=== PATIENT | female | born 2000 | race Caucasian/White ===

== ENCOUNTER 2019-11-20 22:55 | Emergency (ER) | payer OTHER, SELFPAY ==
[2019-11-20 23:19] VITALS: BP 94/63; PULSE 88; RESP 18; TEMP 36.6; O2SAT 98; BMI 25.0
--- NOTE | 2019-11-21 01:08 | ED_ITS ---
Entered by Talisha Morse, acting as scribe for Nov 20, 2019 22:55 HPI - Ear Problem General: Chief complaint: Ear Stated complaint: L EAR PAIN Time Seen by Provider: 11/21/19 01:03 Source: patient Mode of arrival: ambulatory Limitations: no limitations History of Present Illness: HPI Narrative: 19 yo f came to the er pov with spouse for left ear pain. Onset started today. Pt states that as of right now in the er she has no pain. MD Complaint: ear pain (left side) Location: left ear Duration: resolved Severity: mild Relieving factors: nothing Exacerbating factors: nothing Discharge from ear: no Associated symptoms: Reports ear or mastoid pain; Denies fever(s), headache(s) or hearing loss Treatment prior to arrival: none Review of Systems General: Reports: other (negative unless marked) Const: Denies: fever or chills Eyes: Denies: change in vision ENMT: Reports: ear pain; Denies: throat pain or mouth pain Card: Denies: chest pain Resp: Denies: shortness of breath GI: Denies: abdominal pain, nausea, vomiting or diarrhea : Denies: difficulty urinating Musc: Denies: back pain or joint pain Skin/Breast: Denies: rash Neuro: Denies: headache or behavioral changes Psych: Denies: depression Endo: Denies: excessive urination Corky/Lymph: Denies: easy bruising All/Imm: Denies: hives PFSH ED PFSH: Statuses (acute, chronic, etc) shown below reflect problem list status as previously entered and may not be historically accurate Social History Smoking and tobacco status: former smoker Female Reproductive History: Date of last menstrual period: 11/10/19 Physical Exam Const: COMMON NORMALS: no apparent distress, oriented x3 and healthy appearing HENMT: COMMON NORMALS: normocephalic and external nose normal HEAD & SCALP: normocephalic NOSE: external nose normal OTHER: Erythema to left ear canal Eye: COMMON NORMALS: PERRL PUPIL: Yes PERRL Neck/C-Spine: COMMON NORMALS: full ROM and no lymphadenopathy Chest: COMMONS NORMALS: inspection of chest normal Resp: COMMON NORMALS: normal respiratory effort, no use of accessory muscles and clear to auscultation bilaterally AUSCULTATION: clear to auscultation bilaterally Cardio: COMMON NORMALS: regular rate and regular rhythm RATE: regular rate RHYTHM: regular rhythm GI: COMMON NORMALS: normal to inspection, nondistended, normoactive bowel sounds, soft to palpation, non-tender and no masses PALPATION: Yes soft Back/Pelvis: THORACIC SPINE/UPPER BACK: Yes normal to inspection Extremity: COMMON NORMALS: normal to inspection, full ROM and normal capillary refill Neuro: COMMON NORMALS: oriented x3 Psych: COMMON NORMALS: mental status grossly normal and cooperative Skin: COMMON NORMALS: no rashes or lesions noted GENERAL SKIN EXAM: no rashes or lesions noted Course Vital Signs: Vital signs: Vital Signs Temperature 97.9 F 11/20/19 23:19 Pulse Rate 88 11/20/19 23:19 Respiratory Rate 18 11/20/19 23:19 Blood Pressure 94/63 11/20/19 23:19 Pulse Oximetry 98 11/20/19 23:19 MDM - Ear MDM Narrative: Medical decision making narrative: Patient presents here with ear pain is found to have otitis externa. Patient has no signs of otitis media. Patient prescribed Cortisporin and is stable for discharge. Discharge Plan Discharge Patient Disposition: Home, Self-Care Clinical Impression: Otitis externa Qualifiers: Otitis externa type: unspecified type Laterality: left Condition: Stable Prescriptions: New Cortisporin-TC 3.3-3-10-0.5 mg/mL drops,suspension 4 drop EAR-BOTH TID Qty: 10 RF: 0 Discharge Orders: Discharge Order (Routine); Ordered 11/21/19 Ordered By: Rakesh Valenzuela Referrals: Anusha Price DO [Family Provider] - Discharge Diet: Advance as tolerated Discharge Activity: Resume usual activity Patient Instructions: Otitis Externa (ED) Coding Level of Care Code ED Cpc for Chg Fwd The documentation recorded by the Lito hernandez Stephanie Lyn, accurately reflects the service I personally performed and the decisions made by Nicolas poon Korby, MD Nov 20, 2019 22:55
[2019-11-21 01:23] VITALS: BP 111/67; PULSE 58; RESP 18; O2SAT 98
[2019-11-21 01:29] VITALS: BP 121/70; PULSE 76; RESP 18; TEMP 36.8; O2SAT 98
== END 2019-11-21 01:31 | disposition home or self-care (01) ==
PROVIDERS: Emergency Provider Emergency Medicine; Family Provider Family Medicine
DX: H60.92 Unspecified otitis externa, left ear (principal); Z87.891 Personal history of nicotine dependence
CPT/HCPCS: 99281

== ENCOUNTER 2019-12-28 22:45 | Emergency (ER) | payer OTHER, SELFPAY ==
[2019-12-28 22:51] VITALS: BP 101/70; PULSE 68; RESP 18; TEMP 36.4; O2SAT 98; BMI 25.0
--- NOTE | 2019-12-29 00:21 | XR_ITS ---
WS: [id number] TWO-VIEW CHEST HISTORY: 19 years old Female with right posterior thorax pain PA and lateral chest comparison 09/07/2019 FINDINGS: No pneumothorax, pleural effusion, or consolidation/atelectasis. Cardiomediastinal silhouette and pul monary vascular markings are unremarkable. No subdiaphragmatic free air. No fracture or destruction s een. XR/XR chest 2V* [id number] IMPRESSION: 1. No acute cardiopulmonary findings. 2. No definite acute osseous abnormality. If there's thoracic back pain, consid er follow-up MRI thoracic spine, if clinically appropriate.
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
--- NOTE | 2019-12-29 00:33 | PC.NURSE ---
Clean catch urine collected and sent to lab
[2019-12-29 00:42] LABS: HCG Qualitative Urine. Negative (Negative)
[2019-12-29 01:14] VITALS: BP 107/69; PULSE 75; RESP 18; O2SAT 96
== END 2019-12-29 01:15 | disposition home or self-care (01) ==
PROVIDERS: Emergency Provider Nurse Practitioner; Family Provider Family Medicine; PCP Family Medicine
DX: M54.6 Pain in thoracic spine (principal)
CPT/HCPCS: 71046; 81025; 99281; 99282

== ENCOUNTER → 2019-12-29 16:35 | Outpatient (BNVA) | payer SELFPAY | PROVIDERS: Family Provider Family Medicine; PCP Nurse Practitioner; Visit Provider Nurse Practitioner Family | DX: R52 Pain, unspecified (principal); L05.01 Pilonidal cyst with abscess | CPT/HCPCS: 81003 ==

== ENCOUNTER 2020-01-24 21:37 | Emergency (ER) | payer OTHER, SELFPAY ==
[2020-01-24 21:38] VITALS: BP 109/78; PULSE 75; RESP 14; TEMP 36.7; O2SAT 74; BMI 25.3
--- NOTE | 2020-01-24 21:45 | PC.NURSE ---
Patient reports that she has had tailbone discomfort and swelling for 3 days. Patient denies any injury.
--- NOTE | 2020-01-24 21:47 | W.ED.BACK ---
HPI - Back Pain/Injury General: Chief Complaint: Back Pain/Injury Stated Complaint: SWOLLEN TAILBONE AREA Time Seen by Provider: 01/24/20 21:47 History of Present Illness: HPI Narrative: Patient is a 19-year-old female who comes to the ED with low back pain. Patient states that the pain started about 3 days ago. She says she has had some swelling around the tailbone area, but currently there is no swelling. She says she has trouble sitting for longer than 20 minutes without pain starting. She denies any injury or trauma to the tailbone region. She does say it is uncomfortable sleeping at night and if she is on her back and all causes pain. denies any numbness, tingling or weakness to any extremities. No pain radiating down the legs. No bladder or bowel incontinence. Associated symptoms: Deny abdominal pain, chills, dysuria, fatigue, fever(s), hematuria, nausea or vomiting Review of Systems Const: Denies: fever, chills or fatigue Eyes: Denies: change in vision or eye discomfort ENMT: Denies: throat pain, painful swallowing, nasal discharge or nasal congestion Card: Denies: chest pain, palpitations, edema, swelling of feet/ankles, shortness of breath on exertion or shortness of breath when lying down Resp: Denies: shortness of breath, productive cough or non-productive cough GI: Denies: abdominal pain, nausea, vomiting, diarrhea, constipation or blood in stool : Denies: flank pain, painful urination or blood in urine Musc: Reports: back pain (low back); Denies: neck pain or extremity swelling Skin/Breast: Denies: rash or new lesion Neuro: Denies: headache, numbness in extremities or weakness in extremities [facility] ED PFSH: Medical History ADD (attention deficit disorder) Anxiety Depression IBS (irritable bowel syndrome) Low back pain Family History Father Diabetes Social History Smoking and tobacco status: current some day smoker cigarettes Alcohol intake: current Alcohol intake frequency: few times a month History of recent travel: No Female Reproductive History: Date of last menstrual period: 01/01/20 Physical Exam Narrative: EXAM NARRATIVE: Patient is a 19-year-old female who is sitting comfortably on the exam bed when I enter the room. She is in no acute distress or pain. Const: COMMON NORMALS: oriented x3 HENMT: COMMON NORMALS: normocephalic HEAD & SCALP: normocephalic MOUTH: oral and palatal mucosa normal THROAT: posterior oropharynx normal and uvula midline Neck/C-Spine: COMMON NORMALS: supple GENERAL: Yes normal visual inspection Resp: COMMON NORMALS: normal respiratory effort, no retractions, no use of accessory muscles and clear to auscultation bilaterally AUSCULTATION: clear to auscultation bilaterally Cardio: COMMON NORMALS: regular rate, regular rhythm, S1 normal heart sound, S2 normal heart sound, no gallops, no clicks, no murmurs and peripheral pulses 2+ throughout RATE: regular rate RHYTHM: regular rhythm HEART SOUNDS: S1 normal and S2 normal PERIPHERAL PULSES: pulses 2+ throughout GI: COMMON NORMALS: normal to inspection, nondistended, normoactive bowel sounds, soft to palpation, non-tender and no masses PALPATION: Yes soft : COMMON NORMALS: Yes no CVA tenderness BLADDER/KIDNEY EXAM: Yes no CVA tenderness Back/Pelvis: COMMON NORMALS: no CVA tenderness LUMBAR SPINE/LOWER BACK: Yes paraspinal muscle tenderness (mild) Lumbar paraspinal muscle tenderness: bilateral OTHER: I did not notice any swelling in the lumbar spine region. Extremity: COMMON NORMALS: normal to inspection Neuro: COMMON NORMALS: oriented x3 and moves all extremities Skin: COMMON NORMALS: no rashes or lesions noted GENERAL SKIN EXAM: no rashes or lesions noted and dry skin Course Vital Signs: Vital signs: Vital Signs Temperature 98.1 F 01/24/20 21:38 Pulse Rate 89 01/24/20 22:22 Respiratory Rate 16 01/24/20 22:22 Blood Pressure 122/78 01/24/20 22:22 Pulse Oximetry 97 01/24/20 22:22 Discharge Plan Discharge Patient Disposition: Home, Self-Care Clinical Impression: Low back pain Qualifiers: Chronicity: acute Back pain laterality: bilateral Sciatica presence: without sciatica Qualified Code(s): M54.5 - Low back pain Condition: Stable Prescriptions: New Robaxin-750 750 mg tablet 750 mg PO Q8H Qty: 20 RF: 0 No Action ibuprofen 800 mg tablet 800 mg PO Q8H PRN (Reason: pain and inflammation) Qty: 90 RF: 1 Discharge Orders: Discharge Order (Routine); Ordered 01/24/20 Ordered By: Hai Barriga Referrals: Maggie Calderon FNP [Primary Care Provider] - Anusha Price DO [Family Provider] - Discharge Diet: Regular Discharge Activity: Resume usual activity Patient Instructions: Ibuprofen (By mouth), Acute Low Back Pain (ED) Activity Restrictions/Additional Instructions: Follow-up with your PCP in 7 days for reevaluation. You can take [id number] ibuprofen to help with any pain and inflammation. Take the Robaxin (muscle relaxer) at night because it can make you feel drowsy. Discharge Date/Time: 01/24/20 22:23 Coding Level of Care Code ED Regulatory Affairs Manager for Dannielle Fwd Exam Comprehensive
[2020-01-24] MEDS: orphenadrine 30 mg/mL Inj 2 mL 60 MG IM (22:18)
[2020-01-24] MEDS: ketorolac 30 mg/mL INJ IM (22:19)
[2020-01-24 22:22] VITALS: BP 122/78; PULSE 89; RESP 16; O2SAT 97
== END 2020-01-24 22:23 | disposition home or self-care (01) ==
PROVIDERS: Emergency Provider Physician Assistant; Family Provider Family Medicine; PCP Nurse Practitioner
DX: M54.5 Low back pain (principal); F90.9 Attention-deficit hyperactivity disorder, unspecified type
CPT/HCPCS: 12345; 96372; 99281; 99283; J1885; J2360

== ENCOUNTER 2020-01-31 09:26 | Emergency (ER) | payer OTHER, SELFPAY ==
[2020-01-31 09:27] VITALS: BMI 25.0
--- NOTE | 2020-01-31 09:28 | W.ED.PSYCH ---
HPI - Psych General: Chief Complaint: Psychiatric Symptoms Stated Complaint: SELF INFLICTED WOUND TO FOREARM Time Seen by Provider: 01/31/20 09:28 Source: patient Mode of arrival: EMS Limitations: no limitations History of Present Illness: HPI Narrative: Patient is a 19-year-old female who presents to ED today via EMS for complaints of self-inflicted cuts to her left forearm. Patient tells me her told her earlier today that she was leaving and this made patient very upset so she began cutting her left forearm with a razor blade. Patient told myself as well as EMS that she did not do this with an intention of self harming and denies suicidal thoughts. Patient states that she has cut previously in regards to anger. Patient tells me she does have a longstanding history of depression. She at one time was taking Prozac but has not been on this medication in over a year. She states she did not feel like it helped when she was on it. Patient is not homicidal. She denies hallucinations. MD complaint: other (self harming behavior by cutting ) Onset (ago): hour(s) History of same: Yes Exacerbating factors: other (social stressor ) Associated psychiatric symptoms: depression Associated symptoms: Reports depression; Deny auditory hallucinations, visual hallucinations, homicidal ideation or suicidal ideation Treatments prior to arrival: none If self harm: self-inflicted trauma Review of Systems Const: Denies: fever or chills Card: Denies: chest pain, palpitations, lightheadedness or syncope Resp: Denies: shortness of breath GI: Denies: abdominal pain, nausea, vomiting or diarrhea Skin/Breast: Denies: rash Neuro: Denies: headache Psych: Reports: depression; Denies: anxiety, visual hallucinations, auditory hallucinations, suicidal ideation or homicidal ideation [facility] ED PFSH: Social History Smoking and tobacco status: current some day smoker cigarettes Alcohol intake: current Alcohol intake frequency: few times a month History of recent travel: No Female Reproductive History: Date of last menstrual period: 01/01/20 Physical Exam Const: COMMON NORMALS: no apparent distress, oriented x3, alert and well nourished GENERAL APPEARANCE: cooperative and well kempt Resp: COMMON NORMALS: normal respiratory effort and clear to auscultation bilaterally AUSCULTATION: clear to auscultation bilaterally Cardio: COMMON NORMALS: regular rate and regular rhythm RATE: regular rate RHYTHM: regular rhythm Extremity: OTHER: several superficial wharton to L forearm-none requiring repair Neuro: COMMON NORMALS: oriented x3 SENSORIUM/ORIENTATION: Yes alert Psych: COMMON NORMALS: mental status grossly normal, thought process normal, cooperative, affect normal, speech normal and activity/motor behavior normal APPEARANCE: Yes well kempt ACTIVITY/MOTOR BEHAVIOR: Yes appropriate eye contact and No psychomotor agitation SPEECH: Yes normal speech THOUGHT PROCESS: normal thought process THOUGHT CONTENT: Yes normal thought content MEMORY/COGNITION: Yes memory grossly intact and Yes cognition grossly intact INSIGHT: insight good JUDGEMENT: fair MDM - Psych MDM Narrative: Medical decision making narrative: Patient does states she wishes to get on antidepressants again. I feel patient would be best served by doing a [facility] intake exam at this time. I do not wish to start patient on an SSRI from the ED as I have no follow-up with her. She does not want to come inpatient for help. Patient is not suicidal or homicidal therefore I do not have a reason to take away patient's rights and 96 her. Recommend she go straight from the ED to [facility] for her intake screening exam. Return to ED precautions given regarding suicidal thoughts. Patient agrees to return if these occur. Discharge Plan Discharge Patient Disposition: Home, Self-Care Clinical Impression: Self-harming behaviour Condition: Stable Prescriptions: No Action ibuprofen 800 mg tablet 800 mg PO Q8H PRN (Reason: pain and inflammation) Qty: 90 RF: 1 methocarbamol [Robaxin-750] 750 mg tablet 750 mg PO Q8H Qty: 20 RF: 0 Discharge Orders: Discharge Order (Routine); Ordered 01/31/20 Ordered By: Radha Castillo Referrals: Maggie Calderon FNP [Primary Care Provider] - Anusha Price DO [Family Provider] - Discharge Diet: Usual diet Discharge Activity: Resume usual activity Activity Restrictions/Additional Instructions: As discussed please go by [facility] today for your intake screening exam between the hours of 7:30-2:30. You have stated that you do not wish to go inpatient at this time and based on the fact that you have stated you are not suicidal or homicidal I do not feel this is acutely necessary. Please return to the emergency department immediately if you begin having thoughts of self-harm. Discharge Date/Time: 01/31/20 10:01 Coding Level of Care Code ED Iron Caster for Dannielle Amaya
[2020-01-31 09:33] VITALS: BP 127/101; PULSE 84; RESP 16; TEMP 36.7; O2SAT 98
--- NOTE | 2020-01-31 09:33 | PC.NURSE ---
WHEN PT ASKED ABOUT BEING SUICIDAL DOWN OR DEPRESSED SHE STATES NO, WHEN ASKED WHY SHE CUT HERSELF STATES MY TOLD ME SHE WAS LEAVING, PT TEARFUL DURING TRIAGE
== END 2020-01-31 10:01 | disposition home or self-care (01) ==
LOC: ER 09:48
PROVIDERS: Emergency Provider Physician Assistant; Family Provider Family Medicine; PCP Nurse Practitioner
DX: S51.812A Laceration without foreign body of left forearm, initial encounter (principal); Z91.5 Personal history of self-harm; X78.9XXA Intentional self-harm by unspecified sharp object, initial encounter; X78.8XXA Intentional self-harm by other sharp object, initial encounter
CPT/HCPCS: 12345; 99284

== ENCOUNTER → 2020-03-17 08:32 | Outpatient (BNVA) | payer OTHER, SELFPAY | PROVIDERS: Family Provider Family Medicine; PCP Nurse Practitioner; Visit Provider Counselor Professional | DX: F32.9 Major depressive disorder, single episode, unspecified (principal); F41.9 Anxiety disorder, unspecified; F90.9 Attention-deficit hyperactivity disorder, unspecified type | CPT/HCPCS: 90834 ==

== ENCOUNTER 2020-03-27 20:06 | Inpatient (IN) | payer SELFPAY ==
[2020-03-27 20:08] VITALS: BP 115/58; PULSE 111; RESP 18; TEMP 37.1; O2SAT 96; BMI 25.0
[2020-03-27 20:55] LABS: Basophils % 0.6 %; Eosinophils # 0.1 10^3/uL (0.0-0.8); Eosinophils % 1.5 %; Hematocrit 37.8 % (37.0-47.0); Hemoglobin 12.2 g/dL (11.5-15.3); Lymphocytes # 1.6 10^3/uL (0.8-4.8); Lymphocytes % 21.8 %; Mean Corpuscular HGB Conc 32.3 g/dL (30.0-36.0); Mean Corpuscular Hemoglobin 28.5 pg (28.0-34.0); Mean Corpuscular Volume 88.3 fL (81-99); Mean Platelet Volume 11.5 fL (7.4-10.4); Monocytes # 0.6 10^3/uL (0.2-0.9); Monocytes % 7.7 %; Neutrophils # 4.9 10^3/uL (1.8-7.7); Neutrophils % 68.1 %; Nucleated Red Blood Cells % 0 %; Platelet Count 201 10^3/cmm (130-400); Red Blood Count 4.28 10^6/uL (4.1-5.3); Red Cell Distribution Width 12.3 % (12.1-15.1); White Blood Count 7.2 10^3/uL (4.0-10.0)
[2020-03-27 21:08] LABS: Alanine Aminotransferase 158 U/L (0-33); Albumin Level 4.5 g/dL (3.5-5.2); Alkaline Phosphatase 100 IU/L (35-105); Anion Gap 15.9 (5-19); Aspartate Amino Transferase 108 U/L (0-32); Blood Urea Nitrogen 12 mg/dL (6-20); Calcium 9.5 mg/dL (8.5-10.5); Carbon Dioxide 24 mmol/L (22-29); Chloride 103 mmol/L (98-107); Globulin 2.8 g/dL (1.3-4.6); Glomerular Filtration Rate 105.6 mL/min (90-130); Glucose 84 mg/dL (65-115); Osmolality Calculated 283 mOsm/kg (285-295); Potassium 3.9 mmol/L (3.5-5.1); Sodium 139 mmol/L (136-145); Total Bilirubin 0.5 mg/dL (0.15-1.2); Total Protein 7.3 g/dL (6.6-8.7)
[2020-03-27 21:10] LABS: Add Urine Microscopic? YES; Bilirubin Urine Neg (NEGATIVE); Blood Urine 3+ (Negative); Glucose Urine UA Norm (Normal); HCG Qualitative Urine. Negative (Negative); Ketones Urine Negative (Negative); Leukocyte Esterase Urine Negative (Negative); Nitrate Urine Negative (Negative); Protein Urine Neg (Negative); Specific Gravity, Urine 1.015 (1.005-1.030); Urine Appearance Clear (CLEAR); Urine Color Yellow (Yellow); Urobilinogen Urine Norm (Negative); pH Urine 6 (5-7)
[2020-03-27 21:10] LABS: Acetaminophen < 5.0 ug/mL (10-30); Alcohol Level < 10 mg/dL (0-10)
[2020-03-27 21:17] LABS: Amphetamines Screen Urine Negative (Negative); Barbiturates Screen Urine Negative (Negative); Benzodiazepines Screen Urine Positive (Negative); Cocaine Screen Urine Negative (Negative); Opiate Screen Urine Negative (Negative); PCP Screen Urine Negative (Negative); THC Screen Urine Positive (Negative)
[2020-03-27 21:18] LABS: RBC Urine 0-4 /hpf (0-2); Squamous Epithelial Cell Urine 0-4 (0-5)
[2020-03-27 21:19] LABS: Add Urine Culture? No; Bacteria Urine 1+; Hyaline Casts Urine 0-4
[2020-03-27] MEDS: lidocaine 1% INJ 20 mL INTRADERMA (21:34)
[2020-03-27 22:00] VITALS: BP 111/77; PULSE 86; RESP 17; TEMP 37; O2SAT 97
--- NOTE | 2020-03-27 22:34 | XR_ITS ---
WS: [id number] XR hand RT 2V [id number] REASON FOR EXAM: punched a window FINDINGS: 2 views of the right hand show normal phalanges, metacarpals, and carpals. No definite frac tures are noted. The wrist joint appears to be normal. XR/XR hand RT 2V [id number] IMPRESSION: Negative right hand.
[2020-03-27 22:47] VITALS: RESP 18
--- NOTE | 2020-03-27 22:49 | PC.NURSE ---
Xray Portable xray of hand completed at 2249 at bedside ED5
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
[2020-03-28 06:00] VITALS: BP 107/65; PULSE 89; RESP 17; TEMP 36.6; O2SAT 98
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
[2020-03-28 14:00] VITALS: BP 99/67; PULSE 94; RESP 18; TEMP 37.1; O2SAT 99
[2020-03-28 22:00] VITALS: BP 97/65; PULSE 95; RESP 18; TEMP 37.3; O2SAT 96
[2020-03-28] MEDS: trazodone 50 mg Tablet PO (23:49)
[2020-03-29 06:00] VITALS: BP 87/52; PULSE 70; RESP 16; TEMP 36.6; O2SAT 96
[2020-03-29] MEDS: hyDROXYzine 25 mg Capsule 50 MG PO (12:42)
[2020-03-29 14:00] VITALS: BP 105/66; PULSE 110; RESP 18
--- NOTE | 2020-03-29 15:11 | P.PN_ITS ---
Subjective NPU Subjective: Interval history: Adriane presents today reporting that she is open to taking medication and respects the fact that she needs to stay given how things have gone. We discussed the risks benefits and alternatives of Paxil and Lamictal and she understood and agreed to proceed as is documented in this note. She continues to be focused on wanting to be discharged as soon as possible however she does understand she is on a 96-hour hold and will be up to the doctor when she is allowed to go. Mental Status Exam MSE Comments: This is a well-nourished well-developed white female with adequate dress grooming and eye contact. No abnormal movements except for mild psychomotor retardation. Cooperative with exam in mild distress. Speech was decreased rate and volume. Mood described as depressed, affect congruent. Thought process organized. Thought content: Patient denied current suicidal or homicidal ideation, there were no delusions were she denied any auditory visual hallucinations attention and concentration were intact and memory was mostly reliable but none were formally tested. She is alert and oriented x3. Insight and judgment are limited, but improving. Vitals/I&O/Wt Last Vital Signs Temp 99.1 F 03/29/20 22:00 Pulse 77 03/29/20 22:00 Resp 17 03/29/20 22:00 BP 97/58 03/29/20 22:00 Pulse Ox 99 03/29/20 22:00 Weight last 48 hrs Weight 76.374 kg Data NPU : 03/27/20 20:45 03/27/20 20:45 A&P Additional A&P Information (1) Suicidal ideation: This is a 19-year-old white female with a history of mental health treatment but having been on medication for years and presents with a conflict at home on a 96-hour hold currently resistant to restarting medication. 1. Continue current medication. We will start Paxil 10 mg p.o. x1 today and 20 mg p.o. every morning starting tomorrow as well as Lamictal 25 mg p.o. daily with a plan for schedule titration. 2. Encourage individual, group and milieu therapy. 3. Continue to 15-minute checks for safety. 4. Ensure appropriate follow-up at discharge. (2) History of ADHD: (3) Cluster B personality disorder: (4) Cannabis use disorder, mild, in early remission: (5) Post traumatic stress disorder (PTSD): Involuntary Hold Information 96 Hour Hold: 96 Hour Involuntary Admission: Yes 96 Hour Hold Ending Date: 04/02/20 96 Hour Hold Ending Time: 20:08 Attestations NPU Medical Necessity Statement*: Inpatient hospitalization is medically necessary and the clinically appropriate intervention at this time. We will offer medications make adjustments as indicated. Likely length of stay 2-4 days. Coding Level of Care Code Acute Telephone Exchange Operator for Dannielle Amaya
[2020-03-29] MEDS: PARoxetine 20 mg Tablet 10 MG PO (17:15)
[2020-03-29] MEDS: lamoTRIgine 25 mg Tablet PO (17:15)
--- NOTE | 2020-03-29 21:40 | PC.NURSE ---
pt offered trazodone but refused.
[2020-03-29 22:00] VITALS: BP 97/58; PULSE 77; RESP 17; TEMP 37.3; O2SAT 99
[2020-03-30] MEDS: ondansetron 4 MG Tablet PO (02:51)
--- NOTE | 2020-03-30 02:53 | PC.NURSE ---
Pt came to nurses desk and stated she woke up and noted her right ring finger knuckle was bleeding. While cleaning pt's finger, pt stated she felt nauseated. After dressing both fingers, pt was given zofran for nausea.
[2020-03-30 06:00] VITALS: BP 102/63; PULSE 76; RESP 16; TEMP 37; O2SAT 97
[2020-03-30] MEDS: lamoTRIgine 25 mg Tablet PO (09:23)
[2020-03-30] MEDS: PARoxetine 20 mg Tablet PO (09:23)
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
[2020-03-30 10:56] VITALS: BP 102/63; PULSE 76; RESP 16; TEMP 37; O2SAT 97
== END 2020-03-30 12:22 | disposition home or self-care (01) | DRG 885 ==
LOC: ER 21:04 → NP 22:22
PROVIDERS: Admitting Provider Psychiatry & Neurology Psychiatry; Emergency Provider Family Medicine; PCP Nurse Practitioner; Visit Provider Psychiatry & Neurology Psychiatry
DX: F31.81 Bipolar II disorder (principal); R45.851 Suicidal ideations; Z81.8 Family history of other mental and behavioral disorders; F98.8 Other specified behavioral and emotional disorders with onset usually occurring in childhood and adolescence; K58.9 Irritable bowel syndrome, unspecified; M54.5 Low back pain; F60.89 Other specific personality disorders; F12.90 Cannabis use, unspecified, uncomplicated; F43.12 Post-traumatic stress disorder, chronic
CPT/HCPCS: 12002; 12345; 36415; 73120; 80053; 80306; 80307; 81001; 81025; 85025; 99284; J2001; Q0162

== ENCOUNTER → 2020-06-24 13:55 | Outpatient (BNVA) | payer OTHER, SELFPAY | PROVIDERS: PCP Nurse Practitioner; Visit Provider Nurse Practitioner Psychiatric/Mental Health | DX: Z03.89 Encounter for observation for other suspected diseases and conditions ruled out (principal) | CPT/HCPCS: 80053 ==

== ENCOUNTER → 2020-07-06 14:55 | Outpatient (BNVA) | payer OTHER, SELFPAY | PROVIDERS: PCP Nurse Practitioner; Visit Provider Nurse Practitioner | DX: R39.89 Other symptoms and signs involving the genitourinary system (principal); Z68.25 Body mass index [BMI] 25.0-25.9, adult | CPT/HCPCS: 81000; 81003 ==

== ENCOUNTER → 2020-07-07 11:22 | Outpatient (BNVA) | payer OTHER, SELFPAY | PROVIDERS: PCP Nurse Practitioner; Visit Provider Family Medicine | DX: M54.5 Low back pain (principal); N80.9 Endometriosis, unspecified; N92.1 Excessive and frequent menstruation with irregular cycle; N94.6 Dysmenorrhea, unspecified; D17.9 Benign lipomatous neoplasm, unspecified; E87.1 Hypo-osmolality and hyponatremia; Z68.25 Body mass index [BMI] 25.0-25.9, adult; Z71.89 Other specified counseling | CPT/HCPCS: 81000; 81025 ==

== ENCOUNTER 2021-05-16 19:26 | Emergency (ER) | payer OTHER, SELFPAY ==
[2021-05-16 19:34] VITALS: BP 113/77; PULSE 88; RESP 17; TEMP 37.2; O2SAT 95; BMI 26.8
--- NOTE | 2021-05-16 19:47 | ED_ITS ---
HPI - Head Injury General: Chief complaint: Head Injury Stated complaint: head injury/syncope Time Seen by Provider: 05/16/21 19:47 PFSH ED PFSH: Medical History (Updated 05/07/21 @ 11:21 by Everette Han MD) ADD (attention deficit disorder) Anxiety Bipolar 2 disorder Depression Dysmenorrhea History of ADHD no support for this diangosis IBS (irritable bowel syndrome) IBS (irritable bowel syndrome) Lipoma Low back pain Family History Father Diabetes Social History (Updated 05/07/21 @ 10:45 by Aurelia Botello LPN) Smoking and tobacco status: never smoked Alcohol intake: current Alcohol intake frequency: few times a month Marital status: Life Partner Number of children: 0 Current occupational status: unemployed History of recent travel: No Female Reproductive History: Date of last menstrual period: 03/25/21 Course Vital Signs: Vital signs: Vital Signs Temperature 98.9 F 05/16/21 19:34 Pulse Rate 88 05/16/21 19:34 Respiratory Rate 17 05/16/21 19:34 Blood Pressure 113/77 05/16/21 19:34 Pulse Oximetry 95 05/16/21 19:34 Discharge Plan Discharge Prescriptions: No Action No Known Home Medications RF: 0 buspirone 5 mg tablet 5 mg PO TID Qty: 90 RF: 1 dicyclomine 10 mg capsule 10 mg PO TID Qty: 90 RF: 3 Coding Level of Care Code ED Vessel Slag Worker for Dannielle Amaya
--- NOTE | 2021-05-16 20:00 | ED_ITS ---
HPI - Psych General: Chief Complaint: Head Injury Stated Complaint: head injury/syncope Time Seen by Provider: 05/16/21 19:47 Source: patient Mode of arrival: ambulatory Limitations: no limitations History of Present Illness: HPI Narrative: Patient is a 21-year-old female who presents to ED today with complaints of a head injury after she hit her head repetitively up against a wall stating she was angry with herself. Patient also tells me over the past several days she has felt manic. She feels like she has too much energy inside of her, is having difficulty concentrating, and is very irritable. She tells me she does have a diagnosis of bipolar. She is supposed to be taking buspirone however admittedly does not take this regularly. Patient flagged positive on her suicidal questions in triage. When asked about this patient tells me she does have depression and often feels like she does not want to wake up. She tells me she has significant socioeconomic stressors stating that she does not have a job, is living in poor conditions in an apartment filled with black mold, and has no hopes that her life will ever get any better. Patient tells me she has thought about suicidal ideations but states that she has seen what the next life is and reports it is darkness so she states this life is better than that. Patient does not want to go to [facility] and is tearful stating that she feels I am going to force her to go . complaint: feels depressed and other (angelo, head injury) Associated symptoms: Reports depression Review of Systems Const: Denies: fever(s), chills, body aches, fatigue or malaise Eyes: Denies: change in vision, blurry vision, photophobia, floaters or seeing flashes Card: Denies: chest pain Resp: Denies: dyspnea GI: Denies: abdominal pain Musc: Denies: neck pain or back pain Skin/Breast: Denies: rash Neuro: Reports: headache(s); Denies: numbness in extremities, weakness in extremities, sensory changes, dizziness, confusion or seizure-like activity Psych: Reports: anxiety, depression, hopelessness and irritability [facility] ED PFSH: Medical History (Updated 05/16/21 @ 21:14 by GIOVANI Diamond) ADD (attention deficit disorder) Anxiety Bipolar 2 disorder Depression Dysmenorrhea History of ADHD no support for this diangosis IBS (irritable bowel syndrome) IBS (irritable bowel syndrome) Lipoma Low back pain Family History Father Diabetes Social History (Updated 05/07/21 @ 10:45 by Aurelia Botello LPN) Smoking and tobacco status: never smoked Alcohol intake: current Alcohol intake frequency: few times a month Marital status: Life Partner Number of children: 0 Current occupational status: unemployed History of recent travel: No Female Reproductive History: Date of last menstrual period: 03/25/21 Physical Exam Const: COMMON NORMALS: no acute distress, average body habitus, patient oriented x3, no limitations, healthy appearing, alert and well nourished HENMT: COMMON NORMALS: normocephalic HEAD & SCALP: normocephalic and other (R frontal hematoma) Neck/C-Spine: COMMON NORMALS: full ROM CERVICAL SPINE: No pain with cervical ROM, No Cervical spine tenderness and No Paracervical muscle tenderness Neuro: HUY COMA SCALE: document GCS findings [place] coma scale eye opening: Spontaneous [place] coma scale verbal response: Orientated [place] coma scale motor response: Obey commands [place] coma scale total score: 15 COMMON NORMALS: patient oriented x3 SENSORIUM/ORIENTATION: Yes alert Psych: COMMON NORMALS: mental status grossly normal, Normal thought process present, cooperative, speech normal and activity/motor behavior normal APPEARANCE: Yes grossly normal ATTITUDE: Yes calm ACTIVITY/MOTOR BEHAVIOR: Yes appropriate eye contact SPEECH: Yes normal speech MOOD & AFFECT: Yes sad and Yes tearful THOUGHT PROCESS: Normal thought process present THOUGHT CONTENT: Yes Normal thought content present ATTENTION/CONCENTRATION: Yes attention grossly intact and Yes concentration grossly intact MEMORY/COGNITION: Yes memory grossly intact and Yes cognition grossly intact INSIGHT: Good insight present (Psych) JUDGEMENT: Good judgement present (Psych) Course Vital Signs: Vital signs: Vital Signs Temperature 98.9 F 05/16/21 19:34 Pulse Rate 75 05/16/21 21:32 Respiratory Rate 17 05/16/21 21:32 Blood Pressure 121/73 05/16/21 21:32 Pulse Oximetry 98 05/16/21 21:32 MDM - Psych MDM Narrative: Medical decision making narrative: Patient's head CT is negative. She was evaluated by Dr. Jim. Please refer to his specific note for assessment. He requested patient's buspirone be increased to 10 mg 3 times daily and follow-up with behavioral health. We will have case management contact patient to help with this appointment. Strict return to ED precautions given. Lab Data: Labs: Lab Results 05/16/21 05/16/21 05/16/21 Range/Units 19:50 19:50 19:50 WBC 10.8 H (4.0-10.0) 10^3/ uL RBC 4.62 (4.1-5.3) 10^6/u L Hgb 13.6 (11.5-15.3) g/dL Hct 40.9 (37.0-47.0) % MCV 88.5 (81-99) fL MCH 29.4 (28.0-34.0) pg MCHC 33.3 (30.0-36.0) g/dL RDW 12.6 (12.1-15.1) % Plt Count 259 (130-400) 10^3/c mm MPV 11.6 H (7.4-10.4) fL Neut % (Auto) 82.0 % Lymph % (Auto) 13.3 % [place] % (Auto) 3.7 % Eos % (Auto) 0.1 % Baso % (Auto) 0.5 % Neut # (Auto) 8.86 H (1.8-7.7) 10^3/u L Lymph # (Auto) 1.4 (0.8-4.8) 10^3/u L [place] # (Auto) 0.4 (0.2-0.9) 10^3/u L Eos # (Auto) 0.0 (0.0-0.8) 10^3/u L Baso # (Auto) 0.1 (0.0-0.1) 10^3/u L Nucleated RBC % (a uto) 0 % Nucleated RBCs # 0.0 /100WBC Sodium 139 (136-145) mmol/L Potassium 3.7 (3.5-5.1) mmol/L Chloride 107 (98-107) mmol/L Carbon Dioxide 21 L (22-29) mmol/L Anion Gap 14.7 (5-19) BUN 8 (6-20) mg/dL Creatinine 0.6 (0.5-0.9) mg/dL GFR Calculation 123.9 (90-130) mL/min Glucose 93 (65-115) mg/dL Calculated Osmolal ity 286 (285-295) mOsm/k g Calcium 10.0 (8.5-10.5) mg/dL Total Bilirubin 0.9 (0.15-1.2) mg/dL AST 13 (0-32) U/L ALT 13 (0-33) U/L Alkaline Phosphata se 75 (35-105) IU/L Total Protein 7.1 (6.6-8.7) g/dL Albumin 4.6 (3.5-5.2) g/dL Globulin 2.5 (1.3-4.6) g/dL HCG, Qual Negative (Negative) Salicylates < 0.3 L (3-10) mg/dL Urine Opiates Scre en (Negative) ng/mL Acetaminophen < 5.0 L (10-30) ug/mL Ur Barbiturates Sc reen (Negative) ng/mL Ur Phencyclidine S crn (Negative) ng/mL Ur Amphetamines Sc reen (Negative) ng/mL U Benzodiazepines Scrn (Negative) ng/mL Urine Cocaine Scre en (Negative) ng/mL U Marijuana (THC) Screen (Negative) ng/mL Ethyl Alcohol < 10 (0-10) mg/dL 05/16/21 Range/Units 20:02 WBC (4.0-10.0) 10^3/ uL RBC (4.1-5.3) 10^6/u L Hgb (11.5-15.3) g/dL Hct (37.0-47.0) % MCV (81-99) fL MCH (28.0-34.0) pg MCHC (30.0-36.0) g/dL RDW (12.1-15.1) % Plt Count (130-400) 10^3/c mm MPV (7.4-10.4) fL Neut % (Auto) % Lymph % (Auto) % [place] % (Auto) % Eos % (Auto) % Baso % (Auto) % Neut # (Auto) (1.8-7.7) 10^3/u L Lymph # (Auto) (0.8-4.8) 10^3/u L [place] # (Auto) (0.2-0.9) 10^3/u L Eos # (Auto) (0.0-0.8) 10^3/u L Baso # (Auto) (0.0-0.1) 10^3/u L Nucleated RBC % (a uto) % Nucleated RBCs # /100WBC Sodium (136-145) mmol/L Potassium (3.5-5.1) mmol/L Chloride (98-107) mmol/L Carbon Dioxide (22-29) mmol/L Anion Gap (5-19) BUN (6-20) mg/dL Creatinine (0.5-0.9) mg/dL GFR Calculation (90-130) mL/min Glucose (65-115) mg/dL Calculated Osmolal ity (285-295) mOsm/k g Calcium (8.5-10.5) mg/dL Total Bilirubin (0.15-1.2) mg/dL AST (0-32) U/L ALT (0-33) U/L Alkaline Phosphata se (35-105) IU/L Total Protein (6.6-8.7) g/dL Albumin (3.5-5.2) g/dL Globulin (1.3-4.6) g/dL HCG, Qual (Negative) Salicylates (3-10) mg/dL Urine Opiates Scre en Negative (Negative) ng/mL Acetaminophen (10-30) ug/mL Ur Barbiturates Sc reen Negative (Negative) ng/mL Ur Phencyclidine S crn Negative (Negative) ng/mL Ur Amphetamines Sc reen Negative (Negative) ng/mL U Benzodiazepines Scrn Negative (Negative) ng/mL Urine Cocaine Scre en Negative (Negative) ng/mL U Marijuana (THC) Screen Positive H (Negative) ng/mL Ethyl Alcohol (0-10) mg/dL Imaging Data^: CT Head: Radiologist's impression: [facility] [address] [place] [address] CT Scan Report Signed Patient: Adriane Handley Unit #: [id number] : 2000 Age/Sex: 21 / F ADM Date: 05/16/21 Loc: ER Room/Bed: Attending Dr: Ordering Provider/Ordering MD: Radha Castillo Date of Service: 05/16/21 Procedure(s): CT head wo con* [id number] Accession Number(s): [id number] Report Number: [id number] PROCEDURE INFORMATION: Exam: CT Head Without Contrast Exam date and time: 05/16/2021 7:59 PM Age: 21 years old Clinical indication: Injury or trauma; Other: Self inflicted; Blunt trauma (contusions or hematomas); Without loss of consciousness; Patient HX: Repeatedly hit head against a wall - denies loc C/O pain and forehead hematoma TECHNIQUE: Imaging protocol: Computed tomography of the head without contrast. Total images: 204 Radiation optimization: All CT scans at this facility use at least one of these dose optimization techniques: automated exposure control; mA and/or kV adjustment per patient size (includes targeted exams where dose is matched to clinical indication); or iterative reconstruction. COMPARISON: CT head wo con* [id number] 07/16/2019 10:01 PM RADIATION DOSE METRICS: Total DLP (mGy-cm): 827 FINDINGS: Brain: Normal. No hemorrhage. Unremarkable white matter. No mass effect. Cerebral ventricles: No ventriculomegaly. Paranasal sinuses: Visualized sinuses are unremarkable. No fluid levels. Mastoid air cells: Visualized mastoid air cells are well aerated. Bones/joints: Unremarkable. No acute fracture. Soft tissues: Unremarkable. CT/CT head wo con* [id number] IMPRESSION: No acute intracranial abnormality. Radiation Dose CTDIVOL = (mGy): DLP = 827 (mGy-cm) Dictated By: Derrick Plascencia Signed By: Derrick Plascencia Signed Date/Time: 05/16/212050 DD/ 48 Discharge Plan Discharge Patient Disposition: Home Clinical Impression: Passive suicidal ideations Traumatic hematoma of forehead Qualifiers: Encounter type: initial encounter Qualified Code(s): S00.83XA - Contusion of other part of head, initial encounter Condition: Stable Prescriptions: New buspirone 10 mg tablet 10 mg PO TID Qty: 90 RF: 0 Discontinued buspirone 5 mg tablet 5 mg PO TID Qty: 90 RF: 1 No Action dicyclomine 10 mg capsule 10 mg PO TID Qty: 90 RF: 3 Discharge Orders: Discharge ED (Routine); Ordered 05/16/21 Ordered By: Radha Castillo Referrals: Everette Han MD [Primary Care Provider] - Activity Restrictions/Additional Instructions: Your head CT is negative. You were evaluated by Dr. Jim who recommends increasing your buspirone to 10 mg three times daily. You need to follow-up at [facility] as soon as possible. I will have case management contact you next week to help assist you in getting an appointment. You need to return to the emergency department immediately for any thoughts of wanting to harm yourself or others. Coding Level of Care Code ED Still Operator Brandy for Chg Fwd Exam Detailed
[2021-05-16 20:27] LABS: Basophils # 0.1 10^3/uL (0.0-0.1); Basophils % 0.5 %; Eosinophils % 0.1 %; Hematocrit 40.9 % (37.0-47.0); Hemoglobin 13.6 g/dL (11.5-15.3); Lymphocytes # 1.4 10^3/uL (0.8-4.8); Lymphocytes % 13.3 %; Mean Corpuscular HGB Conc 33.3 g/dL (30.0-36.0); Mean Corpuscular Hemoglobin 29.4 pg (28.0-34.0); Mean Corpuscular Volume 88.5 fL (81-99); Mean Platelet Volume 11.6 fL (7.4-10.4); Monocytes # 0.4 10^3/uL (0.2-0.9); Monocytes % 3.7 %; Neutrophils # 8.86 10^3/uL (1.8-7.7); Nucleated Red Blood Cells % 0 %; Platelet Count 259 10^3/cmm (130-400); Red Blood Count 4.62 10^6/uL (4.1-5.3); Red Cell Distribution Width 12.6 % (12.1-15.1); White Blood Count 10.8 10^3/uL (4.0-10.0)
[2021-05-16 20:36] LABS: HCG, Serum Qual Negative (Negative)
[2021-05-16 20:39] LABS: Amphetamines Screen Urine Negative (Negative); Barbiturates Screen Urine Negative (Negative); Benzodiazepines Screen Urine Negative (Negative); Cocaine Screen Urine Negative (Negative); Opiate Screen Urine Negative (Negative); PCP Screen Urine Negative (Negative); THC Screen Urine Positive (Negative)
[2021-05-16 20:41] LABS: Alanine Aminotransferase 13 U/L (0-33); Albumin Level 4.6 g/dL (3.5-5.2); Alkaline Phosphatase 75 IU/L (35-105); Anion Gap 14.7 (5-19); Aspartate Amino Transferase 13 U/L (0-32); Blood Urea Nitrogen 8 mg/dL (6-20); Carbon Dioxide 21 mmol/L (22-29); Chloride 107 mmol/L (98-107); Creatinine Clr Calc Pharmacy 151.2432; Globulin 2.5 g/dL (1.3-4.6); Glomerular Filtration Rate 123.9 mL/min (90-130); Glucose 93 mg/dL (65-115); Osmolality Calculated 286 mOsm/kg (285-295); Potassium 3.7 mmol/L (3.5-5.1); Sodium 139 mmol/L (136-145); Total Bilirubin 0.9 mg/dL (0.15-1.2); Total Protein 7.1 g/dL (6.6-8.7)
[2021-05-16 20:48] LABS: Acetaminophen < 5.0 ug/mL (10-30); Alcohol Level < 10 mg/dL (0-10); Salicylate < 0.3 mg/dL (3-10)
[2021-05-16 21:32] VITALS: BP 121/73; PULSE 75; RESP 17; O2SAT 98
--- NOTE | 2021-05-20 12:11 | PC.SOCIAL ---
Referral received for [facility] by Radha Castillo on 05/16/2021. On 05/19/2021 called [facility] and scheduled appt with Ruby Grant provider there on 06/03/2021 at 3:15pm. Called patient prior to scheduling and she was agreeable. Called and updated her on appt. She had some questions but did agree to keep appt and if she decides not to attend was advised to call and cancel.
--- NOTE | 2021-07-09 12:29 | DCPLANNER ---
Patient had a follow up appointment scheduled for 06.03.21 at [facility] - patient did attend appointment.
== END 2021-05-16 21:33 | disposition home or self-care (01) ==
PROVIDERS: Emergency Provider Physician Assistant; PCP Family Medicine Adult Medicine
DX: S00.83XA Contusion of other part of head, initial encounter (principal); R45.851 Suicidal ideations; W22.8XXA Striking against or struck by other objects, initial encounter
CPT/HCPCS: 70450; 80053; 80306; 80307; 84703; 85025; 99283

== ENCOUNTER → 2022-08-18 14:38 | Outpatient (BNVA) | payer BC, SELFPAY | PROVIDERS: PCP Family Medicine Adult Medicine; Visit Provider Obstetrics & Gynecology | DX: Z01.419 Encounter for gynecological examination (general) (routine) without abnormal findings (principal); R39.9 Unspecified symptoms and signs involving the genitourinary system | CPT/HCPCS: 81000; 88175 ==

== ENCOUNTER 2022-11-08 08:12 | Outpatient (CLI) | payer BC, SELFPAY ==
--- NOTE | 2022-11-08 08:35 | CT_ITS ---
WS: [id number] CT ABDOMEN AND PELVIS WITH CONTRAST HISTORY: ABDOMINAL PAIN TECHNIQUE: Imaging performed of the abdomen and pelvis with IV contrast. Single phase imaging of the abdomen. Coronal and sagittal reformats are submitted. All CT scans at [facility] use at [address] one of these dose optimization techniques: automated exposure control; mA and/or kV adjustment per patient size (includes targeted exams where dose is matched to clinical indication); or iterative re construction. IV CONTRAST: Omnipaque 350; 95 mL IV. Oral contrast: Yes. DLP: 423.51 mGy.cm COMPARISON: Liver ultrasound 10/31/2022 Lower thorax: Lung bases are clear. Heart is normal size. No hiatal hernia. Liver/biliary system: Liver is mild to moderately enlarged. Liver is elongated and measures 19.7 cm i n length. Liver is measuring slightly greater than on the prior ultrasound from 10/31/2022. No bile d uct dilatation. No mass identified. Portal vein is patent. Gallbladder: Normal. No gallstones or wall thickening. No pericholecystic fluid. Pancreas: Normal size pancreas and pancreatic duct. No adjacent inflammation. Spleen: Spleen is top normal size measuring 13.2 cm in length. Normal density. Adrenal glands: Normal. Right kidney: Normal. Left kidney: Normal. Aorta: Normal. Lymphadenopathy: None. Free fluid: None. GI tract: Normal appendix. No GI tract obstruction. Abdominal wall: Unremarkable abdominal wall. No hernia. Pelvis: Mildly retroverted uterus. Small follicles in each ovary. The largest within the LEFT ovary m easures 2.2 cm. Bones: Unremarkable. CT/CT abdomen pelvis w con* [id number] IMPRESSION: 1. Mild to moderate hepatomegaly. Liver appears slightly greater in size than on the prior ultrasound from 10/31/2020. No intrahepatic duct dilatation or mas s. 2. Top normal size spleen. 3. Negative gallbladder. 4. No renal obstruction. 5. Normal appendix.
[2022-11-08] MEDS: iohexol 350 mg/mL 500 mL Btl (per mL) PO (10:12)
== END 2022-11-08 08:13 | disposition home or self-care (01) ==
PROVIDERS: PCP Family Medicine Adult Medicine; Visit Provider Electrodiagnostic Medicine
DX: R10.9 Unspecified abdominal pain (principal); R16.0 Hepatomegaly, not elsewhere classified
CPT/HCPCS: 74177; Q9967

== ENCOUNTER 2022-11-08 09:59 | Emergency (ER) | payer BC, SELFPAY ==
[2022-11-08] VITALS (41 sets, daily range): BP systolic 91–108; BP diastolic 57–70; PULSE 44–83; RESP 7–27; O2SAT 96–100; BMI 24.2
--- NOTE | 2022-11-08 10:18 | ED_ITS ---
HPI - Syncope General: Chief Complaint: Syncope Stated Complaint: VAGAL SYNCOPE Time Seen by Provider: 11/08/22 10:11 Source: patient Mode of arrival: wheelchair History of Present Illness: 22-year-old female was in the CT suite at the medical office building and restarting an IV the IV blew the little difficulty she got lightheaded dizzy and passed out shortly after this happened. She is feeling a little better now still feels somewhat lightheaded. She was given a CT for some persistent abdominal discomfort. She denies any recent illness no vomiting no diarrhea no dysuria urgency or frequency constipation or diarrhea. There is a notation from her primary care doctor on an order about elevated liver enzymes. We do not have any recent lab work on the patient and she is seen at a clinic outside of the [facility] system. complaint: almost passed out Onset (ago): minute(s) Prodromal symptoms: lightheaded Witnessed: Yes - by Bystander Context: other (During IV placement) Injuries sustained associated with event: none Associated symptoms: Deny abdominal pain, chest pain, fever(s), headache(s), lightheadedness, nausea, short of breath, vertigo or weakness Treatments prior to arrival: none Review of Systems Const: Denies: fever(s) or chills ENMT: Denies: throat pain, ear or mastoid pain, nasal discharge or nasal congestion Card: Denies: chest pain, palpitations, irregular heart rhythm or lightheadedness Resp: Denies: dyspnea, productive cough or non-productive cough GI: Denies: abdominal pain or nausea : Denies: flank pain, difficulty voiding, dysuria, urinary frequency or urinary urgency Skin/Breast: Denies: rash or pruritus Neuro: Denies: headache(s) or vertigo PFSH ED PFSH: Medical History ADD (attention deficit disorder) Anxiety Bipolar 2 disorder Depression Dysmenorrhea History of ADHD no support for this diangosis History of chlamydia IBS (irritable bowel syndrome) IBS (irritable bowel syndrome) Lipoma Low back pain Family History Father Diabetes Hypercholesteremia Denies family history of Colon cancer Ovarian cancer Heart disease Breast cancer Hypertension Uterine cancer Thyroid disease Stroke Social History Smoking and tobacco status: never smoked Female Reproductive History: Date of last menstrual period: 03/25/21 Physical Exam Const: GENERAL APPEARANCE: cooperative and comfortable ORIENTATION/CONSCIOUSNESS: Yes awake, Yes oriented to person, Yes oriented to place and Yes oriented to time HENMT: COMMON NORMALS: normocephalic, atraumatic and hearing grossly normal bilaterally HEAD & SCALP: normocephalic and atraumatic Eye: COMMON NORMALS: Equal, round and reactive pupils present, EOMs intact bilaterally, conjunctivae normal and no scleral icterus CONJUNCTIVA: Yes conjunctivae normal PUPIL: Yes Equal, round and reactive pupils present Neck/C-Spine: COMMON NORMALS: full ROM, no lymphadenopathy and supple Lymph: LYMPHATIC: no lymphadenopathy noted and no lymphedema noted Resp: COMMON NORMALS: normal respiratory effort, No retractions, No use of accessory muscles and clear to auscultation bilaterally AUSCULTATION: clear to auscultation bilaterally Cardio: COMMON NORMALS: regular rate, regular rhythm and No murmurs present (Cardio) RATE: regular rate RHYTHM: regular rhythm GI: COMMON NORMALS: Soft to palpation and No hepatosplenomegaly present AUSCULTATION: Yes normoactive bowel sounds PALPATION: Yes Soft to palpation, No Tenderness to palpation present (GI), No Guarding due to palpation present (GI) and Yes No hepatosplenomegaly present Extremity: COMMON NORMALS: normal to inspection, capillary refill normal, no clubbing, cyanosis or edema, no calf tenderness and no pedal edema Neuro: SENSORIUM/ORIENTATION: Yes oriented to person, Yes oriented to place and Yes oriented to time Skin: COMMON NORMALS: no rashes or lesions noted GENERAL SKIN EXAM: no r ashes or lesions noted Course Vital Signs: Vital signs: Vital Signs Pulse Rate 49 L 11/08/22 12:30 Respiratory Rate 17 11/08/22 12:30 Blood Pressure 91/57 11/08/22 12:30 Pulse Oximetry 100 11/08/22 12:30 Oxygen Delivery Me thod 11/08/22 10:11 MDM - Syncope Medical Decision Making Patient had recurrent symptoms when IV was started here otherwise is doing well she is given IV fluids will be discharged from the ER and return to CT with IV and placed complete her outpatient studies today. Medical Records I reviewed the patient's medical records. Lab Data I reviewed the patient's lab results. 11/08/22 11:15 11/08/22 11:15 Laboratory Results WBC 5.8 10^3/uL (4.0-10.0) 11/08/22 11:15 RBC 4.20 10^6/uL (4.1-5.3) 11/08/22 11:15 Hgb 12.9 g/dL (11.5-15.3) 11/08/22 11:15 Hct 38.3 % (37.0-47.0) 11/08/22 11:15 MCV 91.2 fl (81-99) 11/08/22 11:15 MCH 30.7 pg (28.0-34.0) 11/08/22 11:15 MCHC 33.7 g/dL (30.0-36.0) 11/08/22 11:15 RDW 12.4 % (12.1-15.1) 11/08/22 11:15 Plt Count 200 10^3/cmm (130-400) 11/08/22 11:15 MPV 11.2 fL (7.4-10.4) H 11/08/22 11:15 Neut % (Auto) 62.1 % 11/08/22 11:15 Lymph % (Auto) 29.1 % 11/08/22 11:15 [place] % (Auto) 6.1 % 11/08/22 11:15 Eos % (Auto) 1.7 % 11/08/22 11:15 Baso % (Auto) 0.7 % 11/08/22 11:15 Neut # (Auto) 3.58 10^3/uL (1.8-7.7) 11/08/22 11:15 Lymph # (Auto) 1.7 10^3/uL (0.8-4.8) 11/08/22 11:15 [place] # (Auto) 0.4 10^3/uL (0.2-0.9) 11/08/22 11:15 Eos # (Auto) 0.1 10^3/uL (0.0-0.8) 11/08/22 11:15 Baso # (Auto) 0.0 10^3/uL (0.0-0.1) 11/08/22 11:15 Nucleated RBC % (auto) 0 % 11/08/22 11:15 Nucleated RBCs # 0.0 /100WBC 11/08/22 11:15 Sodium 135 mmol/L (136-145) L 11/08/22 11:15 Potassium 4.0 mmol/L (3.5-5.1) 11/08/22 11:15 Chloride 103 mmol/L (98-107) 11/08/22 11:15 Carbon Dioxide 25 mmol/L (22-29) 11/08/22 11:15 Anion Gap 11.0 (5-19) 11/08/22 11:15 BUN 9 mg/dL (6-20) 11/08/22 11:15 Creatinine 0.4 mg/dL (0.5-0.9) L 11/08/22 11:15 GFR Calculation 196.1 mL/min (90-130) H 11/08/22 11:15 Glucose 88 mg/dL (65-115) 11/08/22 11:15 Calculated Osmolality 278 mOsm/kg (285-295) L 11/08/22 11:15 Calcium 9.2 mg/dL (8.5-10.5) 11/08/22 11:15 Total Bilirubin 0.6 mg/dL (0.15-1.2) 11/08/22 11:15 AST 16 U/L (0-32) 11/08/22 11:15 ALT 16 U/L (0-33) 11/08/22 11:15 Alkaline Phosphatase 76 U/L (35-105) 11/08/22 11:15 Total Protein 6.3 g/dL (6.6-8.7) L 11/08/22 11:15 Albumin 4.2 g/dL (3.5-5.2) 11/08/22 11:15 Globulin 2.1 g/dL (1.3-4.6) 11/08/22 11:15 Discharge Plan Discharge Patient Disposition: Home Clinical Impression: Vasovagal syncope Condition: Stable Prescriptions: No Action amitriptyline 10 mg Tablet 10 mg PO BEDTIME venlafaxine 37.5 mg Tablet 37.5 mg PO DAILY Discharge Orders: Discharge ED (Routine); Ordered 11/08/22 Ordered By: Ervin Nolan Referrals: Everette Han MD [Primary Care Provider] - Discharge Diet: Usual diet Discharge Activity: Increase activity as tolerated Patient Instructions: Opioid Safety, Pain Management Activity Restrictions/Additional Instructions: You were seen today for a syncopal episode. Suspect this is caused by vasovagal symptoms syncope related to the attempted IV start. Increase fluids return for further problems. Coding Level of Care Code ED Waist Fitter for Chg Fwd Exam Comprehensive
--- NOTE | 2022-11-08 10:36 | ECG_ITS ---
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 Measurements Intervals [place] Rate: 44 P: 53 W[place]: 137 QRS: 90 QRSD: 102 T: 75 QT: 459 QTc: 396 Interpretive Statements SINUS BRADYCARDIA No previous ECG available for comparison Electronically Signed On 11-08-2022 17:47:02 RADIO ANNOUNCER by Kendall Avila M.D. [id number]
[2022-11-08 11:19] LABS: Basophils % 0.7 %; Eosinophils # 0.1 10^3/uL (0.0-0.8); Eosinophils % 1.7 %; Hematocrit 38.3 % (37.0-47.0); Hemoglobin 12.9 g/dL (11.5-15.3); Lymphocytes # 1.7 10^3/uL (0.8-4.8); Lymphocytes % 29.1 %; Mean Corpuscular HGB Conc 33.7 g/dL (30.0-36.0); Mean Corpuscular Hemoglobin 30.7 pg (28.0-34.0); Mean Corpuscular Volume 91.2 fl (81-99); Mean Platelet Volume 11.2 fL (7.4-10.4); Monocytes # 0.4 10^3/uL (0.2-0.9); Monocytes % 6.1 %; Neutrophils # 3.58 10^3/uL (1.8-7.7); Neutrophils % 62.1 %; Nucleated Red Blood Cells % 0 %; Platelet Count 200 10^3/cmm (130-400); Red Cell Distribution Width 12.4 % (12.1-15.1); White Blood Count 5.8 10^3/uL (4.0-10.0)
[2022-11-08] MEDS: sodium chloride 0.9% 1,000 ML 999 ML IV (11:23)
[2022-11-08 11:38] LABS: Alanine Aminotransferase 16 U/L (0-33); Albumin Level 4.2 g/dL (3.5-5.2); Alkaline Phosphatase 76 U/L (35-105); Aspartate Amino Transferase 16 U/L (0-32); Blood Urea Nitrogen 9 mg/dL (6-20); Calcium 9.2 mg/dL (8.5-10.5); Carbon Dioxide 25 mmol/L (22-29); Chloride 103 mmol/L (98-107); Globulin 2.1 g/dL (1.3-4.6); Glomerular Filtration Rate 196.1 mL/min (90-130); Glucose 88 mg/dL (65-115); Osmolality Calculated 278 mOsm/kg (285-295); Sodium 135 mmol/L (136-145); Total Bilirubin 0.6 mg/dL (0.15-1.2); Total Protein 6.3 g/dL (6.6-8.7)
== END 2022-11-08 13:45 | disposition home or self-care (01) ==
PROVIDERS: Emergency Provider Family Medicine; PCP Family Medicine Adult Medicine
DX: R55 Syncope and collapse (principal)
CPT/HCPCS: 80053; 85025; 93005; 96360; 99284; J7030

== ENCOUNTER 2023-07-10 14:53 | Outpatient (CLI) | payer BC, SELFPAY | END 2023-07-10 14:54 | disposition home or self-care (01) | PROVIDERS: PCP Family Medicine Adult Medicine; Visit Provider Family Medicine | DX: O20.9 Hemorrhage in early pregnancy, unspecified (principal); Z3A.00 Weeks of gestation of pregnancy not specified | CPT/HCPCS: 86900 ==

== ENCOUNTER 2023-12-23 14:40 | Outpatient (CLI) | payer BC, SELFPAY ==
[2023-12-23 14:45] VITALS: BMI 28.1
[2023-12-23 14:58] VITALS: BP 121/82; PULSE 60
[2023-12-23 15:14] VITALS: BP 113/66; PULSE 73
[2023-12-23 15:19] LABS: Add Urine Culture? Yes; Bacteria Urine 2+ /hpf; Bilirubin Urine Neg (Negative); Blood Urine Neg (Negative); Glucose Urine UA Norm (Normal); Ketones Urine Negative (Negative); Leukocyte Esterase Urine 2+ (Negative); Mucus Urine 1+ /hpf; Nitrate Urine Negative (Negative); Protein Urine Neg (Negative); RBC Urine 0-4 /hpf (0-2); Specific Gravity, Urine 1.015 (1.005-1.030); Urine Appearance Clear (CLEAR); Urine Color Yellow (Yellow); Urobilinogen Urine Norm (Negative); WBC Urine 25-40 /hpf (0-5); pH Urine 5 (5-7)
[2023-12-23 15:27] VITALS: BP 110/70; PULSE 78
[2023-12-23 15:42] VITALS: BP 109/69; PULSE 71
== END 2023-12-23 16:00 | disposition home or self-care (01) ==
LOC: OPOB 14:40 → OBGYN 14:41
PROVIDERS: PCP Family Medicine Adult Medicine; Visit Provider Family Medicine
DX: O26.899 Other specified pregnancy related conditions, unspecified trimester (principal); Z3A.00 Weeks of gestation of pregnancy not specified; R10.9 Unspecified abdominal pain; M54.9 Dorsalgia, unspecified
CPT/HCPCS: 59025; 81001; 87086; 99211

== ENCOUNTER 2024-01-07 16:56 | Outpatient (CLI) | payer BC, SELFPAY ==
[2024-01-07] VITALS (7 sets, daily range): BP systolic 107–124; BP diastolic 73–86; PULSE 82–92; RESP 17; BMI 29.7
[2024-01-07 17:28] LABS: Bilirubin Urine Neg (Negative); Blood Urine Neg (Negative); Glucose Urine UA Norm (Normal); Ketones Urine 1+ (Negative); Leukocyte Esterase Urine 1+ (Negative); Nitrate Urine Negative (Negative); Protein Urine 1+ (Negative); Urine Appearance Clear (CLEAR); Urine Color Yellow (Yellow); Urobilinogen Urine 1 mg/dL (Negative); pH Urine 5 (5-7)
[2024-01-07 17:32] LABS: Add Urine Culture? Yes; Bacteria Urine 2+ /hpf; Mucus Urine 1+ /hpf; Squamous Epithelial Cell Urine 0-4 /hpf (0-5)
== END 2024-01-07 18:25 | disposition home or self-care (01) ==
LOC: OPOB 16:58 → OBGYN 16:59
PROVIDERS: PCP Family Medicine Adult Medicine; Visit Provider Family Medicine
DX: O16.9 Unspecified maternal hypertension, unspecified trimester (principal); Z3A.00 Weeks of gestation of pregnancy not specified; R10.9 Unspecified abdominal pain
CPT/HCPCS: 59025; 81001; 87086; 99211

== ENCOUNTER 2024-01-28 04:05 | Inpatient (IN) | payer BC, MEDICAID, SELFPAY ==
[2024-01-28] VITALS (59 sets, daily range): BP systolic 100–150; BP diastolic 50–91; PULSE 40–72; TEMP 35.7–36.7; O2SAT 100; BMI 30.7
[2024-01-28 01:44] LABS: Actim Prom Positive
[2024-01-28 04:49] LABS: Basophils % 0.5 %; Eosinophils # 0.1 10^3/uL (0.0-0.8); Eosinophils % 0.7 %; Hematocrit 34.9 % (36-47); Lymphocytes # 2.3 10^3/uL (0.8-4.8); Lymphocytes % 26.8 %; Mean Corpuscular Hemoglobin 29.6 pg (27-33); Mean Corpuscular Volume 89.7 fl (85-98); Mean Platelet Volume 13.4 fL (7.4-10.4); Monocytes # 0.5 10^3/uL (0.2-0.9); Monocytes % 6.4 %; Neutrophils # 5.49 10^3/uL (1.8-7.7); Neutrophils % 64.9 %; Nucleated Red Blood Cells % 0 %; Platelet Count 189 10^3/cmm (157-399); Red Blood Count 3.89 10^6/uL (3.85-5.65); Red Cell Distribution Width 12.9 % (12.1-15.1); White Blood Count 8.46 10^3/uL (3.29-11.43)
[2024-01-28] MEDS: ampicillin 2,000 MG in sodium chloride 0.9% (plus) 50 ML 100 MG IV (06:01)
[2024-01-28] MEDS: dextrose 5%-lactated ringers 1,000 ML 125 ML IV ×2 (06:01→16:08)
[2024-01-28] MEDS: miSOPROStol 100 mcg tablet 25 MCG VAGINAL (06:02)
[2024-01-28] MEDS: ondansetron 2 mg/ML SDV 2 mL 4 MG IVP (08:48)
[2024-01-28] MEDS: ampicillin 1,000 MG in sodium chloride 0.9% (plus) 50 ML 100 MG IV ×4 (10:03→22:54)
--- NOTE | 2024-01-28 10:03 | P.ANESASSM_ITS ---
Pre-Anesthetic Assessment Height/Weight: Height 1.68 m Weight 86.183 kg Temp Pulse BP O2 Del Method 97.2 F L 47 L 130/84 Room Air 01/28/24 09:44 01/28/24 09:44 01/28/24 09:44 01/28/24 04:48 Epidural Familial anesthetic complications: None Was Beta Krys taken within 24 hours: N/A Was Clonidine taken within 24 hours: N/A Last intake: 01/26 solid food Social No alcohol and No tobacco Exam alert, oriented x 3, clear to auscultation bilaterally and regular rate & rhythm Airway Submandibular: within normal limits Cervical ROM: within normal limits Mallampati: Class III Dentition: full History/ROS No significant history except as noted and No significant complaints Pulmonary Exertional Dyspnea CV/HEM Palpitations None reported Hepatic None reported Elevated liver enzymes at times GI Gastroesophageal Reflux Disease IBS Metabolic None reported Musc/skel None reported Upper back pain Neuropsych Anxiety, Depression, Headache, Neuropathy and Seizure (A few years d/t anxiety) Anesthetic Plan ASA status: 3 Anesthesia: Anesthesia Evaluation, General and Regional (specify below) (Epidural) Risk of > 500 ml blood loss (7ml/kg in children): Yes, adequate IV access and fluids planned Medications/Allergies Home Medications Medication Instructions Recorded Confirmed Last Taken Type No Known Home Medications 01/28/24 01/28/24 Unknown History Allergies Allergy/AdvReac Type Severity Reaction Status Date / Time No Known Allergies Allergy Verified 01/28/24 05:31 Current Medications Generic Name Dose Route Start Last Admin Trade Name Freq PRN Reason Stop Dose Admin Dextrose/Lactated Ringer's 1,000 mls @ 125 mls/hr 01/28/24 03:15 01/28/24 06:01 Dextrose 5%-Lactated Ringers IV 125 mls/hr .Q8H CORINE Administration Ondansetron HCl 4 mg 01/28/24 03:09 01/28/24 08:48 Ondansetron 2 Mg/Ml Sdv 2 Ml IVP 4 mg Q4H PRN Administration NAUSEA AND VOMITING PFSH Anesthesia Medical History ADD (attention deficit disorder) Anxiety Bipolar 2 disorder Depression Dysmenorrhea History of ADHD no support for this diangosis History of chlamydia IBS (irritable bowel syndrome) IBS (irritable bowel syndrome) Lipoma Low back pain Family History Father Diabetes Hypercholesteremia Denies family history of Colon cancer Ovarian cancer Heart disease Breast cancer Hypertension Uterine cancer Thyroid disease Stroke Social History Smoking and tobacco/nicotine status: never used tobacco/nicotine Substance/Drug Use: current Substance/Drug use frequency: few times a month Female Reproductive History : 2 Data Anesthesia 01/28/24 03:56 Short CBC 01/28/24 Range/Units 03:56 WBC 8.46 (3.29-11.43) 10^3/uL Hgb 11.50 (11.27-16.99) g/dL Hct 34.9 L (36-47) % MCV 89.7 (85-98) fl Plt Count 189 (157-399) 10^3/cmm Neut % (Auto) 64.9 % Neut # (Auto) 5.49 (1.8-7.7) 10^3/uL Blood Bank 01/28/24 03:56 Blood Type O Positive Rho(D) Type Rh positive Antibody Screen Negative Cardiac Studies: 2 No Data to Display
[2024-01-28] MEDS: oxytocin 30 UNIT/500 ML BAG IV (13:31)
[2024-01-28] MEDS: ROPivacaine syringe 100 MG/50 ML SYRINGE 10 MG EPIDURAL ×2 (13:51→19:19)
[2024-01-28] MEDS: lactated ringers 1,000 ML 999 ML IV (13:52)
--- NOTE | 2024-01-28 14:30 | ANES.PROC ---
Anesthesia Procedures Procedure/Date: 01/28/24 Epidural: Time Out Performed: Yes Consents Signed: Procedure Consent and NPO Consent Consent: requested by attending/covering physician, from patient, risks and benefits reviewed and patient agrees to proceed Lumbar Level: L3-L4 Epidural position: sitting Epidural procedure: sterile prep of area (betadine), 1% lidocaine to numb the area (3 mLs), neg for paresthesia, test dose given, 1.5% xylocaine 1:200k epi (3 mL/2 mL), 0.2% Ropivacaine bolus ml (5 mLs), placed PCEA, no systemic response, sterile dressing applied, L.U.D. no apparent complications and 0.2% Ropiavacaine @ mls/hr (10 mLs/hr) Additional Comments: FLOR 5cm, catheter threaded to 10cm. 100mcg fentanyl given via epidural
[2024-01-28] MEDS: hyDROXYzine 25 mg Capsule 50 MG PO (15:24)
[2024-01-28] MEDS: calcium carbonate 500 mg Chew Tablet 1000 MG PO (22:54)
[2024-01-29] VITALS (37 sets, daily range): BP systolic 93–180; BP diastolic 50–100; PULSE 43–76; RESP 16–18; TEMP 36.3–36.7; O2SAT 97
[2024-01-29] MEDS: ROPivacaine syringe 100 MG/50 ML SYRINGE 10 MG EPIDURAL ×2 (00:05→04:54)
[2024-01-29] MEDS: dextrose 5%-lactated ringers 1,000 ML 125 ML IV ×2 (00:09→08:27)
[2024-01-29] MEDS: ampicillin 1,000 MG in sodium chloride 0.9% (plus) 50 ML 100 MG IV ×2 (02:04→07:13)
[2024-01-29] MEDS: ROPivacaine syringe 100 MG/50 ML SYRINGE 13 MG EPIDURAL (08:20)
--- NOTE | 2024-01-29 08:21 | PM.MISC ---
Miscellaneous Note Purpose of Documentation: pain Note: Patient having painful contractions again, bolused w/ bupivicaine 0.25% 10 cc epidural with no appreciable effect. Offered patient replacement of epidural. Declined intervention at this time. Increased rate from 10 ml/hr to 13 ml/hr and encouraged continued bolused
[2024-01-29] MEDS: hyDROXYzine 25 mg Capsule 50 MG PO (08:28)
[2024-01-29] MEDS: miSOPROStol 200 mcg Tablet 800 MCG PR (10:04)
--- NOTE | 2024-01-29 10:05 | P.PCNOB_ITS ---
Delivery Note: Date of delivery: January 29, 2024 Delivering Physician: Lesa Garcia MD Estimated blood loss (mL): 250 Findings: Patient had routine care at [facility] labs: Blood type O+ antibody negative, hepatitis B nonreactive, hepatitis C nonreactive, HIV nonreactive, rubella nonimmune, GC chlamydia negative, RPR nonreactive, UDS negative, she passed her glucose tolerance test. She was GBS positive. Pre-Delivery Course: This is a 23-year-old G2, P0 at 40 weeks 0 days gestation who presented to labor and delivery with spontaneous rupture of membranes around 2330 on 01/26. The patient was GBS positive and was started on ampicillin protocol. She received 6 doses of ampicillin prior to delivery. She was not chriss and her cervix was not very favorable so she was given a dose of Cytotec. She was then started on high-dose Pitocin. She did receive received an epidural for pain management. She had a very finicky uterus with periods of very frequent small contractions that prevented us from going up on the Pitocin. When she was 5 cm dilated she had a palpable forebag that was then artificially ruptured with clear fluid. At 1 point the Pitocin was discontinued and her contractions became more consistently every 1 to 2 minutes and seem to be stronger this persisted for many hours and she made some cervical change up to 7 cm. She then just stopped chriss. I was pretty sure we would need to proceed with section due to her dysfunctional uterine contractions but we give it 1 more try with restarting the Pitocin and the next thing you know she was complete and ready to push. She had a normal spontaneous vaginal delivery of a viable female weight 3300 g, 7 pounds 4 ounces, Apgars 9 and 9 over an intact perineum. The was suctioned at delivery and placed on the mother's chest. The cord was clamped and cut. The placenta was delivered grossly intact and normal to inspection. There was a first-degree vaginal laceration that was sutured using 3-0 chromic. Mother and infant were doing well after delivery History History History 1 Term 0 0 Miscarriages/Ectopic 1 Living Children 0 A&P Assessment and plan (1) (normal spontaneous vaginal delivery): Coding Level of Care Code Acute Code for Chg Fwd Diagnoses (normal spontaneous vaginal delivery) O80
[2024-01-29] MEDS: acetaminophen 325 mg Tablet 650 MG PO (11:53)
[2024-01-29] MEDS: benzocaine-menthol 78 gm Canister 1 SPRAY TOPICAL (11:54)
[2024-01-29] MEDS: lanolin oint 7 gm 1 APPLIC TOPICAL (11:54)
[2024-01-29] MEDS: ibuprofen 800 mg tablet PO ×2 (14:57→21:33)
[2024-01-29] MEDS: docusate sodium 100 mg Capsule PO (21:33)
[2024-01-30 01:17] LABS: Hematocrit 27.6 % (36-47); Mean Corpuscular Hemoglobin 29.4 pg (27-33); Mean Platelet Volume 12.6 fL (7.4-10.4); Platelet Count 128 10^3/cmm (157-399); White Blood Count 9.45 10^3/uL (3.29-11.43)
[2024-01-30] MEDS: acetaminophen 325 mg Tablet 650 MG PO (02:43)
[2024-01-30 04:00] VITALS: BP 118/74; PULSE 62; RESP 18; TEMP 36.6; TEMP 36.7
--- NOTE | 2024-01-30 07:45 | PC.NURSE ---
This RN, IBCLC educated patient on engorgement that may happen after delivery even if she decides to not breastfeed, care of breasts discussed, signs and symptoms of mastitis provided
--- NOTE | 2024-01-30 08:00 | ANE.PACU2 ---
Inpatient post-anesthesia follow up: Airway intact: Yes Vital signs: Temperature 97.5 F Pulse Rate 73 Respiratory Rate 16 Blood Pressure 128/86 Pulse Oximetry 97 Oxygen Delivery Me thod Room Air Oxygen Flow Rate Fraction of Inspir ed Oxygen Hydration adequate: Yes Nausea and vomiting: No Pain level: 1 Mental status: Baseline Epidural Start/End: Epidural Start Date: 01/28/24 Epidural Start Time: 14:05 Epidural End Date: 01/29/24 Epidural End Time: 11:15
[2024-01-30] MEDS: docusate sodium 100 mg Capsule PO (09:00)
[2024-01-30] MEDS: prenatal vitamin Capsule 1 CAP PO (09:00)
[2024-01-30] MEDS: ibuprofen 800 mg tablet PO ×2 (09:00→14:21)
[2024-01-30 10:20] VITALS: BP 105/57; PULSE 60; RESP 16; TEMP 36.6
--- NOTE | 2024-01-30 10:59 | PM.DCS ---
Discharge Providers Date of Admission: 01/28/24 04:05 Date of Discharge: January 30, 2024 Attending Provider at Admission: Lesa Garcia MD Attending Provider at Discharge: Lesa Garcia MD Primary Care Provider: Everette Han MD Diagnoses at Discharge Discharge Diagnosis (1) (normal spontaneous vaginal delivery): Status: Acute Reason for Visit Reason for Visit: possible ROM and contractions Hospital Course Hospital Course This is a 23-year-old G1 now P1 who had a normal spontaneous vaginal delivery of a viable female . Mother was doing well after delivery. She was ambulating, tolerating a regular diet, had decreased vaginal bleeding and was comfortable with discharge home. Physical Exam Narrative: Alert and oriented, resting in bed, heart regular rate and rhythm, lungs clear to auscultation bilaterally, abdomen is soft and fundus is firm, extremities have 1+ edema but no calf tenderness. Urinary Catheter Management: [place]: Cath Placed During This Visit: yes Reason for Continuing Indwelling Catheter: Required Immobilization for Trauma or Surgery or Anesthesia Urinary Catheter Date of Insertion: 01/28/24 Urinary Catheter Time of Insertion: 01:00 Discharge Data Studies Completed and Pending Laboratory Results WBC 9.45 10^3/uL (3.29-11.43) 01/30/24 01:10 RBC 3.10 10^6/uL (3.85-5.65) L 01/30/24 01:10 Hgb 9.10 g/dL (11.27-16.99) L 01/30/24 01:10 Hct 27.6 % (36-47) L 01/30/24 01:10 MCV 89.0 fl (85-98) 01/30/24 01:10 MCH 29.4 pg (27-33) 01/30/24 01:10 MCHC 33.0 g/dL (30-55) 01/30/24 01:10 RDW 13.0 % (12.1-15.1) 01/30/24 01:10 Plt Count 128 10^3/cmm (157-399) L 01/30/24 01:10 MPV 12.6 fL (7.4-10.4) H 01/30/24 01:10 Neut % (Auto) 64.9 % 01/28/24 03:56 Lymph % (Auto) 26.8 % 01/28/24 03:56 [place] % (Auto) 6.4 % 01/28/24 03:56 Eos % (Auto) 0.7 % 01/28/24 03:56 Baso % (Auto) 0.5 % 01/28/24 03:56 Neut # (Auto) 5.49 10^3/uL (1.8-7.7) 01/28/24 03:56 Lymph # (Auto) 2.3 10^3/uL (0.8-4.8) 01/28/24 03:56 [place] # (Auto) 0.5 10^3/uL (0.2-0.9) 01/28/24 03:56 Eos # (Auto) 0.1 10^3/uL (0.0-0.8) 01/28/24 03:56 Baso # (Auto) 0.0 10^3/uL (0.0-0.1) 01/28/24 03:56 Nucleated RBC % (auto) 0 % 01/28/24 03:56 Nucleated RBCs # 0.0 /100WBC 01/28/24 03:56 Insulin-like GF I Positive 01/28/24 01:26 Blood Type O Positive 01/28/24 03:56 Rho(D) Type Rh positive 01/28/24 03:56 Antibody Screen Negative 01/28/24 03:56 Vitals Last Vital Signs Temp 98.0 F 01/30/24 04:00 Pulse 62 01/30/24 04:00 Resp 18 01/30/24 04:00 BP 118/74 01/30/24 04:00 Pulse Ox 97 01/29/24 12:45 O2 Del Method Room Air 01/30/24 04:00 Discharge Plan Discharge Patient Disposition: Home Condition: Stable Prescriptions: No Action No Known Home Medications Discharge Orders: Discharge Order (Routine); Ordered 01/30/24 Ordered By: Lesa Garcia Referrals: Lesa Garcia MD [Physician] - 1 month Discharge Diet: Usual diet Discharge Activity: Limit activity as instructed Patient Instructions: Depression (DC), Opioid Safety (DC), Preeclampsia and Eclampsia After Delivery (GEN), Hemorrhage (DC), OB Discharge Report, OB Food/Drug Interaction Guide, Opioid Safety, OB Home Care, OB Vaginal Deliveries, Abnormal Bleeding Discharge Attestations Time Spent in Discharge Care*: less than 30 min Quality Metrics Clinical Quality Measures [ No reported AMI, CVA or VTE this stay] Coding Level of Care Code Acute Code for Chg Fwd Diagnoses (normal spontaneous vaginal delivery) O80
[2024-01-30] MEDS: diphenhydrAMINE 50 mg Capsule PO (14:21)
[2024-01-30 14:30] VITALS: BP 128/86; PULSE 73; RESP 16; TEMP 36.4
[2024-01-30] MEDS: measles,mumps,rubella pf Vial (w/diluent) 0.5 ML SUBCUT (15:14)
== END 2024-01-30 15:25 | disposition home or self-care (01) | DRG 807 ==
LOC: OPOB 10:29 → OBGYN 10:29
PROVIDERS: Admitting Provider Family Medicine; PCP Family Medicine Adult Medicine; Visit Provider Family Medicine
DX: O48.0 Post-term pregnancy (principal); Z37.0 Single live birth; Z3A.40 40 weeks gestation of pregnancy; O99.824 Streptococcus B carrier state complicating childbirth; O70.0 First degree perineal laceration during delivery
CPT/HCPCS: 36415; 51702; 59025; 59409; 84112; 85025; 85027; 86850; 86900; 90707; 96372; 96374; 99211; J0290; J2405; J2590; J2795; J3010; J3490; J7120; J7121; Q0163

== ENCOUNTER 2024-03-06 20:44 | Emergency (ER) | payer BC, MEDICAID, SELFPAY ==
[2024-03-06 20:49] VITALS: BP 124/86; PULSE 80; RESP 16; TEMP 36.6; O2SAT 99
[2024-03-06 21:48] LABS: Basophils # 0.1 10^3/uL (0.0-0.1); Basophils % 0.7 %; Eosinophils # 0.1 10^3/uL (0.0-0.8); Eosinophils % 1.3 %; Hematocrit 36.1 % (36-47); Lymphocytes # 2.4 10^3/uL (0.8-4.8); Lymphocytes % 35.4 %; Mean Corpuscular HGB Conc 32.7 g/dL (30-55); Mean Corpuscular Hemoglobin 28.1 pg (27-33); Mean Platelet Volume 10.9 fL (7.4-10.4); Monocytes # 0.4 10^3/uL (0.2-0.9); Monocytes % 5.4 %; Neutrophils # 3.89 10^3/uL (1.8-7.7); Neutrophils % 56.8 %; Nucleated Red Blood Cells % 0 %; Platelet Count 230 10^3/cmm (157-399); Red Cell Distribution Width 13.6 % (12.1-15.1); White Blood Count 6.86 10^3/uL (3.29-11.43)
[2024-03-06 23:10] VITALS: BP 107/68; PULSE 76; RESP 14; O2SAT 99
--- NOTE | 2024-03-06 23:17 | USR_ITS ---
PROCEDURE INFORMATION: Exam: US Pelvis, Transvaginal Exam date and time: 03/06/2024 11:43 PM Age: 23 years old Clinical indication: Other: Vaginal bleeding post- 01/29/2024; Patient HX: Post- bleeding TECHNIQUE: Imaging protocol: Real-time transvaginal pelvic ultrasound with image documentation. Transvaginal imaging was used for better evaluation of the endometrium, adnexa, and/or cervix. COMPARISON: 1. CT abdomen pelvis w con* [id number] 11/08/2022 1:47 PM 2. US OB >= 14 weeks fetus [id number] 09/12/2023 11:03 AM FINDINGS: Uterus: Uterus measures 8.37 cm x 5.86 cm x 5.17 cm. Endometrium mildly heterogeneous, measures up to 2.0 cm. No evidence of retained products of conception or discrete uterine mass. Right ovary/adnexa: Normal. No evidence of torsion. Normal vascular flow. Right ovary measures 3.1 cm x 3.3 cm x 1.9 cm. Right ovarian volume is 10.3 mL. Left ovary/adnexa: Normal. No evidence of torsion. Normal vascular flow. Left ovary measures 4.2 cm x 4.3 cm x 1.9 cm. Left ovarian volume is 17.4 mL. Intraperitoneal space: Small amount of free fluid. US/US transvaginal [id number] IMPRESSION: 1. Normal appearance to the uterus, with endometrial stripe measuring up to 2 cm. 2. No retained products of conception or obvious uterine mass. 3. Normal ovaries. 4. Small amount of free fluid.
--- NOTE | 2024-03-06 23:31 | W.ED.FEMALGU ---
HPI - Female Genitourinary General: Chief complaint: Vaginal Bleeding Stated complaint: 5wk post increased bleeding Time Seen by Provider: 03/06/24 22:25 Source: patient Mode of arrival: ambulatory Limitations: no limitations History of Present Illness: Patient is a 23-year-old female approximately 5 weeks here for concerns of vaginal bleeding. Patient states she shortly had vaginal bleeding following her vaginal delivery as expected but this did eventually slow down/stop. She states several days ago she began bleeding again and was concerned as she was passing some thick tissue like material and was concerned this could be a portion of her placenta. She states earlier today she soaked 9 pads in 9 hours. She states upon arrival to the ED the bleeding has significantly improved. She is not having any pain. She states she was seen by her PCP Dr. Garcia this morning who told her bleeding could be secondary to a resuming menstrual cycle. Patient is not breast-feeding. She states she began having the heavy bleeding following her appointment with Dr. Garcia thus prompting her ED visit. MD elicited complaint: vaginal bleeding Pertinent past history: other (5 wks post-) Onset (ago): day(s) Severity: moderate Vaginal discharge: none Vaginal bleeding: heavy (now improved upon arrival) Exacerbating factors: none Relieving factors: none Associated symptoms: Reports no associated symptoms; Deny abdominal pain Treatment prior to arrival: none Patient : No Date of Last Menstrual Period: 04/30/23 Review of Systems Const: Denies: fever(s) GI: Denies: abdominal pain : Reports: vaginal bleeding; Denies: flank pain, dysuria or pelvic pain Neuro: Denies: dizziness PFSH ED PFSH: Medical History History of chlamydia IBS (irritable bowel syndrome) Lipoma History of ADHD no support for this diangosis Bipolar 2 disorder Low back pain Dysmenorrhea Depression ADD (attention deficit disorder) Anxiety IBS (irritable bowel syndrome) Family History Father Diabetes Hypercholesteremia Denies family history of Colon cancer Ovarian cancer Heart disease Breast cancer Hypertension Uterine cancer Thyroid disease Stroke Social History Smoking and tobacco/nicotine status: never used tobacco/nicotine Substance/Drug Use: current Substance/Drug use frequency: few times a month Female Reproductive History: Date of last menstrual period: 04/30/23 Physical Exam Const: COMMON NORMALS: no acute distress, average body habitus, patient oriented x3, no limitations, healthy appearing, alert and well nourished Cardio: COMMON NORMALS: regular rate and regular rhythm RATE: regular rate RHYTHM: regular rhythm GI: COMMON NORMALS: Normal to inspection, nondistended, normoactive bowel sounds present, Soft to palpation and non-tender PALPATION: Yes Soft to palpation : OTHER: pelvic deferred-states Dr. Garcia performed pelvic exam earlier this morning Neuro: COMMON NORMALS: patient oriented x3 SENSORIUM/ORIENTATION: Yes alert Course Vital Signs: Vital signs: Vital Signs Temperature 97.8 F 03/06/24 20:49 Pulse Rate 76 03/06/24 23:10 Respiratory Rate 14 03/06/24 23:10 Blood Pressure 107/68 03/06/24 23:10 Pulse Oximetry 99 03/06/24 23:10 Oxygen Delivery Me thod Room Air 03/06/24 23:10 MDM - Female Medical Decision Making Patient appears in no acute distress. Her CBC is normal. Her white count and H&H are normal. Her vital signs are stable. Ultrasound prelim report showing no retained products of conception. She is stable for discharge with follow-up with Dr. Garcia. Return to ED precautions given. Medical Records I reviewed the patient's medical records. Lab Data I reviewed the patient's lab results. 03/06/24 21:40 Laboratory Results WBC 6.86 10^3/uL (3.29-11.43) 03/06/24 21:40 RBC 4.20 10^6/uL (3.85-5.65) 03/06/24 21:40 Hgb 11.80 g/dL (11.27-16.99) 03/06/24 21:40 Hct 36.1 % (36-47) 03/06/24 21:40 MCV 86.0 fl (85-98) 03/06/24 21:40 MCH 28.1 pg (27-33) 03/06/24 21:40 MCHC 32.7 g/dL (30-55) 03/06/24 21:40 RDW 13.6 % (12.1-15.1) 03/06/24 21:40 Plt Count 230 10^3/cmm (157-399) 03/06/24 21:40 MPV 10.9 fL (7.4-10.4) H 03/06/24 21:40 Neut % (Auto) 56.8 % 03/06/24 21:40 Lymph % (Auto) 35.4 % 03/06/24 21:40 [place] % (Auto) 5.4 % 03/06/24 21:40 Eos % (Auto) 1.3 % 03/06/24 21:40 Baso % (Auto) 0.7 % 03/06/24 21:40 Neut # (Auto) 3.89 10^3/uL (1.8-7.7) 03/06/24 21:40 Lymph # (Auto) 2.4 10^3/uL (0.8-4.8) 03/06/24 21:40 [place] # (Auto) 0.4 10^3/uL (0.2-0.9) 03/06/24 21:40 Eos # (Auto) 0.1 10^3/uL (0.0-0.8) 03/06/24 21:40 Baso # (Auto) 0.1 10^3/uL (0.0-0.1) 03/06/24 21:40 Nucleated RBC % (auto) 0 % 03/06/24 21:40 Nucleated RBCs # 0.0 /100WBC 03/06/24 21:40 XR interpretation done by ED provider, pending radiology final review Discharge Plan Discharge Patient Disposition: Home Clinical Impression: bleeding Condition: Stable Prescriptions: No Action No Known Home Medications Discharge Orders: Discharge ED (Routine); Ordered 03/07/24 Ordered By: Radha Castillo Referrals: Lesa Garcia MD [Primary Care Provider] - Activity Restrictions/Additional Instructions: As we discussed to continue following up with your PCP/OB provider Dr. Garcia as needed. You may return to the emergency department for worsening/sustained heavy bleeding, lightheadedness/dizziness, severe pain, or any other concerns you may have. Coding Level of Care Code ED Process Design Engineer for Dannielle Amaya
[2024-03-07 01:00] VITALS: PULSE 81; O2SAT 98
== END 2024-03-07 01:02 | disposition home or self-care (01) ==
PROVIDERS: Emergency Medicine; Emergency Provider Physician Assistant; PCP Family Medicine
DX: O72.1 Other immediate postpartum hemorrhage (principal)
CPT/HCPCS: 36415; 76830; 85025; 99284

== ENCOUNTER 2024-09-16 01:52 | Emergency (ER) | payer BC, MEDICAID, SELFPAY ==
[2024-09-16 01:53] VITALS: BP 120/80; PULSE 84; RESP 20; TEMP 36.3; O2SAT 100; BMI 29.8
[2024-09-16 02:19] LABS: Basophils # 0.1 10^3/uL (0.0-0.1); Basophils % 0.5 %; Eosinophils # 0.1 10^3/uL (0.0-0.8); Eosinophils % 0.7 %; Hematocrit 41.6 % (36-47); Lymphocytes # 0.5 10^3/uL (0.8-4.8); Lymphocytes % 4.9 %; Mean Corpuscular HGB Conc 31.7 g/dL (30-55); Mean Corpuscular Hemoglobin 26.2 pg (27-33); Mean Corpuscular Volume 82.7 fl (85-98); Mean Platelet Volume 11.1 fL (7.4-10.4); Monocytes # 0.5 10^3/uL (0.2-0.9); Monocytes % 4.7 %; Neutrophils # 8.65 10^3/uL (1.8-7.7); Nucleated Red Blood Cells % 0 %; Platelet Count 214 10^3/cmm (157-399); Red Blood Count 5.03 10^6/uL (3.85-5.65); Red Cell Distribution Width 15.1 % (12.1-15.1); White Blood Count 9.73 10^3/uL (3.29-11.43)
[2024-09-16 02:24] LABS: HCG, Serum Qual Negative (Negative)
[2024-09-16] MEDS: haloperidol inj 5 mg/mL INJ 1 mL IVP (02:28)
[2024-09-16] MEDS: fentaNYL 50 mcg/mL INJ 2mL IVP (02:28)
[2024-09-16] MEDS: sodium chloride 0.9% 1,000 ML 999 ML IV (02:28)
[2024-09-16 02:33] LABS: Alanine Aminotransferase 36 U/L (0-33); Albumin Level 4.5 g/dL (3.5-5.2); Alkaline Phosphatase 109 U/L (35-105); Aspartate Amino Transferase 40 U/L (0-32); Blood Urea Nitrogen 13 mg/dL (6-20); C Reactive Protein 4.2 mg/L (0.0-4.9); Calcium 8.9 mg/dL (8.5-10.5); Carbon Dioxide 24 mmol/L (22-29); Chloride 102 mmol/L (98-107); Globulin 2.6 g/dL (1.3-4.6); Glomerular Filtration Rate 149.1 mL/min (90-130); Glucose 143 mg/dL (65-115); Lipase 17 U/L (13-60); Osmolality Calculated 287 mOsm/kg (285-295); Sodium 137 mmol/L (136-145); Total Bilirubin 0.5 mg/dL (0.15-1.2); Total Protein 7.1 g/dL (6.6-8.7)
--- NOTE | 2024-09-16 02:45 | W.ED.NAVMDI ---
HPI - Nausea/Vomiting/Diarrhea General: Chief complaint: Nausea/Vomiting/Diarrhea Stated complaint: N/V Time Seen by Provider: 09/16/24 02:04 History of Present Illness: 24-year-old female presenting after she smoked marijuana. She developed abdominal pain, cramping, and vomiting. She is evidently had an episode of diarrhea as well. She had multiple episodes of vomiting at home. No fever. Related Data Previous Rx's Medication Instructions Recorded ondansetron 4 mg disintegrating 4 mg PO Q6H PRN nausea and 09/16/24 tablet vomiting #14 tabs Allergies Allergy/AdvReac Type Severity Reaction Status Date / Time No Known Allergies Allergy Verified 09/16/24 02:06 [facility] ED PFS: Medical History History of chlamydia IBS (irritable bowel syndrome) Lipoma History of ADHD no support for this diangosis Bipolar 2 disorder Low back pain Dysmenorrhea Depression ADD (attention deficit disorder) Anxiety IBS (irritable bowel syndrome) Family History Father Diabetes Hypercholesteremia Denies family history of Colon cancer Ovarian cancer Heart disease Breast cancer Hypertension Uterine cancer Thyroid disease Stroke Social History Smoking and tobacco/nicotine status: never used tobacco/nicotine Substance/Drug Use: current Substance/Drug use frequency: few times a month Female Reproductive History: Date of last menstrual period: 09/03/24 Physical Exam Const: COMMON NORMALS: no acute distress GENERAL APPEARANCE: cooperative; not ill appearing and not frail appearing HENMT: COMMON NORMALS: normocephalic, atraumatic and Normal external nose present HEAD & SCALP: normocephalic and atraumatic FACE & SINUS: normal facial exam and face symmetric NOSE: Normal external nose present Eye: COMMON NORMALS: Equal, round and reactive pupils present and EOMs intact bilaterally PUPIL: Yes Equal, round and reactive pupils present Neck/C-Spine: GENERAL: Yes trachea midline Chest: CHEST: Yes Symmetrical chest wall rise Resp: COMMON NORMALS: normal respiratory effort, No retractions, No use of accessory muscles and clear to auscultation bilaterally AUSCULTATION: clear to auscultation bilaterally Cardio: COMMON NORMALS: regular rate and regular rhythm RATE: regular rate RHYTHM: regular rhythm GI: COMMON NORMALS: Normal to inspection, nondistended, normoactive bowel sounds present Extremity: COMMON NORMALS: no pedal edema Neuro: [place] COMA SCALE: document GCS findings [place]so coma scale eye opening: Spontaneous [place] coma scale verbal response: Orientated [place] coma scale motor response: Obey commands [place] coma scale total score: 15 SENSORY EXAM: Yes extremities (intact) Psych: COMMON NORMALS: speech normal SPEECH: Yes normal speech Skin: COMMON NORMALS: no rashes or lesions noted GENERAL SKIN EXAM: no rashes or lesions noted Course Vital Signs: Vital signs: Vital Signs Temperature 97.4 F L 09/16/24 01:53 Pulse Rate 84 09/16/24 01:53 Respiratory Rate 20 H 09/16/24 01:53 Blood Pressure 120/80 09/16/24 01:53 Pulse Oximetry 100 09/16/24 01:53 Oxygen Delivery Me thod Room Air 09/16/24 01:53 MDM - Nausea/Vomiting/Diarrhea Medical Decision Making Patient was given Haldol on arrival for nausea vomiting and anxiety. Has essentially resolved her symptoms. Laboratory is not remarkable. She is not . She remains improved. She will be discharged Lab Data 09/16/24 02:05 09/16/24 02:05 Laboratory Results WBC 9.73 10^3/uL (3.29-11.43) 09/16/24 02:05 RBC 5.03 10^6/uL (3.85-5.65) 09/16/24 02:05 Hgb 13.20 g/dL (11.27-16.99) 09/16/24 02:05 Hct 41.6 % (36-47) 09/16/24 02:05 MCV 82.7 fl (85-98) L 09/16/24 02:05 MCH 26.2 pg (27-33) L 09/16/24 02:05 MCHC 31.7 g/dL (30-55) 09/16/24 02:05 RDW 15.1 % (12.1-15.1) 09/16/24 02:05 Plt Count 214 10^3/cmm (157-399) 09/16/24 02:05 MPV 11.1 fL (7.4-10.4) H 09/16/24 02:05 Neut % (Auto) 89.0 % 09/16/24 02:05 Lymph % (Auto) 4.9 % 09/16/24 02:05 [place] % (Auto) 4.7 % 09/16/24 02:05 Eos % (Auto) 0.7 % 09/16/24 02:05 Baso % (Auto) 0.5 % 09/16/24 02:05 Neut # (Auto) 8.65 10^3/uL (1.8-7.7) H 09/16/24 02:05 Lymph # (Auto) 0.5 10^3/uL (0.8-4.8) L 09/16/24 02:05 [place] # (Auto) 0.5 10^3/uL (0.2-0.9) 09/16/24 02:05 Eos # (Auto) 0.1 10^3/uL (0.0-0.8) 09/16/24 02:05 Baso # (Auto) 0.1 10^3/uL (0.0-0.1) 09/16/24 02:05 Nucleated RBC % (auto) 0 % 09/16/24 02:05 Nucleated RBCs # 0.0 /100WBC 09/16/24 02:05 Sodium 137 mmol/L (136-145) 09/16/24 02:05 Potassium 4.0 mmol/L (3.5-5.1) 09/16/24 02:05 Chloride 102 mmol/L (98-107) 09/16/24 02:05 Carbon Dioxide 24 mmol/L (22-29) 09/16/24 02:05 Anion Gap 15.0 (5-19) 09/16/24 02:05 BUN 13 mg/dL (6-20) 09/16/24 02:05 Creatinine 0.5 mg/dL (0.5-0.9) 09/16/24 02:05 GFR Calculation 149.1 mL/min (90-130) H 09/16/24 02:05 Glucose 143 mg/dL (65-115) H 09/16/24 02:05 Calculated Osmolality 287 mOsm/kg (285-295) 09/16/24 02:05 Calcium 8.9 mg/dL (8.5-10.5) 09/16/24 02:05 Total Bilirubin 0.5 mg/dL (0.15-1.2) 09/16/24 02:05 AST 40 U/L (0-32) H 09/16/24 02:05 ALT 36 U/L (0-33) H 09/16/24 02:05 Alkaline Phosphatase 109 U/L (35-105) H 09/16/24 02:05 C-Reactive Protein 4.2 mg/L (0.0-4.9) 09/16/24 02:05 Total Protein 7.1 g/dL (6.6-8.7) 09/16/24 02:05 Albumin 4.5 g/dL (3.5-5.2) 09/16/24 02:05 Globulin 2.6 g/dL (1.3-4.6) 09/16/24 02:05 Lipase 17 U/L (13-60) 09/16/24 02:05 HCG, Qual Negative (Negative) 09/16/24 02:05 No radiology studies performed this visit Discharge Plan Discharge Patient Disposition: Home Clinical Impression: Cannabis 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 abuse Condition: Stable Prescriptions: New ondansetron 4 mg tablet,disintegrating 4 mg PO Q6H PRN (Reason: nausea and vomiting) Qty: 14 0RF Discharge Orders: Discharge ED (Routine); Ordered 09/16/24 Ordered By: Renato Gomez Referrals: Lesa Garcia MD [Primary Care Provider] - 1-3 days Patient Instructions: Acute Nausea and Vomiting (ED), Cyclic Vomiting Syndrome (ED), Opioid Safety, Pain Management Activity Restrictions/Additional Instructions: Follow a liquid diet for the next 12 to 24 hours. Take medication scheduled every 4 hours while awake for the next 24 hours to prevent vomiting. Avoid use of marijuana, as it can cause this reaction. Coding Level of Care Code ED Aircraft Servicer for Dannielle Amaya
[2024-09-16 03:52] VITALS: BP 120/83; PULSE 83; O2SAT 99
== END 2024-09-16 03:53 | disposition home or self-care (01) ==
PROVIDERS: Emergency Provider Emergency Medicine; PCP Family Medicine
DX: R11.2 Nausea with vomiting, unspecified (principal); F12.10 Cannabis abuse, uncomplicated
CPT/HCPCS: 80053; 83690; 84703; 85025; 86140; 96374; 96375; 99284; J1630; J3010; J7030

== ENCOUNTER 2025-04-03 11:07 | Emergency (ER) | payer BC, MEDICAID, SELFPAY ==
[2025-04-03 11:33] VITALS: BP 106/74; PULSE 80; RESP 17; TEMP 36.7; O2SAT 97; BMI 29.0
[2025-04-03 12:43] LABS: Basophils # 0.1 10^3/uL (0.0-0.1); Basophils % 1.1 %; Eosinophils # 0.1 10^3/uL (0.0-0.8); Eosinophils % 2.7 %; Hematocrit 32.4 % (36-47); Lymphocytes # 1.7 10^3/uL (0.8-4.8); Lymphocytes % 31.7 %; Mean Corpuscular HGB Conc 31.2 g/dL (30-55); Mean Corpuscular Hemoglobin 26.6 pg (27-33); Mean Corpuscular Volume 85.3 fl (85-98); Mean Platelet Volume 12.2 fL (7.4-10.4); Monocytes # 0.3 10^3/uL (0.2-0.9); Monocytes % 5.9 %; Neutrophils # 3.06 10^3/uL (1.8-7.7); Neutrophils % 58.4 %; Nucleated Red Blood Cells % 0 %; Platelet Count 233 10^3/cmm (157-399); Red Cell Distribution Width 13.5 % (12.1-15.1); White Blood Count 5.24 10^3/uL (3.29-11.43)
[2025-04-03 13:16] LABS: Alanine Aminotransferase 12 U/L (0-33); Albumin Level 4.4 g/dL (3.5-5.2); Alkaline Phosphatase 89 U/L (35-105); Anion Gap 15.7 (5-19); Aspartate Amino Transferase 13 U/L (0-32); Blood Urea Nitrogen 8 mg/dL (6-20); Calcium 9.3 mg/dL (8.5-10.5); Carbon Dioxide 23 mmol/L (22-29); Chloride 105 mmol/L (98-107); Creatinine Clr Calc Pharmacy 183.6761; Globulin 2.9 g/dL (1.3-4.6); Glomerular Filtration Rate 149.1 mL/min (90-130); Glucose 95 mg/dL (65-115); Osmolality Calculated 288 mOsm/kg (285-295); Potassium 3.7 mmol/L (3.5-5.1); Sodium 140 mmol/L (136-145); Total Bilirubin 0.4 mg/dL (0.15-1.2); Total Protein 7.3 g/dL (6.6-8.7)
--- NOTE | 2025-04-03 13:39 | USR_ITS ---
PROCEDURE INFORMATION: Exam: US , Limited and US , Transvaginal Exam date and time: 04/03/2025 2:05 PM Age: 24 years old Clinical indication: Screening exam; Routine US, uterus; Additional info: Vaginal bleeding 1 mo, , miscarriage 1 month ago, still bleeding, however hcg is 172. TECHNIQUE: Imaging protocol: Real-time ultrasound of the maternal uterus with image documentation. Transvaginal imaging was used for better evaluation of the fetus, adnexa, and/or cervix. Exam focused on the clinical indication. COMPARISON: US OB transvaginal [id number] 02/12/2025 12:06 PM FINDINGS: Gestation: See below discussion MATERNAL: Right ovary/adnexa: The right ovary contains a 3.1 cm hemorrhagic cyst and a 5 cm simple cyst. Left ovary/adnexa: The left ovary contains multiple cysts measuring up to 1.7 cm in diameter. Intraperitoneal space: Minimal free fluid is noted. Soft tissues: There is a collection of fluid and soft tissue debris within the endometrial cavity. In addition, there is a focus of exuberant vascularity involving the endometrial lining within the uterine fundus anteriorly. US/US OB lmt with transvaginal IMPRESSION: 1. Endometrial fluid and debris highly suspicious for retained products of conception 2. Focus of exuberant vascularity involving the endometrium suggesting AV fistula 3. Bilateral ovarian cysts
[2025-04-03 14:14] LABS: Bilirubin Urine Negative (Negative); Blood Urine 3+ (Negative); Glucose Urine UA Negative (Normal); Ketones Urine Negative (Negative); Leukocyte Esterase Urine Negative (Negative); Nitrate Urine Negative (Negative); Protein Urine Negative (Negative); Specific Gravity, Urine 1.022 (1.005-1.030); Urine Appearance Clear (CLEAR); Urine Color Yellow (Yellow); Urobilinogen Urine 0.2 mg/dL (Negative); pH Urine 5.5 (5-7)
[2025-04-03 14:17] LABS: Add Urine Microscopic? YES; Bacteria Urine None Seen /hpf; Hyaline Casts Urine 0-4 /lpf; RBC Urine 51-100 /hpf (0-2); Squamous Epithelial Cell Urine 0-5 /hpf (0-5); WBC Urine 0-5 /hpf (0-5)
[2025-04-03 14:26] LABS: Add Urine Culture? Yes
--- NOTE | 2025-04-03 14:30 | ED_ITS ---
HPI - Female Genitourinary 2 General: Chief complaint: Vaginal Bleeding Stated complaint: pain from previous miscarriage Time Seen by Provider: 04/03/25 13:38 History of Present Illness: Patient was in with complaint of vaginal bleeding for 6 weeks. She had a miscarriage around the 8 to 9-week dee 6 weeks ago. Still having bleeding. Increased activity makes it worse. States also cramping from time to time. When the cramping is worse the bleeding is worse. It has not slowed up or discontinued any point in time. Related Data Previous Rx's ?Medication ?Instructions ?Recorded ibuprofen 800 mg tablet 800 mg PO QID PRN pain #20 t abs 04/03/25 methylergonovine 0.2 mg tablet 0.2 mg PO QID 5 days #2 0 tabs 04/03/25 Allergies Allergy/AdvReac Type Severity Reaction Status Date / Time No Known Allergies Allergy Verified 09/25/24 08:48 Review of Systems 2 General: Reports: 10 or more systems reviewed and unremarkable except in HPI and below PFSH ED 2 PFSH: Medical History History of chlamydia IBS (irritable bowel syndrome) [place] History of ADHD no support for this diangosis Bipolar 2 disorder Low back pain Dysmenorrhea Depression ADD (attention deficit disorder) Anxiety IBS (irritable bowel syndrome) Family History Father Diabetes Hypercholesteremia Denies family history of Colon cancer Ovarian cancer Heart disease Breast cancer Hypertension Uterine cancer Thyroid disease Stroke Social History Smoking and tobacco/nicotine status: never used tobacco/nicotine Substance/Drug Use: current Substance/Drug use frequency: few times a month Physical Exam 2 Const: COMMON NORMALS: no acute distress, average body habitus, patient oriented x3, healthy appearing, alert and well nourished GENERAL APPEARANCE: well kempt and well developed HENMT: COMMON NORMALS: normocephalic, atraumatic, external ears normal and moist oral mucous membranes HEAD & SCALP: normocephalic and atraumatic E XTERNAL EAR: Yes external ears normal Eye: COMMON NORMALS: Equal, round and reactive pupils present, EOMs intact bilaterally and conjunctivae normal CONJUNCTIVA: Yes conjunctivae normal P UPIL: Yes Equal, round and reactive pupils present Neck/C-Spine: COMMON NORMALS: full ROM, no lymphadenopathy and supple Chest: CHEST: Yes Symmetrical chest wall rise and No Surgical scars present (Chest) Resp: COMMON NORMALS: normal respiratory effort, No retractions, No use of accessory muscles and clear to auscultation bilaterally AUSCULTATION: clear to auscultation bilaterally Cardio: COMMON NORMALS: regular rate, regular rhythm, S1 normal heart sound present, S2 normal heart sound present, No gallops present (Cardio), No clicks present (Cardio), No murmurs present (Cardio) and No rub (Cardio) RATE: r egular rate RHYTHM: regular rhythm HEART SOUNDS: S1 normal heart sound present, S2 normal heart sound present and no murmurs PERIPHERAL PULSES: o ther (Radial pulses 2+ and symmetric) GI: COMMON NORMALS: Soft to palpation, non-tender and no masses INSPECTION: No abdominal distension PALPATION: Yes Soft to palpation, No Guarding due to palpation present (GI) and No Rebound tenderness present : COMMON NORMALS: Yes no CVA tenderness BLADDER/KIDNEY EXAM: Yes no CVA tenderness Back/Pelvis: COMMON NORMALS: no CVA tenderness Extremity: COMMON NORMALS: normal to inspection, full ROM, capillary refill normal and no clubbing, cyanosis or edema Neuro: COMMON NORMALS: patient oriented x3 SENSORIUM/ORIENTATION: Yes alert Psych: APPEARANCE: Yes well kempt Skin: COMMON NORMALS: no rashes or lesions noted, no wounds, turgor normal and no jaundice GENERAL SKIN EXAM: no rashes or lesions noted and turgor normal Course 2 Reevaluation(s): Reevaluation #1: Spoke with Dr. Arellano [facility] regarding patient's condition. He reports he will look at the ultrasound and then come down evaluate the patient. Time: 14:30 Reevaluation #2: Patient seen by Dr. Arellano in the ER. He recommended Methergine 4 times daily. 5- day prescription written. He will follow-up with her. Time: 16:15 Vital Signs: Vital signs: Vital Signs Temperature 98.1 F 04/03/25 11:33 Pulse Rate 80 04/03/25 11:33 Respiratory Rate 17 04/03/25 11:33 Blood Pressure 106/74 04/03/25 11:33 Pulse Oximetry 97 04/03/25 11:33 Oxygen Delivery Me thod Room Air 04/03/25 11:33 MDM - Female Medical Decision Making Patient with abnormal /miscarriage hemorrhage. Slightly lower hemoglobin but not in range for transfusion. Ultrasound just showed increased vascularity of endometrium with free fluid. Suggesting for blood. Will hold off on D&C per RESOURCE ENGINEER at this time. Treatment as discussed in ED course. Medical Records I reviewed the patient's medical records. Lab Data I reviewed the patient's lab results. 04/03/25 12:29 04/03/25 12:29 Radiology Impressions Obstetrics Ultrasound 04/03/25 13:39 IMPRESSION: 1. Endometrial fluid and debris highly suspicious for retained products of conception 2. Focus of exuberant vascularity involving the endometrium suggesting AV fistula 3. Bilateral ovarian cysts Laboratory Results WBC 5.24 10^3/uL (3.29-11.43) 04/03/25 12:29 RBC 3.80 10^6/uL (3.85-5.65) L 04/03/25 12:29 Hgb 10.10 g/dL (11.27-16.99) L 04/03/25 12:29 Hct 32.4 % (36-47) L 04/03/25 12:29 MCV 85.3 fl (85-98) 04/03/25 12:29 MCH 26.6 pg (27-33) L 04/03/25 12:29 MCHC 31.2 g/dL (30-55) 04/03/25 12:29 RDW 13.5 % (12.1-15.1) 04/03/25 12:29 Plt Count 233 10^3/cmm (157-399) 04/03/25 12:29 MPV 12.2 fL (7.4-10.4) H 04/03/25 12:29 Neut % (Auto) 58.4 % 04/03/25 12: Lymph % (Auto) 31.7 % 04/03/25 12:29 [place] % (Auto) 5.9 % 04/03/25 12:29 Eos % (Auto) 2.7 % 04/03/25 12: Baso % (Auto) 1.1 % 04/03/25 12:29 Neut # (Auto) 3.06 10^3/uL (1.8-7.7) 04/03/25 12: Lymph # (Auto) 1.7 10^3/uL (0.8-4.8) 04/03/25 12: [place] # (Auto) 0.3 10^3/uL (0.2-0.9) 04/03/25 12: Eos # (Auto) 0.1 10^3/uL (0.0-0.8) 04/03/25 12: Baso # (Auto) 0.1 10^3/uL (0.0-0.1) 04/03/25 12: Nucleated RBC % (auto) 0 % 04/03/25 12: Nucleated RBCs # 0.0 /100WBC 04/03/25 12: Sodium 140 mmol/L (136-145) 04/03/25 12: Potassium 3.7 mmol/L (3.5-5.1) 04/03/25: Chloride 105 mmol/L (98-107) 04/03/25 12: Carbon Dioxide 23 mmol/L (22-29) 04/03/25 12: Anion Gap 15.7 (5-19) 04/03/25 12: BUN 8 mg/dL (6-20) 04/03/25 12: Creatinine 0.5 mg/dL (0.5-0.9) 04/03/25 12: GFR Calculation 149.1 mL/min (90-130) H 04/03/25 12: Glucose 95 mg/dL (65-115) 04/03/25 12: Calculated Osmolality 288 mOsm/kg (285-295) 04/03/25 12: Calcium 9.3 mg/dL (8.5-10.5) 04/03/25 12: Total Bilirubin 0.4 mg/dL (0.15-1.2) 04/03/25 12: AST 13 U/L (0-32) 04/03/25 12: ALT 12 U/L (0-33) 04/03/25 12: Alkaline Phosphatase 89 U/L (35-105) 04/03/25 12: Total Protein 7.3 g/dL (6.6-8.7) 04/03/25 12:29 Albumin 4.4 g/dL (3.5-5.2) 04/03/25 12: Globulin 2.9 g/dL (1.3-4.6) 04/03/25 12:29 Ser , Semi-Qnt 172.70 mIU/mL 04/03/25 12:29 Urine Color Yellow (Yellow) 04/03/25 14:05 Urine Appearance Clear (CLEAR) 04/03/25 14:05 Urine pH 5.5 (5-7) 04/03/25 14:05 Ur Specific [place] 1.022 (1.005-1.030) 04/03/25 14:05 Urine Protein Negative (Negative) 04/03/25 14:05 Urine Glucose (UA) Negative (Normal) 04/03/25 14:05 Urine Ketones Negative (Negative) 04/03/25 14:05 Urine Blood 3+ (Negative) A 04/03/25 14:05 Urine Nitrate Negative (Negative) 04/03/25 14:05 Urine Bilirubin Negative (Negative) 04/03/25 14:05 Urine Urobilinogen 0.2 mg/dL (Negative) 04/03/25 14:05 Ur Leukocyte Esterase Negative (Negative) 04/03/25 14:05 Urine RBC 51-100 /hpf (0-2) H 04/03/25 14:05 Urine WBC 0-5 /hpf (0-5) 04/03/25 14:05 Ur Squamous Epith Cells 0-5 /hpf (0-5) 04/03/25 14:05 Amorphous Sediment Not Reportable 04/03/25 14:05 Urine Bacteria None seen /hpf (NONE) 04/03/25 14:05 Hyaline Casts 0-4 /lpf H 04/03/25 14:05 All radiology interpretation(s) finalized by discharge Discharge Plan Discharge Patient Disposition: Home Clinical Impression: Vaginal bleeding, Miscarriage at 8 to 28 weeks gestation Condition: Stable Prescriptions: New methylergonovine 0.2 mg tablet 0.2 mg PO QID 5 Days Qty: 20 0RF ibuprofen 800 mg tablet 800 mg PO QID PRN (Reason: pain) Qty: 20 0RF Discharge Orders: Discharge ED (Routine); Ordered 04/03/25 Ordered By: Nilay Mcnamara Referrals: Lesa Garcia MD [Primary Care Provider, Family Practice] Patient Instructions: Abnormal Bleeding Print Language: Estonian Coding Level of Care Code ED Systems Software Specialist for Dannielle Amaya
== END 2025-04-03 16:20 | disposition home or self-care (01) ==
PROVIDERS: Family Medicine; Emergency Provider Emergency Medicine; PCP Family Medicine
DX: O03.1 Delayed or excessive hemorrhage following incomplete spontaneous abortion (principal)
CPT/HCPCS: 36415; 76815; 76817; 80053; 81001; 84702; 85025; 87086; 99284

== ENCOUNTER → 2025-04-07 13:33 | Outpatient (BNVA) | payer BC, MEDICAID, SELFPAY | PROVIDERS: PCP Family Medicine; Visit Provider Obstetrics & Gynecology | DX: O03.9 Complete or unspecified spontaneous abortion without complication (principal) | CPT/HCPCS: 84702 ==

== ENCOUNTER 2025-06-09 10:40 | Emergency (ER) | payer BC, MEDICAID, SELFPAY ==
[2025-06-09 10:52] VITALS: BP 115/39; PULSE 64; RESP 20; TEMP 36.7; O2SAT 100; BMI 27.4
--- NOTE | 2025-06-09 10:55 | ECG_ITS ---
[facility] 2025[facility]09 Pat Name: Adriane Anne Department: Room: Gender: Female Model Maker: : 2000 Requested By: Radha Castillo Order Number: [id number] Maguire MD: Inessa Morgan M.D. Measurements Intervals [place] Rate: 60 P: -1 CT: 136 QRS: 62 QRSD: 87 T: 53 QT: 451 QTc: 454 Interpretive Statements SINUS RHYTHM WITH OCCASIONAL SUPRAVENTRICULAR PREMATURE COMPLEXES MINIMAL ST DEPRESSION [0.025+ mV ST DEPRESSION] Compared to ECG 11/08/2022 10:36:50 ST (T wave) deviation now present Sinus bradycardia no longer present Electronically Signed On 06-09-2025 17:10:03 CDT by Inessa Morgan M.D. [email or web address]
--- OUTSIDE RECORDS SUMMARY | 2025-06-09 10:57 | XMS_ITS | Clinical Summary ---
Author Organization [facility] Address [address] [place] [address] Phone Care Team Providers Care Decating Machine Operator Name Role Phone Unavailable Primary Care Provider Unavailabl e Social History Tobacco Use Types Packs/Day Years Used Date Smoking Tobacco: Never Assessed Comments Unknown Sex and Gender Information Value Date Recorded Sex Assigned at Not on file Legal Sex Female 10:26 AM CDT Gender Identity Not on file Sexual Orientation Not on file Plan of Treatment Health Maintenance Due Date Last Done Comments HPV VACCINES (1 - 3-dose series) 2013 DTAP/TDAP/TD VACCINES (1 - Tdap) 2017 HEPATITIS B VACCINES (1 of 3 - 19+ 3-dose series) 04/20 CERVICAL CANCER SCREENING 2019 HPV/Cotest (21-29) 2019 PAP SMEAR 2019 INFLUENZA VACCINE (#1) 2025
--- OUTSIDE RECORDS SUMMARY | 2025-06-09 10:57 | XMS_ITS | Data Portability ---
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 She also reports she has been having similar symptoms to when she has been in the past and is concerned for . Urine test negative however this is early, will get qualitative blood test to verify. She has been sexually active and is not using control. Not available 10/31/2024 11:10:57 12/19/2024 12/19/2024 Patient here for a check-up today. She has been doing okay. She has been having her regular cycle. The buspirone was not helpful for her anxiety. She has taken amitriptyline in the past for her headaches and felt like it may have helped. Will try it again now. Not available 12/19/2024 10:08:41 02/12/2025 02/12/2025 She had a weird period in October and then had some bleeding again in January. She would like to see Dr. Vale for OB care. She is going to go fill her bladder and eat and then return for labs and ultrasound around noon. Not available 02/12/2025 10:22:46 Plan of Treatment Reminders Order Date Submit Date Provider Last Modified By Organization Details Last Modified Time Details Appointments None recorded. Lab CMP, serum or plasma 2024 025 [facility], [address], [address], [place], [address], 5 13:19:08 CBC 2024 025 [facility], [address] [place] [address] Ave, [address], [place], [address], 5 13:05:44 beta-HCG, quantitativ e, serum or plasma 2024 025 Mojix [facility], [address] [place] [address], [address], [place], [address], 5 07:58:56 test, urine 2024 025 [facility] ([facility]), [address] [place] [address], [phone], 5 12:23:26 test, urine 2023 024 [facility] ([facility]), [address] [place] [address], [address], 4 11:14:53 beta-HCG, qualitative , serum or plasma 2023 024 Mo[facility], [address] [place] [address], [address], [place], [address], 4 05:39:32 Referral None recorded. Procedures None recorded. Surgeries None recorded. Imaging US, obstetric, transvagina l - [id number] 2024 025 [facility] ([facility]), [address] [place] [address], [phone], 5 18:42:05 US, obstetric, 1st trimester 2024 025 [email or web address] 2 [facility] ([facility]), [address] [place], [place] [address]s, [place], [address], 14:22:05 Medication Orders ondansetron 4 mg disintegrat ing tablet 2024 [id number], [address], [address], [place], [address], 12:45:47 Proctocort 30 mg rectal suppository 2024 [id number], [address], [address], [place], [address], 12:07:11 Colace 100 mg capsule 2024 [id number], [address], [address], [place], [address], 12:07:17 hydroxyzine HCl 10 mg tablet 2024 025 [id number], [address], [address], [place], [address], 5 10:18:09 amitriptyli ne 10 mg tablet 2024 025 [id number], [address], [address], [place], [address], 5 10:17:51 buspirone 5 mg tablet 2023 025 [id number], [address], [address], [place], [address], 09:42:24 Patient TargetsNo targets recorded. Patient Instructions Encounter Date Encounter Id Patient Instructions Last Modified By Organization Details Last Modified Time 10/31/2024 [id number] Call or return f or questions or concerns. Not available 11/07/2024 11:15:58 12/19/2024 [id number] attention defici t hyperactivity disorder (ADHD) in adults: care instructions Not available 12/19/2024 10:08:46 Call or return f or questions or concerns. Not available 12/19/2024 10:06:56 02/12/2025 [id number] Call or return f or questions or concerns. Not available 02/12/2025 10:26:30 Reason for Referral None Reported. Results Created Date Observation Date Name Description Value Unit Range Abnormal Flag Note LastModifiedBy Organization Detail LastModifiedTime 10/21/20 24 10/21/2024 rapid strep group A, throa t Strep negati ve Not Available [facility] ([facility]) [address] [place] [address], [phone], 10/21/2024 11:07:10 10/31/20 24 11/01/2024 HCG, TOTAL , QL HCG, total, ql INDETE RMINAT E see note: abnormal Refer ence Range : Refer ence Range Non-P regna nt: Negat jerman Pregn ant: Posit jerman Repea t testi ng is sugge sted in 2 to 4 days if clini ap indic ated. Not Available [facility] [id number] [place] [address], [address], 11/01/2024 05:39:32 10/31/20 24 10/31/2024 pregn kary test, urine HCG negati ve Not Available [facility] ([facility]) [address] [place] [address], [phone], 10/31/2024 11:02:18 02/04/20 25 02/03/2025 pregn kary test, urine HCG positi ve Not Available [facility] ([facility]) [address] [place] [address], [address], 02/03/2025 12:09:19 02/13/20 25 02/12/2025 CBC WBC 7.2 x10 4.0-10 .5 Not Available [facility] [address], [place], [address], 02/12/2025 13:05:43 02/13/20 25 02/12/2025 CBC RBC 4.44 x10 3.50-5 .50 Not Available [facility] [address] [facility] [address] [facility] [address], [place], [address], 02/12/2025 13:05:43 02/13/20 25 02/12/2025 CBC HGB 13.1 g/dL 12.0-1 6.0 Not Available [facility] [address] [facility] [address], [place], [address], 02/12/2025 13:05:43 02/13/20 25 02/12/2025 CBC HCT 38.8 % 37.0-4 7.0 Not Available [facility] [address] [facility] [address], [place], [address], 02/12/2025 13:05:43 02/13/20 25 02/12/2025 CBC MCV 87.4 fL 80.0-9 9.9 Not Available [facility] [address] [facility] [address] [facility] [address], [place], [address], 02/12/2025 13:05:43 02/13/20 25 02/12/2025 CBC MCH 29.5 pg 27.0-3 2.0 Not Available [facility] [address] [facility] [address] [facility] [address], [place], [address], 02/12/2025 13:05:43 02/13/20 25 02/12/2025 CBC MCHC 33.8 g/dL 32.0-3 6.0 Not Available [facility] [address] [facility] [address] [facility] [address], [place], [address], 02/12/2025 13:05:43 02/13/20 25 02/12/2025 CBC RDW 14.7 % 11.5-1 4.5 high Not Available [facility] [address] [facility] [address], [place], [address], 02/12/2025 13:05:43 02/13/20 25 02/12/2025 CBC plt 227.9 x10 140.0- 451.0 Not Available [facility] [address] [facility] [address], [place], [address], 02/12/2025 13:05:43 02/13/20 25 02/12/2025 CBC lymphocytes % 23.1 % 20.0-5 0.0 Not Available [facility] [address] [facility] [address], [place], [address], 02/12/2025 13:05:43 02/13/20 25 02/12/2025 CBC granulcytes % 69.6 % 30.0-7 0.0 Not Available [facility] [address] [facility] [address], [place], [address], 02/12/2025 13:05:43 02/13/20 25 02/12/2025 CBC monocytes % 6.3 % 2.0-16 .0 Not Available [facility] [address] [facility] [address], [place], [address], 02/12/2025 13:05:43 02/13/20 25 02/12/2025 CBC granulcytes# 5.0 x10 Not Destini ilable [facility] [address] [facility] [address], [place], [address], 02/12/2025 13:05:43 02/13/20 25 02/12/2025 CBC lymphocytes # 1.7 x10 Not Available [facility] [address] [facility] [address], [place], [address], 02/12/2025 13:05:43 02/13/20 25 02/12/2025 CBC monocytes # 0.5 x10 Not Avai lable [facility] [address] [address], [place], [address], 02/12/2025 13:05:43 02/13/20 25 02/12/2025 CMP (FEMA LE) glucose 100.0 mg/dL 60.0-9 9.0 high Not Available [facility] [address] [address], [place], [address], 02/12/2025 13:19:08 02/13/20 25 02/12/2025 CMP (FEMA LE) BUN (blood urea nitrogen) 9.0 mg/dL 10.0-2 6.0 low Not Available [facility] [address] [address], [place], [address], 02/12/2025 13:19:08 02/13/20 25 02/12/2025 CMP (FEMA LE) creatinine (serum) 0.6 mg/dL 0.4-1. 5 Not Available [facility] [address] [address], [place], [address], 02/12/2025 13:19:08 02/13/20 25 02/12/2025 CMP (FEMA LE) BUN/creatini ne ratio 15.00 ratio Not Available [facility] [address] [address], [place], [address], 02/12/2025 13:19:08 02/13/20 25 02/12/2025 CMP (FEMA LE) eGFR calculated 128.4 Not Available [facility] [address] [address], [place], [address], 02/12/2025 13:19:08 02/13/20 25 02/12/2025 CMP (FEMA LE) total protein 7.1 g/dL 6.0-8. 5 Not Available [facility] [address] [facility] [address], [place], [address], 02/12/2025 13:19:08 02/13/20 25 02/12/2025 CMP (FEMA LE) total bilirubin 0.7 mg/dL 0.2-1. 3 Not Available [facility] [address] [facility] [address], [place], [address], 02/12/2025 13:19:08 02/13/20 25 02/12/2025 CMP (FEMA LE) albumin 4.2 g/dL 3.5-5. 5 Not Available [facility] [address] [facility] [address], [place], [address], 02/12/2025 13:19:08 02/13/20 25 02/12/2025 CMP (FEMA LE) globulin 2.9 calc Not Available [facility] [address] [facility] [address], [place], [address], 02/12/2025 13:19:08 02/13/20 25 02/12/2025 CMP (FEMA LE) AST (SGOT) 32.0 U/L 0.0-46 .0 Not Available [facility] [address] [facility] [address], [place], [address], 02/12/2025 13:19:08 02/13/20 25 02/12/2025 CMP (FEMA LE) altv (SGPT) 53.0 U/L 13.0-6 9.0 normal Not Available [facility] [address] [facility] [address], [place], [address], 02/12/2025 13:19:08 02/13/20 25 02/12/2025 CMP (FEMA LE) A/G ratio 1.4 ratio Not Available [facility] [address] [facility] [address], [place], [address], 02/12/2025 13:19:08 02/13/2002/12/2025 CMP (FEMA LE) ALP phos 89.0 U/L 30.0-1 40.0 normal Not Available [facility] [address] [facility] [address], [place], [address], 02/12/2025 13:19:08 02/13/2002/12/2025 CMP (FEMA LE) calcium 9.6 mg/dL 8.4-10 .5 Not Available [facility] [address] [facility] [address], [place], [address], 02/12/2025 13:19:08 02/13/2002/12/2025 CMP (FEMA LE) sodium 139.0 mmol/ L 136.0- 145.0 Not Available [facility] [address] [facility] [address], [place], [address], 02/12/2025 13:19:08 02/13/2002/12/2025 CMP (FEMA LE) potassium 3.8 mmol/ L 3.5-5. 1 Not Available [facility] [address] [facility] [address], [place], [address], 02/12/2025 13:19:08 02/13/2002/12/2025 CMP (FEMA LE) chloride 106.0 mmol/ L 98.0-1 10.0 normal Not Available [facility] [address] [facility] [address], [place], [address], 02/12/2025 13:19:08 02/13/2002/12/2025 CMP (FEMA LE) C02 25.0 mmol/ L 22.0-3 1.0 Not Available [facility] [address] [address], [place], [address], 02/12/2025 13:19:08 02/13/20 25 02/12/2025 CMP (FEMA LE) anion gap 8.0 calc Not Available [facility] [address] [facility] [address], [place], [address], 02/12/2025 13:19:08 02/13/20 25 02/12/2025 CMP (FEMA LE) osmolality 286.0 calc Not Available [facility] [address] [facility] [address], [place], [address], 02/12/2025 13:19:08 02/13/20 25 02/13/2025 HCG, TOTAL , QN HCG, total, qn 371415 mIU/m L high Verif ied by repea t jane sis. Refer ence Range Nonpr egnan t or preme nopau mdehat <5 Postm enopa usal <10 Value s from diffe rent assay metho ds may vary. The use of this assay to monit or or to diagn ose patie nts with cance r or any condi tion unrel ated to pregn kary has not been clear ed or appro crystal by the FDA or the [facility] actur er of the assay . Not Available [facility] [address] [place], [address], 02/13/2025 07:58:56 02/14/20 25 02/12/2025 US, obste tric, trans vagin al No observ ation record ed. [facility] [address] [place], [address], 02/18/2025 17:14:45 Result Notes None recorded. Problems Name Problem SNOMED Code Status Onset Date Resolution Date Notes Provider Name and Address Organization Details Recorded Time [id number] Completed 023 04/07/2024 Lesa Garcia MD [address] [place], [address], [facility] 18:34:29 Problem Notes None recorded. Procedures Surgical History Date Name Laterality Status Provider Name and Address Organization Details Recorded Time 5 ultrasound scan - obstetric completed ALEX ELIZABETH [facility], Sophy 02/14/2025 16:21:40 3 Date of Last Pap Smear completed RAPHAEL BAUER [facility], Sophy 06/13/2023 16:27:30 Imaging Results None recorded. Procedure Notes None recorded. Medical Equipment None Reported. Allergies No known drug allergies Medications Name Sig Start Date Stop Date Status Note LastModified by Organization Details LastModified Time amoxicill in 500 mg capsule Take 1 capsule twice a day by oral route. 04/05 completed Not Available Not Available Not Available buspirone 5 mg tablet TAKE 1 TABLET BY MOUTH TWICE A DAY 12/19 completed Not Available Not Available Not Available Colace 100 mg capsule Take 1 capsule every day by oral route. 02/03 completed Not Available Not Available Not Available Proctocor t 30 mg rectal supposito ry Insert 1 supposit ory twice a day by rectal route for 14 days. 02/03 completed Not Available Not Available Not Available sucralfat e 1 gram tablet TAKE ONE TABLET BY MOUTH BEFORE meals AND AT bedtime 03/22 completed Not Available Not Available Not Available Diflucan 150 mg tablet Take 1 tablet every 72 hours by oral route for 7 days. 04/19 completed Not Available Not Available Not Available metronida zole 500 mg tablet Take 1 tablet twice a day by oral route for 10 days. 06/13 completed Not Available Not Available Not Available Zofran 4 mg tablet 1-2 tabs po BID prn n/v 03/26 completed Not Available Not Available Not Available famotidin e 20 mg tablet TAKE ONE TABLET BY MOUTH EVERY TWELVE HOURS 03/22 completed Not Available Not Available Not Available amitripty line 10 mg tablet TAKE 1 TABLET EVERY DAY BY ORAL ROUTE FOR 30 DAYS, FOR HEADACHE S. 02/12 completed Stopped when she had a positive pregnanc y test Not Available Not Available Not Available omeprazol e 20 mg capsule,d elayed release TAKE ONE CAPSULE BY MOUTH DAILY 03/22 completed Not Available Not Available Not Available hydroxyzi ne HCl 10 mg tablet TAKE 1 TABLET TWICE A DAY BY ORAL ROUTE NEEDED FOR 30 DAYS, FOR ANXIETY. 02/12 completed Stopped when she had a positive pregnanc y test Not Available Not Available Not Available ondansetr on 4 mg disintegr ating tablet Place 1 tablet 3 times a day by translin gual route as needed, for nausea and vomiting . 2024 active Not Available Not Available Not Avai lable amoxicill in 875 mg-potass ium clavulana te 125 mg tablet Take 1 tablet every 12 hours by oral route for 10 days. 04/18 completed Not Available Not Available Not Available Sprintec (28) 0.25 mg-0.035 mg tablet 4 tabs po night 1, then 3 tbas po nights 2-4, then 2 tabs po nights 5-7, then 1 tab nightly 03/26 completed Not Available Not Available Not Available nitrofura ntoin monohydra te/macroc rystals 100 mg capsule TAKE 1 CAPSULE BY MOUTH EVERY 12 HOURS FOR 7 DAYS 01/16 completed Not Available Not Available Not Available amitripty line at bedtime 07/10 completed Recorded 10/21/20 22 10:20AM by Alex Johnson CMT, Office Visit; Refill Quantity : 30; Tablet; Not Available Not Available Not Available Vitals Date Recorded Body height Body mass index (BMI) Body weight Oxygen saturation Oxygen saturation in Arterial blood by Pulse oximetry Heart rate Respiratory rate Systolic And Diastolic Provider Name and Address Organization Details Last Updated DateTime 5 167.64 cm 29.2 kg/m2 77320.2 2 g 99 % 99 % 52 /min 20 /min 100/70 mm[Hg] ALEX JOHNSON [facility] 5 09:39:15 Date Recorded Body height Body mass index (BMI) Body weight Body temperature Heart rate Oxygen saturation Oxygen saturation in Arterial blood by Pulse oximetry Systolic And Diastolic Provider Name and Address Organization Details Last Updated DateTime 5 167.64 cm 28.9 kg/m2 30804.7 3 g 98.5 [degF] 58 /min 99 % 99 % 110/68 mm[Hg] Gayb Jhon [facility] 5 12:11:39 Date Recorded Body mass index (BMI) Body weight Provider Name and Address Organization Details Last Updated DateTime 02/12/2025 28.7 kg/m2 16241.44 g TENZIN YADAV, [facility] [address] [place], [address], [facility] 02/12/2025 10:20:41 Date Recorded Body height Oxygen saturation Oxygen saturation in Arterial blood by Pulse oximetry Heart rate Respiratory rate Systolic And Diastolic Provider Name and Address Organization Details Last Updated DateTime 5 167.64 cm 98 % 98 % 80 /min 18 /min 96/68 mm[Hg] ALEX ELIZABETH [facility] 5 10:05:56 Date Recorded Body height Body mass index (BMI) Body weight Oxygen saturation Oxygen saturation in Arterial blood by Pulse oximetry Heart rate Respiratory rate Systolic And Diastolic Provider Name and Address Organization Details Last Updated DateTime 4 167.64 cm 29.5 kg/m2 19851.4 g 99 % 99 % 99 /min 20 /min 104/80 mm[Hg] ALEX ELIZABETH [facility] 4 10:58:56 Social History Question Answer Notes LastModified by MOWGLI Details LastModified Time Tobacco Smoking Status Never Smoker [facility] 04/19/2023 13:56:07 What Is Your Level Of Caffeine Consumption? Moderate [email or web address] Information not available 08/16/2024 What Was The Date Of Your Most Recent Tobacco Screening? 08/16/2024 Information not available 08/16/2024 Sex: Unknown Functional Status Question Answer Note LastModified by MOWGLI Details LastModified Time Do you use any illicit or recreational drugs? No [email or web address] Information not available 12/19/2024 Do you or have you ever used any other forms of tobacco or nicotine? No Information not available 08/16/2024 What is your level of alcohol consumption? Occasional Information not available 08/16/2024 Are you currently employed? Yes [email or web address] Information not available 08/16/2024 Are you able to walk? [email or web address] Information not available 08/16/2024 Are you able to care for yourself? Yes Information n ot available 08/16/2024 Do you or have you ever used any nicotine-free cigarettes, vape, or chewing tobacco? No Information not available 08/16/2024 Mental Status None recorded. Family History Relationship Description Onset Age of this Age Resolved Age Notes LastModified by Organization Details LastModified Time Father Type 2 diabetes mellitus [email or web address] Not available 08/16 09:44:58 Medical History Condition Response Coronary Artery Disease N Other N Gout N Kidney Stones N Blood Diseases N Hyperthyroidism N Breast Cancer N Blood Transfusion N Depression N COPD N Lung Disease N Hypothyroidism N Developmental or Behavioral Disorders N Defects or Inherited Disease N Breast Problem N Difficulty Swallowing N Anesthesia Complications N Meniere's disease N Anxiety Disorder N Muscle, Joint, or Bone Problems N Vision or Eye Problems N Arthritis N Polyps N Infertility N Cancer N Varicosities N Stroke N Endometriosis N Bladder or Kidney Problems N High Cholesterol N Liver Disease N Headaches N Fibromyalgia N Kidney Disease N Allergies/Hayfever N Heart Problems N Ear or Hearing Problems N Hospitalizations N Thyroid Problems N GI Problems N ADD/ADHD N Skin Problems N Eating Disorder N Anemia N Constipation N Mental Illness N Ovarian Cancer N Diabetes N Bedwetting N Seizures/Epilepsy N Tuberculosis N Eczema N Diverticulitis N Abuse/Domestic Violence N Asthma N Reflux/GERD N Hepatitis N Heart Disease N Pulmonary Embolism N Pre-Eclampsia N Hypertension N Chronic Ear Infections N Osteoporosis N Chicken Pox N Autism Spectrum Disorder (ASD) N Thrombophilias N Gynecological History Statement/Question Response Abnormal Pap N Date of Last Pap Smear 03/20/2023 Date of LMP 04/30/2023 LMP Definite Sexually Active? Y Obstetrics History GPAL:G 2 P 0 0 1 0 Type Value Spontaneous 1 Living 0 Total 2 Past Encounters Encounter ID Performer Location Encounter Start Date Encounter Closed Date Diagnosis/Indication Diagnosis SNOMED-CT Code Diagnosis ICD10 Code Diagnosis Note [id number] Ayaz Pritchard MD [facility] ([facility]) [address] [place] [id number] 03/22/2023 09:53:27 03/22/2023 20:17:29 Streptococcal sore throat 12767163 J02.0 [id number] TENZIN YADAV [facility]) [address] [place] [id number] 04/05/2023 10:16:56 04/19/2023 09:13:31 Vaginitis 16688297 N76.0 [id number] TENZIN YADAV [facility]) [address] [place] [id number] 04/20/2023 16:08:23 05/14/2023 20:06:38 Trichomonal vaginitis 870514209 A59.00 Vaginal discharge 491555 006 N89.8 [id number] RBYAN GRANDA [facility] ([facility]) [address] [place] [id number] 5 05/30/2023 17:39:57 05/30/2023 20:04:05 Missed period 03366482 N92.5 Urine preg robbie test positive 428036015 Z32.01 [id number] Lesa Garcia MD [facility] ([facility]) [address] [place] [id number] 06/13/2023 16:22:50 06/25/2023 07:54:54 Gestation period, 6 weeks 83856945 Z3A.01 I reviewed what to avoid in and the plan of care. Normal pre gnancy in multigravida 2937266215 93349 Z34.81 [id number] Lesa Garcia MD [facility] ([facility]) [address] [place] [id number] 5 07/10/2023 10:37:35 07/10/2023 13:22:41 Gestation period, 10 weeks 22101455 Z3A.10 Normal pre gnancy in multigravida 9173049993 94911 Z34.81 Vaginal bl eeding complicating early 271755357 O20.9 FHT good, check blood alessia RH and u/s [id number] Lesa Garcia MD [facility] ([facility]) [address] [place] [id number] 07/10/2023 11:42:49 07/10/2023 19:37:30 Vaginal bleeding complicating early 021088022 O20.9 FHT good, check blood alessia RH and u/s [id number] Lesa Garcia MD [facility] ([facility]) [address] [place] [id number] 07/17/2023 16:23:26 07/25/2023 10:07:31 Normal in multigravida 3170586992 49201 Z34.81 Gestation period, 11 weeks 69379766 Z3A.11 Liver enzy mes level above reference range 916310230 R74.01 Patient states that she has an upcoming appointmen t with GI. She does not know if she should keep the appointmen t now that she is . She states that she was diagnosed with an enlarged liver by CT scan. She also had elevated liver enzymes. On reviewing her records she had some transient elevation of AST and ALT that returned to normal in October 2022. Has not had any follow-up since then. I advised her it would be okay to keep her GI appointmen t as they can still manage her chronic issues. [id number] Lesa Garcia MD [facility] ([facility]) [address] [place] [address] [phone] 5 08/17/2023 16:43:20 08/28/2023 10:13:31 Gestation period, 16 weeks [id number] Z3A.16 Normal pre gnancy in multigravida [id number] 51595 Z34.81 [id number] Lesa Garcia MD [facility] ([facility]) [address] [place] [address] [phone] 5 09/12/2023 11:36:04 09/12/2023 15:51:31 [id number] Lesa Garcia MD [facility] ([facility]) [address] [place] [address] [id number] 5 09/12/2023 16:41:19 09/20/2023 16:40:01 Gestation period, 20 weeks 54535384 Z3A.20 Normal pre gnancy in multigravida [id number] 31916 Z34.82 Lower abdominal pain 545 32253 R10.30 advised getting a belt. [id number] Lesa Garcia MD [facility] ([facility]) [address] [place] [address] [phone] 5 10/05/2023 10:35:54 10/05/2023 10:58:31 Gestation period, 23 weeks 12748297 Z3A.23 Normal pre gnancy in multigravida 5188480568 53377 Z34.82 [id number] Lesa Garcia MD [facility] ([facility]) [address] [place] [address] [phone] 5 11/06/2023 09:52:46 11/06/2023 11:11:42 Normal in multigravida [id number] 96232 Z34.83 Gestation period, 28 weeks 17840038 Z3A.28 [id number] Lesa Garcia MD [facility] ([facility]) [address] [place] [address] [phone] 5 11/06/2023 09:53:59 11/06/2023 11:19:10 [id number] Z33.1 [id number] Lesa Garcia MD [facility] ([facility]) [address] [place] [address] [phone] 5 11/22/2023 11:13:02 11/22/2023 12:32:42 Gestation period, 30 weeks 09006858 Z3A.30 Normal pre gnancy in multigravida 5927990620 32654 Z34.83 [id number] Lesa Garcia MD [facility] ([facility]) [address] [place] [address] [phone] 5 11/28/2023 08:51:19 11/28/2023 16:21:47 [id number] Lesa Garcia MD [facility] ([facility]) [address] [place] [address] [phone] 5 12/07/2023 16:41:35 12/07/2023 18:32:23 Gestation period, 32 weeks 6735487 Z3A.32 Normal pre gnancy in multigravida 5282116735 00906 Z34.83 [id number] Lesa Garcia MD [facility] ([facility]) [address] [place] [address] [phone] 5 12/21/2023 16:47:34 12/21/2023 17:23:42 Gestation period, 34 weeks 69569446 Z3A.34 Normal pre gnancy in multigravida 8566762718 29483 Z34.83 [id number] Lesa Garcia MD [facility] ([facility]) [address] [place] [address] [phone] 5 01/02/2024 11:00:55 01/02/2024 11:41:47 Gestation period, 36 weeks 47074233 Z3A.36 Normal pre gnancy in multigravida 4473864824 13619 Z34.83 Acute urin jarvis tract infection 071706731 N39.0 [id number] Lesa Garcia MD [facility] ([facility]) [address] [place] [address] [id number] 5 01/09/2024 11:22:37 01/09/2024 12:20:38 Gestation period, 37 weeks 74036577 Z3A.37 Normal pre gnancy in multigravida 6694882343 [address] reptococcus carrier 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 Z22.330 discussed w pt, abx during labor [id number] Lesa Garcia MD [facility] ([facility]) [address] [place], [place] [phone] 5 01/16/2024 10:50:11 01/16/2024 11:59:01 Gestation period, 38 weeks 89377495 Z3A.38 Normal pre gnancy in multigravida 1177941100 27982 Z34.83 [id number] Lesa Garcia MD [facility] ([facility]) [address] [place] [address] [phone] 5 01/23/2024 11:49:55 01/23/2024 17:28:41 Gestation period, 39 weeks 89859778 Z3A.39 Normal pre gnancy in multigravida 8110240321 24166 Z34.83 [id number] Lesa Garcia MD [facility] ([facility]) [address] [place] [address] [phone] 5 01/23/2024 15:16:35 01/25/2024 10:43:43 [id number] Lesa Garcia MD [facility] ([facility]) [address] [place] [address] [phone] 5 03/06/2024 09:41:43 03/09/2024 08:02:50 care 830918481 Z39.0 she is interested in the IUD but her bleeding has taken precedence so we will treat that first. Menorrhagia 262734014 N9 2.0 I suspect this is her first period . due to the amount of bleeding we will start high-dose ocp and see her back in a week. [id number] Lesa Garcia MD [facility] ([facility]) [address] [place] [address] [phone] 5 03/26/2024 12:06:36 03/26/2024 15:09:01 Hymenal tag [id number] N89.8 This will possible shrink and invert with more time . pt may make f/u procedure visit 30min for removal if it continues to cause discomfort . [id number] Lesa Garcia MD [facility] ([facility]) [address] [place] [address] [phone] 5 04/01/2024 09:53:30 04/01/2024 12:14:00 Acute sinusitis 42182532 J01.90 [id number] Lesa Garcia MD [facility] ([facility]) [address] [place] [address] [phone] 5 04/18/2024 11:59:54 04/18/2024 13:09:26 Hymenal tag [id number] N89.8 removed today. [id number] NATO CRUZ [facility] ([facility]) [address] [place] [address] [phone] 5 08/16/2024 08:52:50 08/16/2024 10:18:23 Female pelvic floor dysfunction 685674846 M99.05 Abdominal pain 74388533 R10.9 [id number] EVA PRITCHARD PA-C [facility] ([facility]) [address] [place] [address] [place] [phone] 5 10/21/2024 10:45:07 10/21/2024 11:48:50 Acute pharyngitis 422134097 J02.9 neg strep Acute uppe r respiratory infection 97755249 J06.9 viral infection. reassuranc e given. symptomati c tx for now. [id number] TENZIN YADAV [facility] ([facility]) [address] [place] [address] [phone] 5 10/31/2024 10:30:09 10/31/2024 15:21:56 Missed period 45765204 N92.5 Irritabili ty and anger 881750714 R45.4 Will plan to start buspirone after labs return regarding . [id number] TENZIN YADAV [facility] ([facility]) [address] [place] [address] [phone] 5 12/19/2024 09:06:16 12/19/2024 10:11:23 Chronic daily headache 5003595101 26094 R51.9 Generalize d anxiety disorder 71483907 F41.1 External hemorrhoids 239 37571 K64.4 Adult atte ntion deficit hyperactivity disorder 107773699 F90.9 [id number] KENDALL BRIGHT [facility] ([facility]) [address] [place] [address] [phone] 5 02/03/2025 11:51:29 02/03/2025 15:34:52 Missed period 84703548 N92.5 Positive urine . Advised to schedule follow up with PCP in the next 1-2 weeks. Viral gastroenteritis 11 8021935 A08.4 Increase po fluids. Acute gastroenteritis 69 345693 K52.9 [id number] TENZIN YADAV [facility] ([facility]) [address] [place] [address] [id number] 5 02/12/2025 09:32:37 02/12/2025 10:23:15 test positive 927746716 Z32.01 Lightheadedness 03220918 8 R42 [id number] TENZIN YADAV [facility] ([facility]) [address] [place] [address] [phone] 5 02/12/2025 12:49:41 02/13/2025 11:06:34 Normal in multigravida 4814391442 26163 Z34.81 Health Concerns Section Related Observation LastModified by Organization Detai ls LastModified Time None Recorded Concern Status LastModified by Organization Details LastModified Time None Recorded Advance Directives Directive None Recorded Payers Insurance Date Sequence Insurance Name Policy Number Policy Marrero Covered Member ID Marrero Member ID Guarantor Name 02/12/2025 3 [place] Elizabeth Anne [id number] Elizabeth Anne 04/02/2025 1 [employer] [id number] Elizabeth Anne [id number] Elizabeth Anne 04/02/2025 [place] [facility] [place] [id number] Elizabeth Anne [id number] Elizabeth Anne 06/06/2024 1 [place] [id number] Franklyn Quigleyro [id number] Elizabeth Anne Notes Date Note Type Note Provider Name and Address Organization Details Recorded Time 10/31/2024 text/html ADHDReported bypatient.Organization :poorly organized;loses things/forgetful Appetite:normal appetite Mood:irritable Sleep:poor sleep Attention:unable to focus Tasking:unable to initiate tasks;unable to complete tasks;unable to move on to the next task;procrastinates;te nds to start everything and finish nothing Patient reports she would like to get on a mood stabilizer or something to help with her ADHD. TENZIN YADAV [address], [address], [facility], [place] 11/07/2024 11:16:28 12/19/2024 text/html Generalized Anxi ety DisorderReported bypatient.Onset/Timing :monthsHeadacheReporte d bypatient.Location:inc luding neck; frontal Quality:similar to previous headaches Severity:moderate Duration:15-30 days/month Associated Symptoms:no vomiting;nausea TENZIN YADAV [address], [address], [facility], [place] 12/19/2024 10:09:19 02/03/2025 text/[facility]. Took 2 at home test which were both positive. Patient complains of cramping in the epigastric area. Has N/V/D for the last 2-3 days. LMP was 11/08/2024. KENDALL BRIGHT, [facility] [address] [place], [address], [facility], [place] 02/03/2025 15:34:21 02/12/2025 text/html DizzinessReporte d bypatient.Quality:[facility] Context:non-smoker TENZIN YADAV, [facility] [address] [place], [address], [facility], [place] 02/12/2025 10:28:04 OBGyn Episode Ob Episode Information Episode Created Date Number of Fetuses Patient Bloodtype Patient rh Status Prepregnancy Weight lbs Domestic Partner Domestic Partner Phone Father Name Fire Prevention Captain Status 06/13/20 23 1 O Positive Marceli no CLOSED Fetus Data First Name Last Name Admitted to NICU Weight (g) Sex Living Outcome Pediatric Complications Fetus ID Race Codes Race Delivery Type Aryia false F [id number] VAGINAL Luigi Calculation Initial Luigi Date Initial Exam Date Initial Exam Provider Initial Ultrasound Date Last Menstrual Period Date Ultra Sound Weeks Gestation 01/29/2024 06/13/2023 07/10/2023 04/30/2023 11 Eighteen To Twenty Week Luigi Update Ultra Sound Date Fundal Height At Umbil Quickening Date Ultra Sound Latest Weeks Gestation Final Luigi Confirmed By Final Luigi Confirmed Date Final Luigi Date Ultra Sound Latest Days Gestation 0 [email or web address] 07/17/2023 01/29/20 24 0 Pre-amanda Flowsheet Flowsheet Date 06/13/2023 [place] Score Blood Edema Fundus Height Fundus Units Glucose Ketones Leukocytes Nitrite Labor Signs Protein Cervic Dilation Cervic Effacement Cervic Station Type Weight in lbs Pre/Post Dialysis Refused With clothes 158.278507123885 BP Diastolic BP Location Tested BP Systolic BP Type 70 L arm 106 sitting Fetus Heart Rate Present Fetus Movement Comments Flowsheet Date 07/10/2023 [place] Score Blood Edema Fundus Height Fundus Units Glucose Ketones Leukocytes Nitrite Labor Signs Protein Cervic Dilation Cervic Effacement Cervic Station none 2+ trace Type Weight in lbs Pre/Post Dialysis Refused Weight 153.548930812961 BP Diastolic BP Location Tested BP Systolic BP Type 60 90 Fetus Heart Rate Present Fetus Movement Comments Started bleeding and spottin g 24 hours now. Flowsheet Date 07/10/2023 [place] Score Blood Edema Fundus Height Fundus Units Glucose Ketones Leukocytes Nitrite Labor Signs Protein Cervic Dilation Cervic Effacement Cervic Station Type Weight in lbs Pre/Post Dialysis Refused BP Diastolic BP Location Tested BP Systolic BP Type Fetus Heart Rate Present Fetus Movement Comments Flowsheet Date 07/17/2023 [place] Score Blood Edema Fundus Height Fundus Units Glucose Ketones Leukocytes Nitrite Labor Signs Protein Cervic Dilation Cervic Effacement Cervic Station Type Weight in lbs Pre/Post Dialysis Refused With clothes 153.763878551877 BP Diastolic BP Location Tested BP Systolic BP Type 74 R arm 110 sitting Fetus Heart Rate Present Fetus Movement Comments Flowsheet Date 08/17/2023 [place] Score Blood Edema Fundus Height Fundus Units Glucose Ketones Leukocytes Nitrite Labor Signs Protein Cervic Dilation Cervic Effacement Cervic Station none trace trace Type Weight in lbs Pre/Post Dialysis Refused Weight 155.69147332579 BP Diastolic BP Location Tested BP Systolic BP Type 70 100 Fetus Heart Rate Present A 145 Fetus Movement Comments (+trich, +BV treated right b efore ) Flowsheet Date 09/12/2023 [place] Score Blood Edema Fundus Height Fundus Units Glucose Ketones Leukocytes Nitrite Labor Signs Protein Cervic Dilation Cervic Effacement Cervic Station none none Negative trace Type Weight in lbs Pre/Post Dialysis Refused With clothes 157.716899419123 BP Diastolic BP Location Tested BP Systolic BP Type 80 L arm 132 sitting Fetus Heart Rate Present Fetus Movement Comments Flowsheet Date 09/12/2023 [place] Score Blood Edema Fundus Height Fundus Units Glucose Ketones Leukocytes Nitrite Labor Signs Protein Cervic Dilation Cervic Effacement Cervic Station Type Weight in lbs Pre/Post Dialysis Refused BP Diastolic BP Location Tested BP Systolic BP Type Fetus Heart Rate Present Fetus Movement Comments Flowsheet Date 10/05/2023 [place] Score Blood Edema Fundus Height Fundus Units Glucose Ketones Leukocytes Nitrite Labor Signs Protein Cervic Dilation Cervic Effacement Cervic Station 22 none trace neg Type Weight in lbs Pre/Post Dialysis Refused Weight 163.130842896424 BP Diastolic BP Location Tested BP Systolic BP Type 60 90 Fetus Heart Rate Present A 138 Fetus Movement Comments oswald u/s wnl, glucose next v isit. Flowsheet Date 11/06/2023 [place] Score Blood Edema Fundus Height Fundus Units Glucose Ketones Leukocytes Nitrite Labor Signs Protein Cervic Dilation Cervic Effacement Cervic Station Type Weight in lbs Pre/Post Dialysis Refused BP Diastolic BP Location Tested BP Systolic BP Type Fetus Heart Rate Present Fetus Movement Comments Flowsheet Date 11/06/2023 [place] Score Blood Edema Fundus Height Fundus Units Glucose Ketones Leukocytes Nitrite Labor Signs Protein Cervic Dilation Cervic Effacement Cervic Station 27 none 1+ trace Type Weight in lbs Pre/Post Dialysis Refused Weight 169.145575058113 BP Diastolic BP Location Tested BP Systolic BP Type 60 100 Fetus Heart Rate Present A 138 Fetus Movement Comments kick counts handout discusse d. Girl, Sanket. Jose peds. BC after baby is born. Flowsheet Date 11/22/2023 [place] Score Blood Edema Fundus Height Fundus Units Glucose Ketones Leukocytes Nitrite Labor Signs Protein Cervic Dilation Cervic Effacement Cervic Station 30 none trace Negative trace Type Weight in lbs Pre/Post Dialysis Refused With clothes 170.505112540418 BP Diastolic BP Location Tested BP Systolic BP Type 68 L arm 108 sitting Fetus Heart Rate Present A 142 Fetus Movement Comments 101/12.7, RSV vac discussed, no baby nursery but theme of [employer] Flowsheet Date 11/28/2023 [place] Score Blood Edema Fundus Height Fundus Units Glucose Ketones Leukocytes Nitrite Labor Signs Protein Cervic Dilation Cervic Effacement Cervic Station Type Weight in lbs Pre/Post Dialysis Refused BP Diastolic BP Location Tested BP Systolic BP Type Fetus Heart Rate Present Fetus Movement Comments Flowsheet Date 12/07/2023 [place] Score Blood Edema Fundus Height Fundus Units Glucose Ketones Leukocytes Nitrite Labor Signs Protein Cervic Dilation Cervic Effacement Cervic Station 32 none trace neg Type Weight in lbs Pre/Post Dialysis Refused Weight 176.148241230403 BP Diastolic BP Location Tested BP Systolic BP Type 70 100 Fetus Heart Rate Present A 135 Fetus Movement Comments epidural consult recommended . pain meds, baby meds reviewed. Flowsheet Date 12/21/2023 [place] Score Blood Edema Fundus Height Fundus Units Glucose Ketones Leukocytes Nitrite Labor Signs Protein Cervic Dilation Cervic Effacement Cervic Station 32 none trace trace Type Weight in lbs Pre/Post Dialysis Refused Weight 182.375749798879 BP Diastolic BP Location Tested BP Systolic BP Type 60 92 Fetus Heart Rate Present A 158 Fetus Movement Comments Feet and ankles swelling aft er working all day. TDAP and RSV RX given to pt. today. Flowsheet Date 01/02/2024 [place] Score Blood Edema Fundus Height Fundus Units Glucose Ketones Leukocytes Nitrite Labor Signs Protein Cervic Dilation Cervic Effacement Cervic Station 33 none 3+ trace Type Weight in lbs Pre/Post Dialysis Refused Weight 183.178440777235 BP Diastolic BP Location Tested BP Systolic BP Type 90 118 Fetus Heart Rate Present A 140 Fetus Movement Comments Spotting intermittent. D/C i s watery. Flowsheet Date 01/09/2024 [place] Score Blood Edema Fundus Height Fundus Units Glucose Ketones Leukocytes Nitrite Labor Signs Protein Cervic Dilation Cervic Effacement Cervic Station 36 none 2+ trace Type Weight in lbs Pre/Post Dialysis Refused Weight 186.993779790114 BP Diastolic BP Location Tested BP Systolic BP Type 70 100 Fetus Heart Rate Present A 130 Fetus Movement Comments consents done. Pt. said she has a constant headache that wont go away for at least 2mos and its getting worse. Cytotec form gone over today. Flowsheet Date 01/16/2024 [place] Score Blood Edema Fundus Height Fundus Units Glucose Ketones Leukocytes Nitrite Labor Signs Protein Cervic Dilation Cervic Effacement Cervic Station 37 none trace trace Type Weight in lbs Pre/Post Dialysis Refused Weight 183.953087045772 BP Diastolic BP Location Tested BP Systolic BP Type 70 119 Fetus Heart Rate Present A 135 Fetus Movement Comments Flowsheet Date 01/23/2024 [place] Score Blood Edema Fundus Height Fundus Units Glucose Ketones Leukocytes Nitrite Labor Signs Protein Cervic Dilation Cervic Effacement Cervic Station 38 none trace trace Type Weight in lbs Pre/Post Dialysis Refused Weight 185.866877780205 BP Diastolic BP Location Tested BP Systolic BP Type 80 121 Fetus Heart Rate Present A 130 Fetus Movement Comments Pt. is undressed. She wants to be checked today. Flowsheet Date 01/23/2024 [place] Score Blood Edema Fundus Height Fundus Units Glucose Ketones Leukocytes Nitrite Labor Signs Protein Cervic Dilation Cervic Effacement Cervic Station Type Weight in lbs Pre/Post Dialysis Refused BP Diastolic BP Location Tested BP Systolic BP Type Fetus Heart Rate Present Fetus Movement Comments Flowsheet Date 03/06/2024 [place] Score Blood Edema Fundus Height Fundus Units Glucose Ketones Leukocytes Nitrite Labor Signs Protein Cervic Dilation Cervic Effacement Cervic Station Type Weight in lbs Pre/Post Dialysis Refused With clothes 172.077469695668 BP Diastolic BP Location Tested BP Systolic BP Type 74 R arm 120 sitting Fetus Heart Rate Present Fetus Movement Comments Flowsheet Date 03/26/2024 [place] Score Blood Edema Fundus Height Fundus Units Glucose Ketones Leukocytes Nitrite Labor Signs Protein Cervic Dilation Cervic Effacement Cervic Station Type Weight in lbs Pre/Post Dialysis Refused Weight 171.868418199208 BP Diastolic BP Location Tested BP Systolic BP Type 60 100 Fetus Heart Rate Present Fetus Movement Comments Flowsheet Date 04/01/2024 [place] Score Blood Edema Fundus Height Fundus Units Glucose Ketones Leukocytes Nitrite Labor Signs Protein Cervic Dilation Cervic Effacement Cervic Station Type Weight in lbs Pre/Post Dialysis Refused With clothes 172.490835829031 BP Diastolic BP Location Tested BP Systolic BP Type 72 L arm 110 sitting Fetus Heart Rate Present Fetus Movement Comments Menstrual History Last Menstrual Date Menses Monthly On Bcp Conception Prior Menses Frequency Hcg Plus Date Menarche Onset Age 0604/30/2023 Genetic Screening And Infection History Question Response Note Patient's Age Will Be 35 Years Or Older At Estim ated Date of Delivery false Thalassemia (Iranian, Monegasque, Mediterranean, Or Background): MCV < 80 false Neural Tube Defect (Meningomyelocele, Spina Bifi da, Or Anencephaly) false Congenital Heart Defect false Down Syndrome false Oumar-Sachs (eg, Islam, Cajun, Bangladeshi-Natrona) f alse Krista Disease false Sickle Cell Disease Or Trait () false Hemophilia Or Other Blood Disorders false Muscular Dystrophy false Cystic Fibrosis false [place]'s Chorea false Intellectual Disability/Autism false If Yes, Was Person Tested For Fragile X? false Other Inherited Genetic Or Chromosomal Disorder false Maternal Metabolic Disorder (eg, Type 1 Diabetes , PKU) false Patient Or Baby's Father Had A Child With Defects Not Listed Above false Recurrent Loss, Or A Stillbirth false Medications (including Suppl ements, Vitamins, Herbs, OTC Drugs), Illicit/Recreational Drugs, Alcohol false If Yes, Agent(s) And Strength/Dosage false Any Other Genetic History false Live With Someone With TB Or Exposed To TB false Patient Or Partner Has History Of Genital Herpes false Rash Or Viral Illness Since Last Menstrual Perio d false History Of STD, Gonorrhea, Chlamydia, HPV, Syphi lis false Other Infection History false History of HIV false History of Hepatitis false Prior GBS-infected child false Hemoglobinopathy Or Carrier false Other Structural Defect false Recent Travel History Outside of Country false Mental Retardation/Autism false Delivery Information Delivery Date Delivery Type Labor Anesthesia Weeks Gestation Incision Type Labor Labor Length Hrs Delivered By Post Complications Tubal Sterilization Discharge Date Comments 4 [facility]a neous [facility] Lesa Garcia MD Discharge Information Feeding Method Contraceptive Method Maternal HG B and HCT Levels
--- NOTE | 2025-06-09 11:06 | ED_ITS ---
HPI - Abdominal Pain 2 General: Chief Complaint: Anxiety Stated Complaint: Chest Pain, Abd Pain, N/V Time Seen by Provider: 06/09/25 10:43 Source: patient Mode of arrival: EMS Limitations: no limitations History of Present Illness: Patient is a 25-year-old female presents to ED today with a complaint of epigastric abdominal pain and chest pain. Patient states she has been up all night vomiting. She has not noted any hematemesis. She has also had diarrhea. 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 Her UDS results here are positive for marijuana all the way back to 2019. She does tell me she had a similar previous episode to today and was told it was hyperemesis cannabis syndrome. Denies previous abdominal surgeries. No fevers. She appears anxious and uncomfortable upon arrival. Vital signs are stable. MD elicited complaint: abdominal pain Onset (ago): day(s) Pain Consistency: constant Location: Diffuse and Epigastric Severity: moderate Radiation: none Migration to: no migration Associated Symptoms: Reports no associated symptoms, diarrhea, nausea and vomiting; Denies chills, dysuria, fever(s) and syncope Related Data Previous Rx's ?Medication ?Instructions ?Recorded ibuprofen 800 mg tablet 800 mg PO QID PRN pain #20 t abs 04/03/25 lorazepam 1 mg tablet (Ativan) 1 mg sublingual Q8H PRN nausea and 06/09/25 vomiting #7 tabs olanzapine 5 mg disintegrating 5 mg PO .q12 PRN nausea and 06/09/25 tablet vomiting #4 tabs Allergies Allergy/AdvReac Type Severity Reaction Status Date / Time No Known Allergies Allergy Verified 09/25/24 08:48 Review of Systems 2 Const: Denies: fever(s), chills, body aches, fatigue or malaise Card: Reports: chest pain; Denies: palpitations, irregular heart rhythm, edema, swelling of feet/ankles, syncope, pre-syncope or dyspnea on exertion Resp: Denies: dyspnea GI: Reports: abdominal pain, nausea, vomiting and diarrhea : Denies: flank pain, difficulty voiding, dysuria, urinary frequency, urinary urgency or urinary hesitancy Musc: Denies: neck pain, back pain, extremity pain, extremity swelling, joint swelling or joint redness Skin/Breast: Denies: rash Neuro: Denies: headache(s), numbness in extremities, weakness in extremities, sensory changes or dizziness PFSH ED 2 PFSH: Medical History History of chlamydia IBS (irritable bowel syndrome) [place] History of ADHD no support for this diangosis Bipolar 2 disorder Low back pain Dysmenorrhea Depression ADD (attention deficit disorder) Anxiety IBS (irritable bowel syndrome) Family History Father Diabetes Hypercholesteremia Denies family history of Colon cancer Ovarian cancer Heart disease Breast cancer Hypertension Uterine cancer Thyroid disease Stroke Social History Smoking and tobacco/nicotine status: never used tobacco/nicotine Substance/Drug Use: current Substance/Drug use frequency: few times a month Physical Exam 2 Const: COMMON NORMALS: average body habitus, patient oriented x3, no limitations, healthy appearing, alert and well nourished GENERAL APPEARANCE: in distress and anxious Chest: COMMONS NORMALS: normal inspection of the chest and normal palpation of entire chest wall Resp: COMMON NORMALS: normal respiratory effort and clear to auscultation bilaterally AUSCULTATION: clear to auscultation bilaterally Cardio: COMMON NORMALS: regular rate and regular rhythm RATE: regular rate RHYTHM: regular rhythm GI: COMMON NORMALS: Normal to inspection, nondistended, normoactive bowel sounds present, Soft to palpation, No hepatosplenomegaly present and no masses INSPECTION: Yes normal to inspection AUSCULTATION: Yes normoactive bowel sounds PALPATION: Yes Soft to palpation, Yes Tenderness to palpation present (GI) (mainly upper abdomen), Yes Guarding due to palpation present (GI), No Rigid due to palpation and Yes No hepatosplenomegaly present : COMMON NORMALS: Yes no CVA tenderness BLADDER/KIDNEY EXAM: Yes no CVA tenderness Back/Pelvis: COMMON NORMALS: no CVA tenderness, thoracic and lumbar spine normal to inspection and no thoracic nor lumbar tenderness Extremity: GENERAL: Yes normal exam except as noted Neuro: COMMON NORMALS: patient oriented x3, moves all extremities, no focal motor deficits and no sensory deficits noted SENSORIUM/ORIENTATION: Yes alert Skin: COMMON NORMALS: no rashes or lesions noted GENERAL SKIN EXAM: no rashes or lesions noted Course 2 Vital Signs: Vital signs: Vital Signs Temperature 98.0 F 06/09/25 10:52 Pulse Rate 66 06/09/25 11:40 Respiratory Rate 16 06/09/25 11:40 Blood Pressure 94/55 06/09/25 11:40 Pulse Oximetry 96 06/09/25 11:40 Oxygen Delivery Me thod Room Air 06/09/25 10:52 MDM - Abdominal Pain Medical Decision Making Feeling significantly better after IV medications here including Ativan, Haldol, Zofran. She tells me that her abdominal chest pain is completely resolved. Highly suspect that symptoms are related to her hyperemesis cannabis situation. Blood work overall is nonactionable. UA does not appear infected. She does not require emergent imaging. Patient will be allowed discharge with return precautions. Medical Records I reviewed the patient's medical records. Lab Data I reviewed the patient's lab results. 06/09/25 10:50 06/09/25 10:50 Labs/Radiology: Laboratory Results WBC 8.38 10^3/uL (3.29-11.43) 06/09/25 10:50 RBC 4.72 10^6/uL (3.85-5.65) 06/09/25 10:50 Hgb 10.90 g/dL (11.27-16.99) L 06/09/25 10:50 Hct 35.1 % (36-47) L 06/09/25 10:50 MCV 74.4 fl (85-98) L 06/09/25 10:50 MCH 23.1 pg (27-33) L 06/09/25 10:50 MCHC 31.1 g/dL (30-55) 06/09/25 10:50 RDW 16.1 % (12.1-15.1) H 06/09/25 10:50 Plt Count 313 10^3/cmm (157-399) 06/09/25 10:50 MPV 12.2 fL (7.4-10.4) H 06/09/25 10:50 Neut % (Auto) 92.2 % 06/09/25 10:50 Lymph % (Auto) 4.7 % 06/09/25 10:50 [place] % (Auto) 2.5 % 06/09/25 10:50 Eos % (Auto) 0.0 % 06/09/25 10:50 Baso % (Auto) 0.1 % 06/09/25 10:50 Neut # (Auto) 7.73 10^3/uL (1.8-7.7) H 06/09/25 10:50 Lymph # (Auto) 0.4 10^3/uL (0.8-4.8) L 06/09/25 10:50 Wells # (Auto) 0.2 10^3/uL (0.2-0.9) 06/09/25 10:50 Eos # (Auto) 0.0 10^3/uL (0.0-0.8) 06/09/25 10:50 Baso # (Auto) 0.0 10^3/uL (0.0-0.1) 06/09/25 10:50 Nucleated RBC % (auto) 0 % 06/09/25 10:50 Nucleated RBCs # 0.0 /100WBC 06/09/25 10:50 Sodium 136 mmol/L (136-145) 06/09/25 10:50 Potassium 3.4 mmol/L (3.5-5.1) L 06/09/25 10:50 Chloride 99 mmol/L (98-107) 06/09/25 10:50 Carbon Dioxide 17 mmol/L (22-29) L 06/09/25 10:50 Anion Gap 23.4 (5-19) H 06/09/25 10:50 BUN 10 mg/dL (6-20) 06/09/25 10:50 Creatinine 0.6 mg/dL (0.5-0.9) 06/09/25 10:50 GFR Calculation 119.9 mL/min (90-130) 06/09/25 10:50 Glucose 131 mg/dL (65-115) H 06/09/25 10:50 Calculated Osmolality 283 mOsm/kg (285-295) L 06/09/25 10:50 Calcium 9.7 mg/dL (8.5-10.5) 06/09/25 10:50 Total Bilirubin 1.2 mg/dL (0.15-1.2) 06/09/25 10:50 AST 23 U/L (0-32) 06/09/25 10:50 ALT 19 U/L (0-33) 06/09/25 10:50 Alkaline Phosphatase 83 U/L (35-105) 06/09/25 10:50 Total Protein 7.9 g/dL (6.6-8.7) 06/09/25 10:50 Albumin 4.9 g/dL (3.5-5.2) 06/09/25 10:50 Globulin 3.0 g/dL (1.3-4.6) 06/09/25 10:50 Lipase 8 U/L (13-60) L 06/09/25 10:50 HCG, Qual Negative (Negative) 06/09/25 10:50 Urine Color Yellow (Yellow) 06/09/25 11:15 Urine Appearance Clear (CLEAR) 06/09/25 11:15 Urine pH 8.5 (5-7) A 06/09/25 11:15 Ur Specific [place] 1.024 (1.005-1.030) 06/09/25 11:15 Urine Protein 1+ (Negative) A 06/09/25 11:15 Urine Glucose (UA) Negative (Normal) 06/09/25 11:15 Urine Ketones 4+ (Negative) 06/09/25 11:15 Urine Blood Non-haemolysed trace (Negative) 06/09/25 11:15 Urine Nitrate Negative (Negative) 06/09/25 11:15 Urine Bilirubin Negative (Negative) 06/09/25 11:15 Urine Urobilinogen 1.0 mg/dL (Negative) 06/09/25 11:15 Ur Leukocyte Esterase Negative (Negative) 06/09/25 11:15 Urine RBC 11-20 /hpf (0-2) H 06/09/25 11:15 Urine WBC 0-5 /hpf (0-5) 06/09/25 11:15 Ur Squamous Epith Cells 0-5 /hpf (0-5) 06/09/25 11:15 Amorphous Sediment Not Reportable 06/09/25 11:15 Urine Bacteria None seen /hpf (NONE) 06/09/25 11:15 Hyaline Casts 1.21 /lpf 06/09/25 11:15 No radiology studies performed this visit Discharge Plan Discharge Patient Disposition: Home Clinical Impression: Cannabis 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 abuse Condition: Stable Prescriptions: New lorazepam [Ativan] 1 mg tablet 1 mg sublingual Q8H PRN (Reason: nausea and vomiting) Qty: 7 0RF olanzapine 5 mg tablet,disintegrating 5 mg PO .q12 PRN (Reason: nausea and vomiting) Qty: 4 0RF No Action ibuprofen 800 mg tablet 800 mg PO QID PRN (Reason: pain) Qty: 20 0RF Discharge Orders: Discharge ED (Routine); Ordered 06/09/25 Ordered By: Radha Castillo Referrals: Kathy Dubois FNP [Primary Care Provider, Unknown] Patient Instructions: Patient Portal & Tash Instructions Activity Restrictions/Additional Instructions: Please follow-up with your primary care provider later this week for reevaluation. You may use the medications prescribed to you as directed to help your nausea and vomiting over the next 48 hours. Recommending complete cessation of marijuana use. Print Language: Lebanese Coding Level of Care Code ED [employer] Supervisor for Dannielle Amaya
--- NOTE | 2025-06-09 11:06 | XRR_ITS ---
PROCEDURE INFORMATION: Exam: XR Chest Exam date and time: 06/09/2025 11:47 AM Age: 25 years old Clinical indication: Pain; Angina pectoris; Additional info: Chest pain TECHNIQUE: Imaging protocol: Radiologic exam of the chest. Views: 1 view. COMPARISON: CR XR chest 2V* [id number] 12/29/2019 12:34 AM FINDINGS: Lungs: Unremarkable. No consolidation. Pleural spaces: Unremarkable. No pleural effusion. No pneumothorax. Heart/Mediastinum: Unremarkable. No cardiomegaly. Bones/joints: Unremarkable. XR/XR chest 1V portable [id number] IMPRESSION: No acute findings.
[2025-06-09 11:09] LABS: Hematocrit 35.1 % (36-47); Hemoglobin 10.90 g/dL (11.27-16.99); Mean Corpuscular HGB Conc 31.1 g/dL (30-55); Mean Corpuscular Hemoglobin 23.1 pg (27-33); Mean Corpuscular Volume 74.4 fl (85-98); Nucleated Red Blood Cells % 0 %; Platelet Count 313 10^3/cmm (157-399); Red Blood Count 4.72 10^6/uL (3.85-5.65); White Blood Count 8.38 10^3/uL (3.29-11.43)
[2025-06-09] MEDS: haloperidol inj 5 mg/mL INJ 1 mL 2.5 MG IVP (11:16)
[2025-06-09] MEDS: LORazepam 1 MG/0.5 ML injection IVP (11:17)
[2025-06-09] MEDS: ondansetron 2 mg/ML SDV 2 mL 4 MG IVP (11:17)
[2025-06-09 11:22] LABS: Alanine Aminotransferase 19 U/L (0-33); Albumin Level 4.9 g/dL (3.5-5.2); Alkaline Phosphatase 83 U/L (35-105); Anion Gap 23.4 (5-19); Aspartate Amino Transferase 23 U/L (0-32); Blood Urea Nitrogen 10 mg/dL (6-20); Calcium 9.7 mg/dL (8.5-10.5); Carbon Dioxide 17 mmol/L (22-29); Chloride 99 mmol/L (98-107); Creatinine Clr Calc Pharmacy 147.6867; Globulin 3.0 g/dL (1.3-4.6); Glucose 131 mg/dL (65-115); Lipase 8 U/L (13-60); Osmolality Calculated 283 mOsm/kg (285-295); Potassium 3.4 mmol/L (3.5-5.1); Sodium 136 mmol/L (136-145); Total Protein 7.9 g/dL (6.6-8.7)
[2025-06-09 11:29] LABS: Glucose Urine UA Negative (Normal); Nitrate Urine Negative (Negative); Specific Gravity, Urine 1.024 (1.005-1.030)
[2025-06-09 11:31] LABS: HCG, Serum Qual Negative (Negative)
[2025-06-09 11:34] LABS: Add Urine Microscopic? YES
[2025-06-09 11:40] VITALS: BP 94/55; PULSE 66; RESP 16; O2SAT 96
[2025-06-09 11:44] LABS: Slide Review Slide Review Perform
[2025-06-09 12:00] VITALS: BP 113/60; PULSE 63; RESP 16; O2SAT 99
[2025-06-09 12:10] VITALS: BP 113/60; PULSE 70; RESP 16; O2SAT 100
== END 2025-06-09 12:10 | disposition home or self-care (01) ==
PROVIDERS: Emergency Provider Physician Assistant; PCP Nurse Practitioner Family
DX: R11.10 Vomiting, unspecified (principal); F12.10 Cannabis abuse, uncomplicated
CPT/HCPCS: 36415; 71045; 80053; 81001; 83690; 84703; 85025; 93005; 96361; 96374; 96375; 99285; J1630; J2060; J2405; J7030

== ENCOUNTER 2025-06-11 05:55 | Emergency (ER) | payer BC, MEDICAID, SELFPAY ==
[2025-06-11] VITALS (8 sets, daily range): BP systolic 87–113; BP diastolic 51–71; PULSE 51–63; RESP 16–24; TEMP 36.8; O2SAT 97–100; BMI 29.3
--- NOTE | 2025-06-11 05:57 | ECG_ITS ---
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 Measurements Intervals [place] Rate: 55 P: 61 [place]: 131 QRS: 84 QRSD: 94 T: 79 QT: 414 QTc: 399 Interpretive Statements SINUS BRADYCARDIA WITH SINUS ARRHYTHMIA MODERATE ST DEPRESSION [0.05+ mV ST DEPRESSION] Compared to ECG 06/09/2025 10:55:05 Sinus rhythm no longer present ST (T wave) deviation still present Electronically Signed On 06-12-2025 09:04:01 CDT by Kendall Avila M.D. [email or web address]
--- NOTE | 2025-06-11 05:57 | XRR_ITS ---
PROCEDURE INFORMATION: Exam: XR Chest Exam date and time: 06/11/2025 6:01 AM Age: 25 years old Clinical indication: Pain; Chest pressure; Additional info: Dyspnea/cough TECHNIQUE: Imaging protocol: Radiologic exam of the chest. Views: 1 view. COMPARISON: CR XR chest 1V portable [id number] 06/09/2025 11:47 AM FINDINGS: Lungs: Unremarkable. No consolidation. Pleural spaces: Unremarkable. No pleural effusion. No pneumothorax. Heart/Mediastinum: Unremarkable. No cardiomegaly. Bones/joints: Unremarkable. XR/XR chest 1V portable [id number] IMPRESSION: No acute findings.
--- NOTE | 2025-06-11 06:09 | W.ED.ABDPA2 ---
HPI - Abdominal Pain General: Chief Complaint: Abdominal Pain Stated Complaint: cp Time Seen by Provider: 06/11/25 05:56 History of Present Illness: 25 year-old female presents to the emergency room via EMS with complaints of abdominal and chest discomfort persistent nausea and vomiting. She was seen here couple days ago with a similar presentation was thought to be hyperemesis cannabinoid it appears to be at this time as well she has not had any hematemesis or coffee-ground emesis. It is difficult to get her to provide any history because of her persistent nausea and vomiting. Reports symptoms began overnight. Was able to get out of her no dysuria urgency or frequency no hematemesis coffee-ground emesis no diarrhea. She has significant dry heaving minimal bilious like vomiting. Associated Symptoms: Reports nausea and vomiting; Denies chills, coffee ground emesis, dysuria, fever(s), hematochezia, hematemesis and melena Related Data Date of Last Menstrual Period: 06/11/25 Previous Rx's ?Medication ?Instructions ?Recorded ibuprofen 800 mg tablet 800 mg PO QID PRN pain #20 tabs 04/03/25 lorazepam 1 mg tablet (Ativan) 1 mg sublingual Q8H PRN nausea and 06/09/25 vomiting #7 tabs olanzapine 5 mg disintegrating 5 mg PO .q12 PRN nausea and 06/09/25 tablet vomiting #4 tabs lorazepam 2 mg tablet (Ativan) 2 mg buccal Q6H PRN nausea and 06/11/25 vomiting #10 tabs olanzapine 10 mg disintegrating 10 mg PO Q8H PRN nausea and 06/11/25 tablet vomiting #10 tabs Allergies Allergy/AdvReac Type Severity Reaction Status Date / Time No Known Allergies Allergy Verified 06/11/25 06:03 Review of Systems Const: Denies: fever(s) or chills Card: Denies: chest pain Resp: Denies: dyspnea GI: Reports: abdominal pain, nausea and vomiting; Denies: hematemesis, coffee ground emesis, hematochezia or melena : Denies: dysuria, urinary frequency or urinary urgency Musc: Denies: neck pain or back pain Skin/Breast: Denies: rash PFSH ED PFSH: Medical History History of chlamydia IBS (irritable bowel syndrome) [place] History of ADHD no support for this diangosis Bipolar 2 disorder Low back pain Dysmenorrhea Depression ADD (attention deficit disorder) Anxiety IBS (irritable bowel syndrome) Family History Father Diabetes Hypercholesteremia Denies family history of Colon cancer Ovarian cancer Heart disease Breast cancer Hypertension Uterine cancer Thyroid disease Stroke Social History Smoking and tobacco/nicotine status: never used tobacco/nicotine Substance/Drug Use: current Substance/Drug use frequency: few times a month Female Reproductive History: Date of last menstrual period: 06/11/25 Physical Exam Const: ORIENTATION/CONSCIOUSNESS: Yes awake, Yes oriented to person, Yes oriented to place and Yes oriented to time HENMT: COMMON NORMALS: normocephalic, atraumatic and hearing grossly normal bilaterally HEAD & SCALP: normocephalic and atraumatic Resp: COMMON NORMALS: normal respiratory effort, No retractions, No use of accessory muscles and clear to auscultation bilaterally AUSCULTATION: clear to auscultation bilaterally Cardio: COMMON NORMALS: regular rate, regular rhythm and No murmurs present (Cardio) RATE: regular rate RHYTHM: regular rhythm GI: COMMON NORMALS: Soft to palpation and No hepatosplenomegaly present AUSCULTATION: Yes normoactive bowel sounds PALPATION: Yes Soft to palpation, No Tenderness to palpation present (GI), No Guarding due to palpation present (GI) and Yes No hepatosplenomegaly present Extremity: COMMON NORMALS: normal to inspection, capillary refill normal, no clubbing, cyanosis or edema, no calf tenderness and no pedal edema Neuro: SENSORIUM/ORIENTATION: Yes oriented to person, Yes oriented to place and Yes oriented to time Skin: COMMON NORMALS: no rashes or lesions noted GENERAL SKIN EXAM: no rashes or lesions noted Course Vital Signs: Vital signs: Vital Signs Temperature 98.2 F 06/11/25 05:59 Pulse Rate 51 L 06/11/25 10:13 Respiratory Rate 16 06/11/25 10:13 Blood Pressure 101/65 06/11/25 10:13 Pulse Oximetry 97 06/11/25 10:13 Oxygen Delivery Me thod Room Air 06/11/25 06:32 MDM - Abdominal Pain Medical Decision Making CT did not show any acute intra-abdominal findings urine shows cystitis there is little thickening of the bladder wall she is given Rocephin here and discharged home with cephalexin follow-up with her primary care Medical Records I reviewed the patient's medical records. Lab Data I reviewed the patient's lab results. 06/11/25 05:45 06/11/25 05:45 Labs/Radiology: Radiology Impressions Chest X-Ray 06/11/25 05:57 IMPRESSION: No acute findings. Abdomen/Pelvis CT 06/11/25 09:00 IMPRESSION: 1. No acute abdominal or pelvic abnormalities. 2. Normal appendix. 3. No renal obstruction or perinephric stranding. Laboratory Results WBC 5.22 10^3/uL (3.29-11.43) 06/11/25 05:45 RBC 4.77 10^6/uL (3.85-5.65) 06/11/25 05:45 Hgb 11.20 g/dL (11.27-16.99) L 06/11/25 05:45 Hct 36.3 % (36-47) 06/11/25 05:45 MCV 76.1 fl (85-98) L 06/11/25 05:45 MCH 23.5 pg (27-33) L 06/11/25 05:45 MCHC 30.9 g/dL (30-55) 06/11/25 05:45 RDW 16.5 % (12.1-15.1) H 06/11/25 05:45 Plt Count 249 10^3/cmm (157-399) 06/11/25 05:45 MPV 12.2 fL (7.4-10.4) H 06/11/25 05:45 Neut % (Auto) 49.5 % 06/11/25 05:45 Lymph % (Auto) 37.2 % 06/11/25 05:45 [place] % (Auto) 10.0 % 06/11/25 05:45 Eos % (Auto) 2.3 % 06/11/25 05:45 Baso % (Auto) 0.8 % 06/11/25 05:45 Neut # (Auto) 2.59 10^3/uL (1.8-7.7) 06/11/25 05:45 Lymph # (Auto) 1.9 10^3/uL (0.8-4.8) 06/11/25 05:45 [place] # (Auto) 0.5 10^3/uL (0.2-0.9) 06/11/25 05:45 Eos # (Auto) 0.1 10^3/uL (0.0-0.8) 06/11/25 05:45 Baso # (Auto) 0.0 10^3/uL (0.0-0.1) 06/11/25 05:45 Nucleated RBC % (auto) 0 % 06/11/25 05:45 Nucleated RBCs # 0.0 /100WBC 06/11/25 05:45 Sodium 142 mmol/L (136-145) 06/11/25 05:45 Potassium 3.0 mmol/L (3.5-5.1) L 06/11/25 05:45 Chloride 102 mmol/L (98-107) 06/11/25 05:45 Carbon Dioxide 22 mmol/L (22-29) 06/11/25 05:45 Anion Gap 21.0 (5-19) H 06/11/25 05:45 BUN 12 mg/dL (6-20) 06/11/25 05:45 Creatinine 0.7 mg/dL (0.5-0.9) 06/11/25 05:45 GFR Calculation 100.4 mL/min (90-130) 06/11/25 05:45 Glucose 97 mg/dL (65-115) 06/11/25 05:45 Calculated Osmolality 294 mOsm/kg (285-295) 06/11/25 05:45 Calcium 9.4 mg/dL (8.5-10.5) 06/11/25 05:45 Total Bilirubin 0.5 mg/dL (0.15-1.2) 06/11/25 05:45 AST 18 U/L (0-32) 06/11/25 05:45 ALT 18 U/L (0-33) 06/11/25 05:45 Alkaline Phosphatase 95 U/L (35-105) 06/11/25 05:45 Total Protein 7.4 g/dL (6.6-8.7) 06/11/25 05:45 Albumin 4.6 g/dL (3.5-5.2) 06/11/25 05:45 Globulin 2.8 g/dL (1.3-4.6) 06/11/25 05:45 Lipase 22 U/L (13-60) 06/11/25 05:45 HCG, Qual Negative (Negative) 06/11/25 05:45 Urine Color Yellow (Yellow) 06/11/25 07:53 Urine Appearance Clear (CLEAR) 06/11/25 07:53 Urine pH 5.5 (5-7) 06/11/25 07:53 Ur Specific [place] 1.031 (1.005-1.030) H 06/11/25 07:53 Urine Protein Negative (Negative) 06/11/25 07:53 Urine Glucose (UA) Negative (Normal) 06/11/25 07:53 Urine Ketones 3+ (Negative) H 06/11/25 07:53 Urine Blood 2+ (Negative) A 06/11/25 07:53 Urine Nitrate Negative (Negative) 06/11/25 07:53 Urine Bilirubin Negative (Negative) 06/11/25 07:53 Urine Urobilinogen 1.0 mg/dL (Negative) 06/11/25 07:53 Ur Leukocyte Esterase Negative (Negative) 06/11/25 07:53 Urine RBC 11-20 /hpf (0-2) H 06/11/25 07:53 Urine WBC 0-5 /hpf (0-5) 06/11/25 07:53 Ur Squamous Epith Cells 0-5 /hpf (0-5) 06/11/25 07:53 Amorphous Sediment Not Reportable 06/11/25 07:53 Urine Bacteria None seen /hpf (NONE) 06/11/25 07:53 Hyaline Casts 0.40 /lpf 06/11/25 07:53 All radiology interpretation(s) finalized by discharge Discharge Plan Discharge Patient Disposition: Home Clinical Impression: Cannabis 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 abuse Condition: Stable Prescriptions: New olanzapine 10 mg tablet,disintegrating 10 mg PO Q8H PRN (Reason: nausea and vomiting) Qty: 10 0RF lorazepam [Ativan] 2 mg tablet 2 mg buccal Q6H PRN (Reason: nausea and vomiting) Qty: 10 0RF No Action lorazepam [Ativan] 1 mg tablet 1 mg sublingual Q8H PRN (Reason: nausea and vomiting) Qty: 7 0RF olanzapine 5 mg tablet,disintegrating 5 mg PO .q12 PRN (Reason: nausea and vomiting) Qty: 4 0RF ibuprofen 800 mg tablet 800 mg PO QID PRN (Reason: pain) Qty: 20 0RF Discharge Orders: Discharge ED (Routine); Ordered 06/11/25 Ordered By: Ervin Nolan Referrals: Kathy Dubois, FUEL CELL ENGINEER [Primary Care Provider, Unknown] Discharge Diet: Clear Liquid Discharge Activity: Resume usual activity Patient Instructions: Opioid Safety, Pain Management, Patient Portal & Tash Instructions Activity Restrictions/Additional Instructions: [facility]. It is very important that you follow up as instructed or that you return to the Emergency Department should you have concerns or if your condition changes or worsens in any way. You were seen in the emergency room for persistent nausea and vomiting. This likely related to marijuana use recommend you abstain. CT of your abdomen was negative for any other pathology other lab work did not show any clinically significant abnormalities. Print Language: Italian Coding Level of Care Code ED House Manager for Dannielle Amaya
--- OUTSIDE RECORDS SUMMARY | 2025-06-11 06:09 | XMS_ITS | Data Portability ---
Author Organization ESTELITA Saavedra [facility] Sophy Roberts, [facility] Address [address] [facility] [address] ESTELITA ARTHUR [address] Care Team Providers Care Electronics Warfare Technician Name Role Phone TENZIN YADAV Primary Care [...] plasma 2024 025 [facility], [address] [place] [address], [address], [place], [address], 5 13:19:08 CBC 2024 025 [facility], [address] [place] [address] Ave, [address], [place], [address], 5 13:05:44 beta-HCG, quantitativ e, serum or plasma 2024 025 [facility], [address] [place] [address], [address], [place], [address], 5 07:58:56 test, urine 2024 025 [email or web address] [facility] ([facility]), [address] [place] [address], [address], 5 12:23:26 test, urine 2023 024 [facility] ([facility]), [address] [place] [address], [phone], 4 11:14:53 beta-HCG, qualitative , serum or plasma 2023 024 [facility], [address] [place] [address], [address], [place], [address], 4 05:39:32 Referral None recorded. Procedures None recorded. Surgeries None recorded. Imaging US, obstetric, transvagina l - [id number] 2024 025 [facility] ([facility]), [address] [place] [address], [address], 5 18:42:05 US, obstetric, 1st trimester 2024 025 [email or web address] 2 [facility] ([facility]), [address] [place], [place] [address]s, [place], [address], 14:22:05 Medication Orders ondansetron 4 mg disintegrat ing tablet 2024 [id number], [address], [address], [place], [address], 12:45:47 Proctocort 30 mg rectal suppository 2024 [id number], [address], [address], [place], [address], 12:07:11 Colace 100 mg capsule 2024 [id number], [address], [address], [place], [address], 12:07:17 hydroxyzine HCl 10 mg tablet 2024 025 [id number], [address], [address], [place], [address], 5 10:18:09 amitriptyli ne 10 mg tablet 2024 025 [id number], [address], [address], [place], [address], 5 10:17:51 buspirone 5 mg tablet 2023 025 [id number], [address], [address], [place], [address], 09:42:24 Patient TargetsNo targets recorded. Patient Instructions Encounter Date Encounter Id Patient Instructions Last Modified By Organization Details Last Modified Time 10/31/2024 [id number] Call or return f or questions or concerns. Not available 11/07/2024 11:15:58 12/19/2024 [id number] attention defici t hyperactivity disorder (ADHD) in adults: care instructions Not available 12/19/2024 10:08:46 Call or return f or questions or concerns. Not available 12/19/2024 10:06:56 02/12/2025 [id number] Call or return f or questions or concerns. Not available 02/12/2025 10:26:30 Reason for Referral None Reported. Results Created Date Observation Date Name Description Value Unit Range Abnormal Flag Note LastModifiedBy Organization Detail LastModifiedTime 10/21/20 24 10/21/2024 rapid strep group A, throa t Strep negati ve Not Available [facility] ([facility]) [address] [place] [address], [address], 10/21/2024 11:07:10 10/31/20 24 11/01/2024 HCG, TOTAL , QL HCG, total, ql INDETE RMINAT E see note: abnormal Refer ence Range : Refer ence Range Non-P regna nt: Negat jerman Pregn ant: Posit jerman Repea t testi ng is sugge sted in 2 to 4 days if clini ap indic ated. Not Available [employer] [facility] [address] [place] [address], [address], 11/01/2024 05:39:32 10/31/20 24 10/31/2024 pregn kary test, urine HCG negati ve Not Available [facility] ([facility]) [address] [place] [address], [address], 10/31/2024 11:02:18 02/04/20 25 02/03/2025 pregn kary test, urine HCG positi ve Not Available [facility] ([facility]) [address] [place] [address], [phone], 02/03/2025 12:09:19 02/13/20 25 02/12/2025 CBC WBC 7.2 x10 4.0-10 .5 Not Available [facility] [address], [place], [address], 02/12/2025 13:05:43 02/13/20 25 02/12/2025 CBC RBC 4.44 x10 3.50-5 .50 Not Available [facility] [address] [facility] [facility] [address], [place], [address], 02/12/2025 13:05:43 02/13/20 25 02/12/2025 CBC HGB 13.1 g/dL 12.0-1 6.0 Not Available [facility] [address] [facility] [address] [facility] [address], [place], [address], 02/12/2025 13:05:43 02/13/20 25 02/12/2025 CBC HCT 38.8 % 37.0-4 7.0 Not Available [facility] [address] [facility] [address] [facility] [address], [place], [address], 02/12/2025 13:05:43 02/13/20 25 02/12/2025 CBC MCV 87.4 fL 80.0-9 9.9 Not Available [facility] [address] [address] [facility] [address], [place], [address], 02/12/2025 13:05:43 02/13/20 25 02/12/2025 CBC MCH 29.5 pg 27.0-3 2.0 Not Available [facility] [address] [facility] [address] [facility] [address], [place], [address], 02/12/2025 13:05:43 02/13/20 25 02/12/2025 CBC MCHC 33.8 g/dL 32.0-3 6.0 Not Available [facility] [address] [facility] [address] [facility] 1, [place], [address], 02/12/2025 13:05:43 02/13/20 25 02/12/2025 CBC RDW 14.7 % 11.5-1 4.5 high Not Available [facility] [address] [facility] [address], [place], [address], 02/12/2025 13:05:43 02/13/20 25 02/12/2025 CBC plt 227.9 x10 140.0- 451.0 Not Available [facility] [address] [facility] [address], [place], [address], 02/12/2025 13:05:43 02/13/20 25 02/12/2025 CBC lymphocytes % 23.1 % 20.0-5 0.0 Not Available [facility] [address] [facility] [address], [place], [address], 02/12/2025 13:05:43 02/13/20 25 02/12/2025 CBC granulcytes % 69.6 % 30.0-7 0.0 Not Available [facility] [address] [facility] [address], [place], [address], 02/12/2025 13:05:43 02/13/20 25 02/12/2025 CBC monocytes % 6.3 % 2.0-16 .0 Not Available [facility] [address] [facility] [address], [place], [address], 02/12/2025 13:05:43 02/13/20 25 02/12/2025 CBC granulcytes# 5.0 x10 Not Destini ilable [facility] [address] [facility] [address], [place], [address], 02/12/2025 13:05:43 02/13/20 25 02/12/2025 CBC lymphocytes # 1.7 x10 Not Available [facility] [address] [facility] [address], [place], [address], 02/12/2025 13:05:43 02/13/20 25 02/12/2025 CBC monocytes # 0.5 x10 Not Avai lable [facility] [address] [address], [place], [address], 02/12/2025 13:05:43 02/13/20 25 02/12/2025 CMP (FEMA LE) glucose 100.0 mg/dL 60.0-9 9.0 high Not Available [facility] [address] [address], [place], [address], 02/12/2025 13:19:08 02/13/20 25 02/12/2025 CMP (FEMA LE) BUN (blood urea nitrogen) 9.0 mg/dL 10.0-2 6.0 low Not Available [facility] [address] [address], [place], [address], 02/12/2025 13:19:08 02/13/20 25 02/12/2025 CMP (FEMA LE) creatinine (serum) 0.6 mg/dL 0.4-1. 5 Not Available [facility] [address] [address], [place], [address], 02/12/2025 13:19:08 02/13/20 25 02/12/2025 CMP (FEMA LE) BUN/creatini ne ratio 15.00 ratio Not Available [facility] [address] [address], [place], [address], 02/12/2025 13:19:08 02/13/20 25 02/12/2025 CMP (FEMA LE) eGFR calculated 128.4 Not Available [facility] [address] [address], [place], [address], 02/12/2025 13:19:08 02/13/20 25 02/12/2025 CMP (FEMA LE) total protein 7.1 g/dL 6.0-8. 5 Not Available [facility] [address] [facility] [address], [place], [address], 02/12/2025 13:19:08 02/13/20 25 02/12/2025 CMP (FEMA LE) total bilirubin 0.7 mg/dL 0.2-1. 3 Not Available [facility] [address] [facility] [address], [place], [address], 02/12/2025 13:19:08 02/13/20 25 02/12/2025 CMP (FEMA LE) albumin 4.2 g/dL 3.5-5. 5 Not Available [facility] [address] [facility] [address], [place], [address], 02/12/2025 13:19:08 02/13/20 25 02/12/2025 CMP (FEMA LE) globulin 2.9 calc Not Available [facility] [place] [facility] [address] [facility] [address], [place], [address], 02/12/2025 13:19:08 02/13/20 25 02/12/2025 CMP (FEMA LE) AST (SGOT) 32.0 U/L 0.0-46 .0 Not Available [facility] [address] [facility] [address], [place], [address], 02/12/2025 13:19:08 02/13/20 25 02/12/2025 CMP (FEMA LE) altv (SGPT) 53.0 U/L 13.0-6 9.0 normal Not Available [facility] [address] [facility] [address], [place], [address], 02/12/2025 13:19:08 02/13/20 25 02/12/2025 CMP (FEMA LE) A/G ratio 1.4 ratio Not Available [facility] [address] [facility] [address], [place], [address], 02/12/2025 13:19:08 02/13/2002/12/2025 CMP (FEMA LE) ALP phos 89.0 U/L 30.0-1 40.0 normal Not Available [facility] [address] [facility] [address], [place], [address], 02/12/2025 13:19:08 02/13/2002/12/2025 CMP (FEMA LE) calcium 9.6 mg/dL 8.4-10 .5 Not Available [facility] [address] [facility] [address], [place], [address], 02/12/2025 13:19:08 02/13/2002/12/2025 CMP (FEMA LE) sodium 139.0 mmol/ L 136.0- 145.0 Not Available [facility] [address] [facility] [address], [place], [address], 02/12/2025 13:19:08 02/13/2002/12/2025 CMP (FEMA LE) potassium 3.8 mmol/ L 3.5-5. 1 Not Available [facility] [address] [facility] [address], [place], [address], 02/12/2025 13:19:08 02/13/2002/12/2025 CMP (FEMA LE) chloride 106.0 mmol/ L 98.0-1 10.0 normal Not Available [facility] [address] [facility] [address], [place], [address], 02/12/2025 13:19:08 02/13/2002/12/2025 CMP (FEMA LE) C02 25.0 mmol/ L 22.0-3 1.0 Not Available [facility] [address] [address], [place], [address], 02/12/2025 13:19:08 02/13/20 25 02/12/2025 CMP (FEMA LE) anion gap 8.0 calc Not Available [facility] [address] [facility] [address], [place], [address], 02/12/2025 13:19:08 02/13/20 25 02/12/2025 CMP (FEMA LE) osmolality 286.0 calc Not Available [facility] [address] [facility] [address], [place], [address], 02/12/2025 13:19:08 02/13/20 25 02/13/2025 HCG, TOTAL , QN HCG, total, qn 513561 mIU/m L high Verif ied by repea t jane sis. Refer ence Range Nonpr egnan t or preme nopau medhat <5 Postm enopa usal <10 Value s from diffe rent assay metho ds may vary. The use of this assay to monit or or to diagn ose patie nts with cance r or any condi tion unrel ated to pregn kary has not been clear ed or appro crystal by the FDA or the [facility] actur er of the assay . Not Available [facility] [address] [place], [address], 02/13/2025 07:58:56 02/14/2002/12/2025 US, obste tric, trans vagin al No observ ation record ed. [email or web address] [facility] [address] [place], [address], 02/18/2025 17:14:45 Result Notes None recorded. Problems Name Problem SNOMED Code Status Onset Date Resolution Date Notes Provider Name and Address Organization Details Recorded Time 39306835 Completed 202204/07/2024 Lesa Garcia MD [address] [place], [address], [facility] 18:34:29 Irritable bowel syndrome 52724980 Active [address] [facility] 5 13:15:26 Mixed anxiety and depressive disorder 911066667 Active [address]ñito [facility], Sophy 5 13:15:45 Adult attention deficit hyperactivi ty disorder 617998948 Active [address] [facility], Sophy 5 13:15:53 Problem Notes None recorded. Procedures Surgical History Date Name Laterality Status Provider Name and Address Organization Details Recorded Time 5 ultrasound scan - obstetric completed [facility]/14/2025 16:21:40 3 Date of Last Pap Smear [facility] 06/13/2023 16:27:30 Imaging Results None recorded. Procedure [...] line at bedtime 07/10 completed Recorded 10/21/20 10:20AM by Alex Johnson CMT, Office Visit; Refill Quantity : 30; Tablet; Not Available Not Available Not Available Vitals Date Recorded Body height Body mass index (BMI) Body weight Oxygen saturation Oxygen saturation in Arterial blood by Pulse oximetry Heart rate Respiratory rate Systolic And Diastolic Provider Name and Address Organization Details Last Updated DateTime 5 167.64 cm 29.2 kg/m2 65626.2 2 g 99 % 99 % 52 /min 20 /min 100/70 mm[Hg] ALEX JOHNSON [facility] 5 09:39:15 Date Recorded Body height Body mass index (BMI) Body weight Body temperature Heart rate Oxygen saturation Oxygen saturation in Arterial blood by Pulse oximetry Systolic And Diastolic Provider Name and Address Organization Details Last Updated DateTime 5 167.64 cm 28.9 kg/m2 02874.7 3 g 98.5 [degF] 58 /min 99 % 99 % 110/68 mm[Hg] Gaby Ferreira [facility] 5 12:11:39 Date Recorded Body mass index (BMI) Body weight Provider Name and Address Organization Details Last Updated DateTime 02/12/2025 28.7 kg/m2 33997.44 g TENZIN YADAV, [address], [address], [facility] 02/12/2025 10:20:41 Date Recorded Body height Oxygen saturation Oxygen saturation in Arterial blood by Pulse oximetry Heart rate Respiratory rate Systolic And Diastolic Provider Name and Address Organization Details Last Updated DateTime 5 167.64 cm 98 % 98 % 80 /min 18 /min 96/68 mm[Hg] ALEX JOHNSON [facility] 5 10:05:56 Date Recorded Body height Body mass index (BMI) Body weight Oxygen saturation Oxygen saturation in Arterial blood by Pulse oximetry Heart rate Respiratory rate Systolic And Diastolic Provider Name and Address Organization Details Last Updated DateTime 4 167.64 cm 29.5 kg/m2 37397.4 g 99 % 99 % 99 /min 20 /min 104/80 mm[Hg] ALEX ELIZABETH [facility] 4 10:58:56 Social History Question Answer Notes LastModified by Organizat ion Details LastModified Time Tobacco Smoking Status Never Smoker ALEX ELIZABETH [facility] 04/19/2023 13:56:07 What Is Your Level Of Caffeine Consumption? Moderate [email or web address] Information not available 08/16/2024 What Was The Date Of Your Most Recent Tobacco Screening? 08/16/2024 Information not available 08/16/2024 Sex: Unknown Functional Status Question Answer Note LastModified by Organizat ion Details LastModified Time Do you use any illicit or recreational drugs? No Information not available 12/19/2024 Do you or have you ever used any other forms of tobacco or nicotine? No Information not available 08/16/2024 What is your level of alcohol consumption? Occasional [email or web address] Information not available 08/16/2024 Are you currently employed? Yes [email or web address] Information not available 08/16/2024 Are you able to walk? YESWOREST Information not available 08/16/2024 Are you able to care for yourself? Yes [email or web address] Information n ot available 08/16/2024 Do you or have you ever used any nicotine-free cigarettes, vape, or chewing tobacco? No Information not available 08/16/2024 Mental Status None recorded. Family History Relationship Description Onset Age of this Age Resolved Age Notes LastModified by Organization Details LastModified Time Father Type 2 diabetes mellitus Not available 08/16 09:44:58 Medical History Condition Response Coronary Artery Disease N Other N Gout N Kidney Stones N Blood Diseases N Hyperthyroidism N Blood Transfusion N COPD N Depression N Anxiety Disorder N Muscle, Joint, or Bone Problems N Vision or Eye Problems N Arthritis N Infertility N Polyps N Cancer N Stroke N Varicosities N Fibromyalgia N Headaches N Kidney Disease N Heart Problems N Ear or Hearing Problems N Hospitalizations N Skin Problems N Eating Disorder N Constipation N Tuberculosis N Asthma N Hepatitis N Pulmonary Embolism N Chronic Ear Infections N Chicken Pox N Autism Spectrum Disorder (ASD) N Thrombophilias N Breast Cancer N Hypothyroidism N Lung Disease N Defects or Inherited Disease N Developmental or Behavioral Disorders N Breast Problem N Difficulty Swallowing N Anesthesia Complications N Meniere's disease N Endometriosis N Bladder or Kidney Problems N High Cholesterol N Liver Disease N Allergies/Hayfever N Thyroid Problems N GI Problems N ADD/ADHD N Anemia N Mental Illness N Ovarian Cancer N Diabetes N Bedwetting N Seizures/Epilepsy N Eczema N Diverticulitis N Abuse/Domestic Violence N Reflux/GERD N Heart Disease N Pre-Eclampsia N Hypertension N Osteoporosis N Gynecological History Statement/Question Response Abnormal Pap N Date of Last Pap Smear 03/20/2023 Date of LMP 04/30/2023 LMP Definite Sexually Active? Y Obstetrics History GPAL:G 2 P 0 0 1 0 Type Value Spontaneous 1 Living 0 Total 2 Past Encounters Encounter ID Performer Location Encounter Start Date Encounter Closed Date Diagnosis/Indication Diagnosis SNOMED-CT Code Diagnosis ICD10 Code Diagnosis Note [id number] Ayaz Pritchard MD [facility] ([facility]) [address] [place] [address] 03/22/2023 09:53:27 03/22/2023 20:17:29 Streptococcal sore throat 70224449 J02.0 [id number] TENZIN YADAV [facility]) [address] [place] [phone] 5 04/05/2023 10:16:56 04/19/2023 09:13:31 Vaginitis 23736270 N76.0 [id number] TENZIN YADAV [facility] ([facility]) [address] [place] [id number] 5 04/20/2023 16:08:23 05/14/2023 20:06:38 Trichomonal vaginitis 516970556 A59.00 Vaginal discharge 030137 006 N89.8 [id number] BRYAN GRANDA [facility] ([facility]) [address] [place] [address] 5 05/30/2023 17:39:57 05/30/2023 20:04:05 Missed period 44185999 N92.5 Urine preg robbie test positive 578823389 Z32.01 [id number] Lesa Garcia MD [facility] ([facility]) [address] [place] [address] [id number] 5 06/13/2023 16:22:50 06/25/2023 07:54:54 Gestation period, 6 weeks 87364847 Z3A.01 I reviewed what to avoid in and the plan of care. Normal pre gnancy in multigravida 1885505843 78763 Z34.81 [id number] Lesa Garcia MD [facility] ([facility]) [address] [place] [id number] 5 07/10/2023 10:37:35 07/10/2023 13:22:41 Gestation period, 10 weeks 37077116 Z3A.10 Normal pre gnancy in multigravida 1647170500 44765 Z34.81 Vaginal bl eeding complicating early 567500921 O20.9 FHT good, check blood laessia RH and u/s [id number] Lesa Garcia MD [facility] ([facility]) [address] [place] [id number] 5 07/10/2023 11:42:49 07/10/2023 19:37:30 Vaginal bleeding complicating early 760293832 O20.9 FHT good, check blood alessia RH and u/s [id number] Lesa Garcia MD [facility] ([facility]) [address] [place] [address] 5 07/17/2023 16:23:26 07/25/2023 10:07:31 Normal in multigravida 4159640943 40236 Z34.81 Gestation period, 11 weeks 55599779 Z3A.11 Liver enzy mes level above reference range 594038459 R74.01 Patient states that she has an [...] they can still manage her chronic issues. [id number] Lesa Garcia MD [facility] ([facility]) [address] [place] [id number] 5 08/17/2023 16:43:20 08/28/2023 10:13:31 Gestation period, 16 weeks 01957204 Z3A.16 Normal pre gnancy in multigravida 7707435211 90209 Z34.81 [id number] Lesa Garcia MD [facility] ([facility]) [address] [place] [id number] 5 09/12/2023 11:36:04 09/12/2023 15:51:31 [id number] Lesa Garcia MD [facility] ([facility]) [address] [place] [id number] 5 09/12/2023 16:41:19 09/20/2023 16:40:01 Gestation period, 20 weeks 11656994 Z3A.20 Normal pre gnancy in multigravida 1794421486 42639 Z34.82 Lower abdominal pain 545 97506 R10.30 advised getting a belt. [id number] Lesa Garcia MD [facility] ([facility]) [address] [place] [address]3895[address]783 5 10/05/2023 10:35:54 10/05/2023 10:58:31 Gestation period, 23 weeks 52459063 Z3A.23 Normal pre gnancy in multigravida 5815115741 26957 Z34.82 [id number] Lesa Garcia MD [facility] ([facility]) [address] [place] [id number] 5 11/06/2023 09:52:46 11/06/2023 11:11:42 Normal in multigravida 4095560957 83812 Z34.83 Gestation period, 28 weeks 35337745 Z3A.28 [id number] Lesa Garcia MD [facility] ([facility]) [address] [place] [id number] 5 11/06/2023 09:53:59 11/06/2023 11:19:10 [id number] Z33.1 [id number] Lesa Garcia MD [facility] ([facility]) [address] [place] [id number] 5 11/22/2023 11:13:02 11/22/2023 12:32:42 Gestation period, 30 weeks 33650138 Z3A.30 Normal pre gnancy in multigravida 1734475075 21780 Z34.83 [id number] Lesa Garcia MD [facility] ([facility]) [address] [place] [address] [id number] 5 11/28/2023 08:51:19 11/28/2023 16:21:47 [id number] Lesa Garcia MD [facility] ([facility]) [address] [place] [address] [id number] 5 12/07/2023 16:41:35 12/07/2023 18:32:23 Gestation period, 32 weeks 9314302 Z3A.32 Normal pre gnancy in multigravida 1929192300 12293 Z34.83 [id number] Lesa Garcia MD [facility] ([facility]) [address] [place] [address] [id number] 5 12/21/2023 16:47:34 12/21/2023 17:23:42 Gestation period, 34 weeks 79998223 Z3A.34 Normal pre gnancy in multigravida 7917110978 84752 Z34.83 [id number] Lesa Garcia MD [facility] ([facility]) [address] [place] [address] [id number] 5 01/02/2024 11:00:55 01/02/2024 11:41:47 Gestation period, 36 weeks 69077929 Z3A.36 Normal pre gnancy in multigravida 9982897058 86368 Z34.83 Acute urin jarvis tract infection 263799288 N39.0 [id number] Lesa Garcia MD [facility] ([facility]) [address] [place] [address] [id number] 5 01/09/2024 11:22:37 01/09/2024 12:20:38 Gestation period, 37 weeks 18340272 Z3A.37 Normal pre gnancy in multigravida 3402593686 [address] reptococcus carrier 2217627445 103 Z22.330 discussed w pt, abx during labor [id number] Lesa Garcai MD [facility] ([facility]) [address] [place] [address] [id number] 5 01/16/2024 10:50:11 01/16/2024 11:59:01 Gestation period, 38 weeks 31056093 Z3A.38 Normal pre gnancy in multigravida 3960087308 37740 Z34.83 [id number] Lesa Garcia MD [facility] ([facility]) [address] [place] [address] [id number] 5 01/23/2024 11:49:55 01/23/2024 17:28:41 Gestation period, 39 weeks 13051079 Z3A.39 Normal pre gnancy in multigravida 7258372043 82372 Z34.83 [id number] Lesa Garcia MD [facility] ([facility]) [address] [place] [address] [id number] 5 01/23/2024 15:16:35 01/25/2024 10:43:43 [id number] Lesa Garcia MD [facility] ([facility]) [address] [place] [address] [id number] 5 03/06/2024 09:41:43 03/09/2024 08:02:50 care 033884384 Z39.0 she is interested in the IUD but her bleeding has taken precedence so we will treat that first. Menorrhagia 806299488 N9 2.0 I suspect this is her first period . due to the amount of bleeding we will start high-dose ocp and see her back in a week. [id number] Lesa Garcia MD [facility] ([facility]) [address] [place] [address] [id number] 5 03/26/2024 12:06:36 03/26/2024 15:09:01 Hymenal tag 762297793 N89.8 This will possible shrink and invert with more time . pt may make f/u procedure visit 30min for removal if it continues to cause discomfort . [id number] Lesa Garcia MD [facility] ([facility]) [address] [place] [address] [phone] 04/01/2024 09:53:30 04/01/2024 12:14:00 Acute sinusitis [id number] J01.90 [id number] Lesa Garcia MD [facility] ([facility]) [address] [place] [address] [phone] 04/18/2024 11:59:54 04/18/2024 13:09:26 Hymenal tag [id number] N89.8 removed today. [id number] TENZIN YADAV [facility] ([facility]) [address] [place] [address] [phone] 5 08/16/2024 08:52:50 08/16/2024 10:18:23 Female pelvic floor dysfunction [id number] M99.05 Abdominal pain [id number] R10.9 [id number] EVA PRITCHARD PA-C [facility] ([facility]) [address] [place] [address] [phone] 5 10/21/2024 10:45:07 10/21/2024 11:48:50 Acute pharyngitis [id number] J02.9 neg strep Acute uppe r respiratory infection [id number] J06.9 viral infection. reassuranc e given. symptomati c tx for now. [id number] TENZIN YADAV [facility] ([facility]) [address] [place] [address] [phone] 5 10/31/2024 10:30:09 10/31/2024 15:21:56 Missed period [id number] N92.5 Irritabili ty and anger [id number] R45.4 Will plan to start buspirone after labs return regarding . [id number] TENZIN YADAV CRM SOLUTION ARCHITECT [facility] ([facility]) [address] [place] [address] [phone] 12/19/2024 09:06:16 12/19/2024 10:11:23 Chronic daily headache [id number] 28687 R51.9 Generalize d anxiety disorder 04592518 F41.1 External hemorrhoids 239 32147 K64.4 Adult atte ntion deficit hyperactivity disorder [id number] F90.9 [id number] KENDALL BRIGHT [facility] ([facility]) [address] [place] [address] [phone] 02/03/2025 11:51:29 02/03/2025 15:34:52 Missed period 98688458 N92.5 Positive urine . Advised to schedule follow up with PCP in the next 1-2 weeks. Viral gastroenteritis 11 [id number] A08.4 Increase po fluids. Acute gastroenteritis 69 944041 K52.9 [id number] NATO CRUZ [facility] ([facility]) [address] [place] [address] 02/12/2025 09:32:37 02/12/2025 10:23:15 test positive 842028849 Z32.01 Lightheadedness [id number] R42 [id number] NATO CRUZ [facility] ([facility]) [address] [place] [address] 02/12/2025 12:49:41 02/13/2025 11:06:34 Normal in multigravida [id number] 67719 Z34.81 Health Concerns Section Related Observation LastModified by Organization Detai ls LastModified Time None Recorded Concern Status LastModified by Organization Details LastModified Time None Recorded Advance Directives Directive None Recorded Payers Insurance Date Sequence Insurance Name Policy Number Policy Marrero Covered Member ID Marrero Member ID Guarantor Name 02/12/2025 3 [place] Elizabeth Anne [id number] Elizabeth Anne 04/02/2025 1 [employer] [place] [place] - [place] [id number] Elizabeth Anne [id number] Elizabeth Anne 04/02/2025 [place] [facility] [id number] Elizabeth Anne [id number] Elizabeth Anne 06/06/2024 1 [place] [id number] Franklyn Handley [id number] Elizabeth Anne Notes Date Note Type [...] or something to help with her ADHD. NATO CRUZ [address] [place] [address], [phone], [facility], LJesicaLJesicaC. 11/07/2024 11:16:28 12/19/2024 text/html Generalized Anxi ety DisorderReported bypatient.Onset/Timing :monthsHeadacheReporte d bypatient.Location:[facility] neck; frontal Quality:similar to previous headaches Severity:moderate Duration:15-30 days/month Associated Symptoms:no vomiting;nausea TENZIN YADAV, [address], [phone], [facility], LRaul. 12/19/2024 10:09:19 02/03/2025 text/[facility] Took 2 at home test which were both positive. Patient complains of cramping in the epigastric area. Has N/V/D for the last 2-3 days. LMP was 11/08/2024. KENDALL BRIGHT [address], [address], [facility], LJesicaLSagrario. 02/03/2025 15:34:21 02/12/2025 text/html DizzinessReporte d bypatient.Quality:ligh theadedness Context:non-smoker TENZIN YADAV, [address], [address], [facility], LSergio 02/12/2025 10:28:04 OBGyn Episode Ob Episode Information Episode Created Date Number of Fetuses Patient Bloodtype Patient rh Status Prepregnancy Weight lbs Domestic Partner Domestic Partner Phone Father Name Billing Rep Status 06/13/20 23 1 O Positive Marceli no CLOSED Fetus Data First Name Last Name Admitted to NICU Weight (g) Sex Living Outcome Pediatric Complications Fetus ID Race Codes Race Delivery Type Jacquelyn false F [id number] VAGINAL Luigi Calculation Initial [...] in lbs Pre/Post Dialysis Refused With clothes 158.516565311765 BP Diastolic BP Location Tested BP Systolic BP Type 70 L arm 106 sitting Fetus Heart Rate Present Fetus Movement Comments Flowsheet Date 07/10/2023 Hanson Score Blood Edema Fundus Height Fundus Units Glucose Ketones Leukocytes Nitrite Labor Signs Protein Cervic Dilation Cervic Effacement Cervic Station none 2+ trace Type Weight in lbs Pre/Post Dialysis Refused Weight 153.149501890852 BP Diastolic BP Location Tested BP Systolic [...] in lbs Pre/Post Dialysis Refused With clothes 153.125105777825 BP Diastolic BP Location Tested BP Systolic BP Type 74 R arm 110 sitting Fetus Heart Rate Present Fetus Movement Comments Flowsheet Date 08/17/2023 Hanson Score Blood Edema Fundus Height Fundus Units Glucose Ketones Leukocytes Nitrite Labor Signs Protein Cervic Dilation Cervic Effacement Cervic Station none trace trace Type Weight in lbs Pre/Post Dialysis Refused Weight 155.87543625278 BP Diastolic BP Location Tested BP Systolic [...] in lbs Pre/Post Dialysis Refused With clothes 157.886437330118 BP Diastolic BP Location Tested BP Systolic [...] Weight in lbs Pre/Post Dialysis Refused Weight 163.313194848309 BP Diastolic BP Location Tested BP Systolic [...] Weight in lbs Pre/Post Dialysis Refused Weight 169.988681484220 BP Diastolic BP Location Tested BP Systolic BP Type 60 100 Fetus Heart Rate Present A 138 Fetus Movement Comments kick counts handout discusse d. Girl, Aryih. Garcia peds. BC after baby is born. Flowsheet Date 11/22/2023 Hanson Score Blood Edema Fundus Height Fundus Units Glucose Ketones Leukocytes Nitrite Labor Signs Protein Cervic Dilation Cervic Effacement Cervic Station 30 none trace Negative trace Type Weight in lbs Pre/Post Dialysis Refused With clothes 170.250273503453 BP Diastolic BP Location Tested BP Systolic BP Type 68 L arm 108 sitting Fetus Heart Rate Present A 142 Fetus Movement Comments 101/12.7, RSV vac discussed, no baby nursery but theme of owls and woodland Flowsheet Date 11/28/2023 Hanson Score Blood Edema [...] Weight in lbs Pre/Post Dialysis Refused Weight 176.227672626399 BP Diastolic BP Location Tested BP Systolic [...] Weight in lbs Pre/Post Dialysis Refused Weight 182.112134487124 BP Diastolic BP Location Tested BP Systolic [...] Weight in lbs Pre/Post Dialysis Refused Weight 183.524092873542 BP Diastolic BP Location Tested BP Systolic BP Type 90 118 Fetus Heart Rate Present A 140 Fetus Movement Comments Spotting intermittent. D/C i s watery. Flowsheet Date 01/09/2024 Hanson Score Blood Edema Fundus Height Fundus Units Glucose Ketones Leukocytes Nitrite Labor Signs Protein Cervic Dilation Cervic Effacement Cervic Station 36 none 2+ trace Type Weight in lbs Pre/Post Dialysis Refused Weight 186.769874338819 BP Diastolic BP Location Tested BP Systolic [...] Weight in lbs Pre/Post Dialysis Refused Weight 183.426079833470 BP Diastolic BP Location Tested BP Systolic BP Type 70 119 Fetus Heart Rate Present A 135 Fetus Movement Comments Flowsheet Date 01/23/2024 Hanson Score Blood Edema Fundus Height Fundus Units Glucose Ketones Leukocytes Nitrite Labor Signs Protein Cervic Dilation Cervic Effacement Cervic Station 38 none trace trace Type Weight in lbs Pre/Post Dialysis Refused Weight 185.965348437734 BP Diastolic BP Location Tested BP Systolic [...] in lbs Pre/Post Dialysis Refused With clothes 172.169134488427 BP Diastolic BP Location Tested BP Systolic BP Type 74 R arm 120 sitting Fetus Heart Rate Present Fetus Movement Comments Flowsheet Date 03/26/2024 Hanson Score Blood Edema Fundus Height Fundus Units Glucose Ketones Leukocytes Nitrite Labor Signs Protein Cervic Dilation Cervic Effacement Cervic Station Type Weight in lbs Pre/Post Dialysis Refused Weight 171.670614408056 BP Diastolic BP Location Tested BP Systolic BP Type 60 100 Fetus Heart Rate Present Fetus Movement Comments Flowsheet Date 04/01/2024 Hanson Score Blood Edema Fundus Height Fundus Units Glucose Ketones Leukocytes Nitrite Labor Signs Protein Cervic Dilation Cervic Effacement Cervic Station Type Weight in lbs Pre/Post Dialysis Refused With clothes 172.574005070405 BP Diastolic BP Location Tested BP Systolic [...] Estim ated Date of Delivery false Thalassemia (Citizen Of [place], Hebrew, Mediterranean, Or Background): MCV < 80 false Neural Tube Defect (Meningomyelocele, Spina Bifi da, Or Anencephaly) false Congenital Heart Defect false Down Syndrome false Oumar-Sachs (eg, Yazidi, Cajun, Kuwaiti-Lao) f alse Krista Disease false Sickle Cell Disease Or Trait () false Hemophilia Or Other Blood Disorders false Muscular Dystrophy false Cystic Fibrosis false [place]'s Chorea false Intellectual Disability/Autism false If Yes, [...] Sterilization Discharge Date Comments 4 Sponta neous [facility] idural 40 Lesa Garcia MD Discharge Information Feeding Method Contraceptive Method Maternal HG B and HCT Levels
--- OUTSIDE RECORDS SUMMARY | 2025-06-11 06:09 | XMS_ITS | Clinical Summary ---
Author Organization [facility] Address [address] [place] [address] Phone Care Team Providers Care Flight Engineer Inspector Name Role Phone Unavailable Primary Care Provider [...]
[2025-06-11 06:12] LABS: Hematocrit 36.3 % (36-47); Hemoglobin 11.20 g/dL (11.27-16.99); Mean Corpuscular HGB Conc 30.9 g/dL (30-55); Mean Corpuscular Hemoglobin 23.5 pg (27-33); Mean Corpuscular Volume 76.1 fl (85-98); Nucleated Red Blood Cells % 0 %; Platelet Count 249 10^3/cmm (157-399); Red Blood Count 4.77 10^6/uL (3.85-5.65); White Blood Count 5.22 10^3/uL (3.29-11.43)
[2025-06-11] MEDS: LORazepam 1 MG/0.5 ML injection 2 MG IVP (06:17)
[2025-06-11] MEDS: haloperidol inj 5 mg/mL INJ 1 mL IVP (06:21)
[2025-06-11 06:26] LABS: Alanine Aminotransferase 18 U/L (0-33); Albumin Level 4.6 g/dL (3.5-5.2); Alkaline Phosphatase 95 U/L (35-105); Anion Gap 21.0 (5-19); Aspartate Amino Transferase 18 U/L (0-32); Blood Urea Nitrogen 12 mg/dL (6-20); Calcium 9.4 mg/dL (8.5-10.5); Carbon Dioxide 22 mmol/L (22-29); Chloride 102 mmol/L (98-107); Creatinine Clr Calc Pharmacy 130.7378; Globulin 2.8 g/dL (1.3-4.6); Glucose 97 mg/dL (65-115); Osmolality Calculated 294 mOsm/kg (285-295); Potassium 3.0 mmol/L (3.5-5.1); Sodium 142 mmol/L (136-145); Total Protein 7.4 g/dL (6.6-8.7)
[2025-06-11 06:34] LABS: HCG, Serum Qual Negative (Negative)
[2025-06-11 07:06] LABS: Lipase 22 U/L (13-60)
[2025-06-11 08:55] LABS: Add Urine Microscopic? YES; Glucose Urine UA Negative (Normal); Nitrate Urine Negative (Negative)
[2025-06-11 08:56] LABS: Specific Gravity, Urine 1.031 (1.005-1.030)
--- NOTE | 2025-06-11 09:00 | CT_ITS ---
WS: [id number] CT ABDOMEN AND PELVIS NONCONTRAST HISTORY: flank pain TECHNIQUE: Imaging performed through the abdomen and pelvis. Coronal and sagittal reformats are submitted. All CT scans at [facility] use at least one of these dose optimization techniques: automated exposure control; mA and/or kV adjustment per patient size (includes targeted exams where dose is matched to clinical indication); or iterative reconstruction. DLP: 543.77 mGy.cm COMPARISON: 11/08/2022 Lower thorax: Lung bases are clear. Visualized heart is normal. No hiatal hernia. Liver: Mildly enlarged liver. Dagoberto's lobe is suspected. Gallbladder: Normal gallbladder. No pericholecystic fluid or cholelithiasis. No gallbladder wall thickening. Pancreas: Normal size and attenuation. Normal pancreatic duct. No pancreatitis or mass. Spleen: Normal. Adrenal glands: Normal. No mass. Right kidney: Normal size kidney with no mass or hydronephrosis. Left kidney: Normal size kidney with no mass or hydronephrosis. Aorta: Normal abdominal aorta, no aneurysm or atherosclerosis. No free fluid, intraperitoneal air or significant lymphadenopathy. GI tract: Normal noncontrast imaging of the stomach, small bowel and colon. No obstruction or wall thickening. Normal appendix. Abdominal wall: Small umbilical hernia contains fat only. Pelvis: Uterus is midline. Normal size ovaries. Osseous structures: Unremarkable. CT/CT kidney stone [id number] IMPRESSION: 1. No acute abdominal or pelvic abnormalities. 2. Normal appendix. 3. No renal obstruction or perinephric stranding.
== END 2025-06-11 10:20 | disposition home or self-care (01) ==
PROVIDERS: Emergency Provider Family Medicine; PCP Nurse Practitioner Family
DX: R11.2 Nausea with vomiting, unspecified (principal); F12.10 Cannabis abuse, uncomplicated
CPT/HCPCS: 36415; 71045; 74176; 80053; 81001; 83690; 84703; 85025; 87086; 93005; 96374; 96375; 99285; J1630; J2060

== ENCOUNTER 2025-06-16 06:47 | Emergency (ER) | payer BC, MEDICAID, SELFPAY ==
--- OUTSIDE RECORDS SUMMARY | 2025-06-16 06:51 | XMS_ITS | Data Portability ---
Author Organization ESTELITA Saavedra [facility] Sophy Roberts, [facility] Address [address] ESTELITA ARTHUR [address] Care Team Providers Care Lubricating Engineer Name Role Phone TENZIN YADAV Primary Care [...] plasma 2024 025 [facility], [address], [address], [place], [address], 5 13:19:08 CBC 2024 025 [facility], [address] [place] [address] Ave, [address], [place], [address], 5 13:05:44 beta-HCG, quantitativ e, serum or plasma 2024 025 Iggli [facility], [address] [place] [address], [address], [place], [address], 5 07:58:56 test, urine 2024 025 [email or web address] [facility] ([facility]), [address] [place] [address], [phone], 5 12:23:26 test, urine 2023 024 [facility] ([facility]), [address] [place] [address], [phone], 4 11:14:53 beta-HCG, qualitative , serum or plasma 2023 024 [facility], [address] [place] [address], [address], [place], [address], 4 05:39:32 Referral None recorded. Procedures None recorded. Surgeries None recorded. Imaging US, obstetric, transvagina l - [id number] 2024 025 [facility] ([facility]), [address] [place] [address], [address], 5 18:42:05 US, obstetric, 1st trimester 2024 025 [email or web address] 2 [facility] ([facility]), [address] [place], [place] [address], [place], [address], 14:22:05 Medication Orders ondansetron 4 mg disintegrat ing tablet 2024 [id number], [address], [address], [place], [address], 12:45:47 Proctocort 30 mg rectal suppository 2024 [id number], [address], [address], [place], [address], 12:07:11 Colace 100 mg capsule 2024 [id number], [address], [address], [place], [address], 12:07:17 hydroxyzine HCl 10 mg tablet 2024 025 [id number], [address], [address], [place], [address], 5 10:18:09 amitriptyli ne 10 mg tablet 2024 025 [id number], [address], [address], [place], [address], 5 10:17:51 buspirone 5 mg tablet 2023 025 [id number], [address], [address], [place], [address], 09:42:24 Patient TargetsNo targets recorded. Patient Instructions Encounter Date Encounter Id Patient Instructions Last Modified By Organization Details Last Modified Time 10/31/2024 [id number] Call or return f or questions or concerns. Not available 11/07/2024 11:15:58 12/19/2024 [id number] attention defici t hyperactivity disorder (ADHD) in adults: care instructions Not available 12/19/2024 10:08:46 Call or return f or questions or concerns. Not available 12/19/2024 10:06:56 02/12/2025 [id number] Call or return f or questions or concerns. Not available 02/12/2025 10:26:30 Reason for Referral None Reported. Results Created Date Observation Date Name Description Value Unit Range Abnormal Flag Note LastModifiedBy Organization Detail LastModifiedTime 10/21/20 24 10/21/2024 rapid strep group A, throa t Strep negati ve Not Available [facility] ([facility]) [address] [place] [address], [phone], 10/21/2024 11:07:10 10/31/20 24 11/01/2024 HCG, TOTAL , QL HCG, total, ql INDETE RMINAT E see note: abnormal Refer ence Range : Refer ence Range Non-P regna nt: Negat jerman Pregn ant: Posit jerman Repea t testi ng is sugge sted in 2 to 4 days if clini ap indic ated. Not Available [employer] [facility] [address] [place] [address], [address], 11/01/2024 05:39:32 10/31/20 24 10/31/2024 pregn kary test, urine HCG negati ve Not Available [facility] ([facility]) [address] [place] [address], [phone], 10/31/2024 11:02:18 02/04/20 25 02/03/2025 pregn kary test, urine HCG positi ve Not Available [facility] ([facility]) [address] [place] [address], [phone], 02/03/2025 12:09:19 02/13/20 25 02/12/2025 CBC WBC 7.2 x10 4.0-10 .5 Not Available [facility] [address], [place], [address], 02/12/2025 13:05:43 02/13/20 25 02/12/2025 CBC RBC 4.44 x10 3.50-5 .50 Not Available [facility] [address] [facility] [address], [place], [address], 02/12/2025 13:05:43 02/13/20 25 02/12/2025 CBC HGB 13.1 g/dL 12.0-1 6.0 Not Available [facility] [address] [facility] [address], [place], [address], 02/12/2025 13:05:43 02/13/20 25 02/12/2025 CBC HCT 38.8 % 37.0-4 7.0 Not Available [facility] [address] [facility] 1, [place], [address], 02/12/2025 13:05:43 02/13/20 25 02/12/2025 CBC MCV 87.4 fL 80.0-9 9.9 Not Available [facility] [address] [facility] 1, [place], [address], 02/12/2025 13:05:43 02/13/20 25 02/12/2025 CBC MCH 29.5 pg 27.0-3 2.0 Not Available [facility] [address] [facility] 1, [place], [address], 02/12/2025 13:05:43 02/13/20 25 02/12/2025 CBC MCHC 33.8 g/dL 32.0-3 6.0 Not Available [facility] [address] [facility] 1, [place], [address], 02/12/2025 13:05:43 02/13/20 25 02/12/2025 CBC RDW 14.7 % 11.5-1 4.5 high Not Available [facility] [address] [facility] [address], [place], [address], 02/12/2025 13:05:43 02/13/20 25 02/12/2025 CBC plt 227.9 x10 140.0- 451.0 Not Available [facility] [address] [facility] [address], [place], [address], 02/12/2025 13:05:43 02/13/20 25 02/12/2025 CBC lymphocytes % 23.1 % 20.0-5 0.0 Not Available [facility] [address] [facility] [address], [place], [address], 02/12/2025 13:05:43 02/13/20 25 02/12/2025 CBC granulcytes % 69.6 % 30.0-7 0.0 Not Available [facility] [address] [facility] [address], [place], [address], 02/12/2025 13:05:43 02/13/20 25 02/12/2025 CBC monocytes % 6.3 % 2.0-16 .0 Not Available [facility] [address] [facility] [address], [place], [address], 02/12/2025 13:05:43 02/13/20 25 02/12/2025 CBC granulcytes# 5.0 x10 Not Destini ilable [facility] [address] [facility] [address], [place], [address], 02/12/2025 13:05:43 02/13/20 25 02/12/2025 CBC lymphocytes # 1.7 x10 Not Available [facility] [address] [facility] [address], [place], [address], 02/12/2025 13:05:43 02/13/20 25 02/12/2025 CBC monocytes # 0.5 x10 Not Avai lable [facility] [address] [address], [place], [address], 02/12/2025 13:05:43 02/13/20 25 02/12/2025 CMP (FEMA LE) glucose 100.0 mg/dL 60.0-9 9.0 high Not Available [facility] [address] [address], [place], [address], 02/12/2025 13:19:08 02/13/20 25 02/12/2025 CMP (FEMA LE) BUN (blood urea nitrogen) 9.0 mg/dL 10.0-2 6.0 low Not Available [facility] [address] [address], [place], [address], 02/12/2025 13:19:08 02/13/20 25 02/12/2025 CMP (FEMA LE) creatinine (serum) 0.6 mg/dL 0.4-1. 5 Not Available [facility] [address] [address], [place], [address], 02/12/2025 13:19:08 02/13/20 25 02/12/2025 CMP (FEMA LE) BUN/creatini ne ratio 15.00 ratio Not Available [facility] [address] [address], [place], [address], 02/12/2025 13:19:08 02/13/20 25 02/12/2025 CMP (FEMA LE) eGFR calculated 128.4 Not Available [facility] [address] [address], [place], [address], 02/12/2025 13:19:08 02/13/20 25 02/12/2025 CMP (FEMA LE) total protein 7.1 g/dL 6.0-8. 5 Not Available [facility] [address] [facility] [address], [place], [address], 02/12/2025 13:19:08 02/13/20 25 02/12/2025 CMP (FEMA LE) total bilirubin 0.7 mg/dL 0.2-1. 3 Not Available [facility] [address] [facility] [address], [place], [address], 02/12/2025 13:19:08 02/13/20 25 02/12/2025 CMP (FEMA LE) albumin 4.2 g/dL 3.5-5. 5 Not Available [facility] [address] [facility] [address], [place], [address], 02/12/2025 13:19:08 02/13/20 25 02/12/2025 CMP (FEMA LE) globulin 2.[address] [facility] [address] [facility] [address], [place], [address], 02/12/2025 13:19:08 02/13/20 25 02/12/2025 CMP (FEMA LE) AST (SGOT) 32.0 U/L 0.0-46 .0 Not Available [facility] [address] [facility] [address], [place], [address], 02/12/2025 13:19:08 02/13/20 25 02/12/2025 CMP (FEMA LE) altv (SGPT) 53.0 U/L 13.0-6 9.0 normal Not Available [facility] [address] [facility] [address], [place], [address], 02/12/2025 13:19:08 02/13/20 25 02/12/2025 CMP (FEMA LE) A/G ratio 1.4 ratio Not Available [facility] [address] [facility] [address], [place], [address], 02/12/2025 13:19:08 02/13/2002/12/2025 CMP (FEMA LE) ALP phos 89.0 U/L 30.0-1 40.0 normal Not Available [facility] [address] [facility] 1, [place], [address], 02/12/2025 13:19:08 02/13/2002/12/2025 CMP (FEMA LE) calcium 9.6 mg/dL 8.4-10 .5 Not Available [facility] [address] [facility] 1, [place], [address], 02/12/2025 13:19:08 02/13/2002/12/2025 CMP (FEMA LE) sodium 139.0 mmol/ L 136.0- 145.0 Not Available [facility] [address] [facility] 1, [place], [address], 02/12/2025 13:19:08 02/13/2002/12/2025 CMP (FEMA LE) potassium 3.8 mmol/ L 3.5-5. 1 Not Available [facility] [address] [facility] 1, [place], [address], 02/12/2025 13:19:08 02/13/2002/12/2025 CMP (FEMA LE) chloride 106.0 mmol/ L 98.0-1 10.0 normal Not Available [facility] [address] [facility] 1, [place], [address], 02/12/2025 13:19:08 02/13/2002/12/2025 CMP (FEMA LE) C02 25.0 mmol/ L 22.0-3 1.0 Not Available [facility] [address] [address], [place], [address], 02/12/2025 13:19:08 02/13/20 25 02/12/2025 CMP (FEMA LE) anion gap 8.0 calc Not Available [facility] [address] [facility] [address], [place], [address], 02/12/2025 13:19:08 02/13/20 25 02/12/2025 CMP (FEMA LE) osmolality 286.0 calc Not Available [facility] [address] [facility] [address], [place], [address], 02/12/2025 13:19:08 02/13/20 25 02/13/2025 HCG, TOTAL , QN HCG, total, qn 590937 mIU/m L high Verif ied by repea [...] appro crystal by the FDA or the [facility] actur er of the assay . Not Available [facility] [address] [place], [address], 02/13/2025 07:58:56 02/14/2002/12/2025 US, obste tric, trans vagin al No observ ation record ed. [facility] [address] [place], [address], 02/18/2025 17:14:45 Result Notes None recorded. Problems Name Problem SNOMED Code Status Onset Date Resolution Date Notes Provider Name and Address Organization Details Recorded Time 01580418 Completed 202204/07/2024 Lesa Garcia MD [address] [place], [address], [facility] 18:34:29 Irritable bowel syndrome 36909761 Active [address] [facility], Sophy 5 13:15:26 Mixed anxiety and depressive disorder 393911846 Active [address]ñito [facility], Sophy 5 13:15:45 Adult attention deficit hyperactivi ty disorder 577604209 Active [address]ñito [facility], Sophy 5 13:15:53 Problem Notes None recorded. Procedures Surgical History Date Name Laterality Status Provider Name and Address Organization Details Recorded Time 5 ultrasound scan - obstetric completed [facility]/14/2025 16:21:40 3 Date of Last Pap Smear completed [facility] 06/13/2023 16:27:30 Imaging Results None recorded. Procedure [...] Updated DateTime 5 167.64 cm 29.2 kg/m2 80227.2 2 g 99 % 99 % 52 /min 20 /min 100/70 mm[Hg] ALEX JOHNSON [facility] 5 09:39:15 Date Recorded Body height Body mass index (BMI) Body weight Body temperature Heart rate Oxygen saturation Oxygen saturation in Arterial blood by Pulse oximetry Systolic And Diastolic Provider Name and Address Organization Details Last Updated DateTime 5 167.64 cm 28.9 kg/m2 63033.7 3 g 98.5 [degF] 58 /min 99 % 99 % 110/68 mm[Hg] Gaby Ferreira [facility] 5 12:11:39 Date Recorded Body mass index (BMI) Body weight Provider Name and Address Organization Details Last Updated DateTime 02/12/2025 28.7 kg/m2 31188.44 g TENZIN YADAV, [address], [address], [facility] 02/12/2025 10:20:41 Date Recorded Body height Oxygen saturation Oxygen saturation in Arterial blood by Pulse oximetry Heart rate Respiratory rate Systolic And Diastolic Provider Name and Address Organization Details Last Updated DateTime 5 167.64 cm 98 % 98 % 80 /min 18 /min 96/68 mm[Hg] ALEX JOHNSON [facility] 5 10:05:56 Date Recorded Body height Body mass index (BMI) Body weight Oxygen saturation Oxygen saturation in Arterial blood by Pulse oximetry Heart rate Respiratory rate Systolic And Diastolic Provider Name and Address Organization Details Last Updated DateTime 4 167.64 cm 29.5 kg/m2 27346.4 g 99 % 99 % 99 /min 20 /min 104/80 mm[Hg] ALEX ELIZABETH [facility] 4 10:58:56 Social History Question Answer Notes LastModified by Organizat ion Details LastModified Time Tobacco Smoking Status Never Smoker ALEX ELIZABETH [facility] 04/19/2023 13:56:07 What Is Your Level Of Caffeine Consumption? Moderate [email or web address] Information not available 08/16/2024 What Was The [...] is your level of alcohol consumption? Occasional [email or web address] Information not available 08/16/2024 Are you currently employed? Yes [email or web address] Information not available 08/16/2024 Are you able to walk? YESWOREST [email or web address] Information not available 08/16/2024 Are you able to care for yourself independently? Yes [email or web address] Information not available 08/16/2024 Do you or have you ever used any nicotine-free cigarettes, vape, or chewing tobacco? No Information not available 08/16/2024 Mental Status None recorded. Family History Relationship Description Onset Age of this Age Resolved Age Notes LastModified by Organization Details LastModified Time Father Type 2 diabetes mellitus [email or web address] Not available 08/16 09:44:58 Medical History Condition Response Coronary Artery Disease N Other N Gout N Kidney Stones N Blood Diseases N Hyperthyroidism N Breast Cancer N Blood Transfusion N Depression N Hypothyroidism N Lung Disease N COPD N Developmental or Behavioral Disorders N Defects or Inherited Disease N Breast Problem N Difficulty Swallowing N Anesthesia Complications N Anxiety Disorder N Meniere's disease N Muscle, Joint, or Bone Problems N Vision or Eye Problems N Arthritis N Infertility N Polyps N Cancer N Stroke N Varicosities N Endometriosis N Bladder or Kidney Problems N High Cholesterol N Liver Disease N Fibromyalgia N Headaches N Kidney Disease N Allergies/Hayfever N Heart [...] SNOMED-CT Code Diagnosis ICD10 Code Diagnosis Note [id number] Ayaz Pritchard MD [facility] ([facility]) [address] [place] [phone] 03/22/2023 09:53:27 03/22/2023 20:17:29 Streptococcal sore throat 37119272 J02.0 [id number] TENZIN YADAV [facility]) [address] [place] [phone] 5 04/05/2023 10:16:56 04/19/2023 09:13:31 Vaginitis 28577578 N76.0 [id number] TENZIN YADAV [facility] ([facility]) [address] [place] [phone] 5 04/20/2023 16:08:23 05/14/2023 20:06:38 Trichomonal vaginitis 966877838 A59.00 Vaginal discharge 492323 006 N89.8 [id number] BRYAN GRANDA [facility] ([facility]) [address] [place] [phone] 5 05/30/2023 17:39:57 05/30/2023 20:04:05 Missed period 14200345 N92.5 Urine preg robbie test positive 340914389 Z32.01 [id number] Lesa Garcia MD [facility] ([facility]) [address] [place] [phone] 5 06/13/2023 16:22:50 06/25/2023 07:54:54 Gestation period, 6 weeks 32155613 Z3A.01 I reviewed what to avoid in and the plan of care. Normal pre gnancy in multigravida 0713048384 93545 Z34.81 [id number] Lesa Garcia MD [facility] ([facility]) [address] [place] [phone] 5 07/10/2023 10:37:35 07/10/2023 13:22:41 Gestation period, 10 weeks 24958935 Z3A.10 Normal pre gnancy in multigravida 5149190357 08125 Z34.81 Vaginal bl eeding complicating early 924192763 O20.9 FHT good, check blood alessia RH and u/s [id number] Lesa Garcia MD [facility] ([facility]) [address] [place] [phone] 5 07/10/2023 11:42:49 07/10/2023 19:37:30 Vaginal bleeding complicating early 654754988 O20.9 FHT good, check blood alessia RH and u/s [id number] Lesa Garcia MD [facility] ([facility]) [address] [place] [phone] 5 07/17/2023 16:23:26 07/25/2023 10:07:31 Normal in multigravida 0780249045 02776 Z34.81 Gestation period, 11 weeks 06020730 Z3A.11 Liver enzy mes level above reference range 253222051 R74.01 Patient states that she has an [...] they can still manage her chronic issues. [id number] Lesa Garcia MD [facility] ([facility]) [address] [place] [phone] 5 08/17/2023 16:43:20 08/28/2023 10:13:31 Gestation period, 16 weeks 53020821 Z3A.16 Normal pre gnancy in multigravida 1534908632 92559 Z34.81 [id number] Lesa Garcia MD [facility] ([facility]) [address] [place] [phone] 5 09/12/2023 11:36:04 09/12/2023 15:51:31 [id number] Lesa Garcia MD [facility] ([facility]) [address] [place] [phone] 5 09/12/2023 16:41:19 09/20/2023 16:40:01 Gestation period, 20 weeks 14746775 Z3A.20 Normal pre gnancy in multigravida 7988205064 77465 Z34.82 Lower abdominal pain 545 74892 R10.30 advised getting a belt. [id number] Lesa Garcia MD [facility] ([facility]) [address] [place] [phone] 5 10/05/2023 10:35:54 10/05/2023 10:58:31 Gestation period, 23 weeks 15637218 Z3A.23 Normal pre gnancy in multigravida 5071665377 97850 Z34.82 [id number] Lesa Garcia MD [facility] ([facility]) [address] [place] [phone] 5 11/06/2023 09:52:46 11/06/2023 11:11:42 Normal in multigravida 2366113135 93480 Z34.83 Gestation period, 28 weeks 12048971 Z3A.28 [id number] Lesa Garcia MD [facility] ([facility]) [address] [place] [phone] 5 11/06/2023 09:53:59 11/06/2023 11:19:10 97696487 Z33.1 [id number] Lesa Garcia MD [facility] ([facility]) [address] [place] [phone] 5 11/22/2023 11:13:02 11/22/2023 12:32:42 Gestation period, 30 weeks 90910619 Z3A.30 Normal pre gnancy in multigravida 9807857231 66402 Z34.83 [id number] Lesa Garcia MD [facility] ([facility]) [address] [place] [address] [phone] 5 11/28/2023 08:51:19 11/28/2023 16:21:47 [id number] Lesa Garcia MD [facility] ([facility]) [address] [place] [address] [phone] 5 12/07/2023 16:41:35 12/07/2023 18:32:23 Gestation period, 32 weeks 1860707 Z3A.32 Normal pre gnancy in multigravida 2115908588 57919 Z34.83 [id number] Lesa Garcia MD [facility] ([facility]) [address] [place] [address] [phone] 5 12/21/2023 16:47:34 12/21/2023 17:23:42 Gestation period, 34 weeks 60128839 Z3A.34 Normal pre gnancy in multigravida 1072429499 52820 Z34.83 [id number] Leas Garcia MD [facility] ([facility]) [address] [place] [id number] 5 01/02/2024 11:00:55 01/02/2024 11:41:47 Gestation period, 36 weeks 07491056 Z3A.36 Normal pre gnancy in multigravida 7789786907 68620 Z34.83 Acute urin jarvis tract infection 377768091 N39.0 [id number] Lesa Garcia MD [facility] ([facility]) [address] [place] [address] [id number] 5 01/09/2024 11:22:37 01/09/2024 12:20:38 Gestation period, 37 weeks 74471015 Z3A.37 Normal pre gnancy in multigravida 5968021143 [address] reptococcus carrier 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 Z22.330 discussed w pt, abx during labor [id number] Lesa Garcia MD [facility] ([facility]) [address] [place] [address] [id number] 5 01/16/2024 10:50:11 01/16/2024 11:59:01 Gestation period, 38 weeks 53234895 Z3A.38 Normal pre gnancy in multigravida 3780120560 34703 Z34.83 [id number] Lesa Garcia MD [facility] ([facility]) [address] [place] [address] [id number] 5 01/23/2024 11:49:55 01/23/2024 17:28:41 Gestation period, 39 weeks 55365827 Z3A.39 Normal pre gnancy in multigravida 3474247544 00777 Z34.83 [id number] Lesa Garcia MD [facility] ([facility]) [address] [place] [address] [phone] 5 01/23/2024 15:16:35 01/25/2024 10:43:43 [id number] Lesa Garcia MD [facility] ([facility]) [address] [place] [address] [id number] 5 03/06/2024 09:41:43 03/09/2024 08:02:50 care 149204219 Z39.0 she is interested in the IUD but her bleeding has taken precedence so we will treat that first. Menorrhagia 809214956 N9 2.0 I suspect this is her first period . due to the amount of bleeding we will start high-dose ocp and see her back in a week. [id number] Lesa Garcia MD [facility] ([facility]) [address] [place] [address] [phone] 5 03/26/2024 12:06:36 03/26/2024 15:09:01 Hymenal tag 303965340 N89.8 This will possible shrink and invert with more time . pt may make f/u procedure visit 30min for removal if it continues to cause discomfort . [id number] Lesa Garcia MD [facility] ([facility]) [address] [place] [address] [phone] 5 04/01/2024 09:53:30 04/01/2024 12:14:00 Acute sinusitis 94425341 J01.90 [id number] Lesa Garcia MD [facility] ([facility]) [address] [place] [address] [phone] 5 04/18/2024 11:59:54 04/18/2024 13:09:26 Hymenal tag [id number] N89.8 removed today. [id number] TENZIN YADAV [facility] ([facility]) [address] [place] [address] [id number] 5 08/16/2024 08:52:50 08/16/2024 10:18:23 Female pelvic floor dysfunction 661884731 M99.05 Abdominal pain 81358909 R10.9 [id number] EVA PRITCHARD PA-C [facility] ([facility]) [address] [place] [address] [id number] 5 10/21/2024 10:45:07 10/21/2024 11:48:50 Acute pharyngitis 949173009 J02.9 neg strep Acute uppe r respiratory infection 03297057 J06.9 viral infection. reassuranc e given. symptomati c tx for now. [id number] TENZIN YADAV [facility] ([facility]) [address] [place] [address] [phone] 5 10/31/2024 10:30:09 10/31/2024 15:21:56 Missed period 64164051 N92.5 Irritabili ty and anger 494218815 R45.4 Will plan to start buspirone after labs return regarding . [id number] TENZIN YADAV [employer] [facility] ([facility]) [address] [place] [address] [id number] 5 12/19/2024 09:06:16 12/19/2024 10:11:23 Chronic daily headache 1352307841 35417 R51.9 Generalize d anxiety disorder 35389698 F41.1 External hemorrhoids 239 90888 K64.4 Adult atte ntion deficit hyperactivity disorder 120688037 F90.9 [id number] KENDALL BRIGHT [facility] ([facility]) [address] [place] [address] [phone] 02/03/2025 11:51:29 02/03/2025 15:34:52 Missed period [id number] N92.5 Positive urine . Advised to schedule follow up with PCP in the next 1-2 weeks. Viral gastroenteritis 11 [id number] A08.4 Increase po fluids. Acute gastroenteritis 69 028590 K52.9 [id number] [facility] ([facility]) [address] [place] [phone] 02/12/2025 09:32:37 02/12/2025 10:23:15 test positive [id number] Z32.01 Lightheadedness [id number] [facility] ([facility]) [address] [place] [address] 02/12/2025 12:49:41 02/13/2025 11:06:34 Normal in multigravida [id number] Z34.81 Health Concerns Section Related Observation LastModified by Organization Detai ls LastModified Time None Recorded Concern Status LastModified by Organization Details LastModified Time None Recorded Advance Directives Directive None Recorded Payers Insurance Date Sequence Insurance Name Policy Number Policy Marrero Covered Member ID Marrero Member ID Guarantor Name 02/12/2025 3 [place] Elizabeth Anne [id number] Elizabeth Anne 04/02/2025 1 [place] [id number] Elizabeth Anne [id number] Elizabeth Anne 04/02/2025 [place] [facility] [id number] Elizabeth Anne [id number] Elizabeth Anne 06/06/2024 1 [place] [id number] Franklyn Handley [id number] Elizabeth Anne OBGyn Episode Ob Episode Information Episode Created Date Number of Fetuses Patient Bloodtype Patient rh Status Prepregnancy Weight lbs Domestic Partner Domestic Partner Phone Father Name 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 Status 06/13/20 23 1 O Positive Marceli [...] Gestation 0 [email or web address] 07/17/2023 01/29/20 24 0 Pre- Flowsheet Flowsheet Date 06/13/2023 Hanson Score Blood Edema Fundus Height Fundus Units Glucose Ketones Leukocytes Nitrite Labor Signs Protein Cervic Dilation Cervic Effacement Cervic Station Type Weight in lbs Pre/Post Dialysis Refused With clothes 158.974937003810 BP Diastolic BP Location Tested BP Systolic BP Type 70 L arm 106 sitting Fetus Heart Rate Present Fetus Movement Comments Flowsheet Date 07/10/2023 Hanson Score Blood Edema Fundus Height Fundus Units Glucose Ketones Leukocytes Nitrite Labor Signs Protein Cervic Dilation Cervic Effacement Cervic Station none 2+ trace Type Weight in lbs Pre/Post Dialysis Refused Weight 153.345689762545 BP Diastolic BP Location Tested BP Systolic [...] in lbs Pre/Post Dialysis Refused With clothes 153.347814442156 BP Diastolic BP Location Tested BP Systolic BP Type 74 R arm 110 sitting Fetus Heart Rate Present Fetus Movement Comments Flowsheet Date 08/17/2023 Hanson Score Blood Edema Fundus Height Fundus Units Glucose Ketones Leukocytes Nitrite Labor Signs Protein Cervic Dilation Cervic Effacement Cervic Station none trace trace Type Weight in lbs Pre/Post Dialysis Refused Weight 155.58647217189 BP Diastolic BP Location Tested BP Systolic [...] in lbs Pre/Post Dialysis Refused With clothes 157.864210603736 BP Diastolic BP Location Tested BP Systolic [...] Weight in lbs Pre/Post Dialysis Refused Weight 163.570935232501 BP Diastolic BP Location Tested BP Systolic [...] Weight in lbs Pre/Post Dialysis Refused Weight 169.502776843924 BP Diastolic BP Location Tested BP Systolic [...] in lbs Pre/Post Dialysis Refused With clothes 170.301895781246 BP Diastolic BP Location Tested BP Systolic [...] Weight in lbs Pre/Post Dialysis Refused Weight 176.104238582696 BP Diastolic BP Location Tested BP Systolic [...] Weight in lbs Pre/Post Dialysis Refused Weight 182.870654843333 BP Diastolic BP Location Tested BP Systolic [...] Weight in lbs Pre/Post Dialysis Refused Weight 183.367692466356 BP Diastolic BP Location Tested BP Systolic BP Type 90 118 Fetus Heart Rate Present A 140 Fetus Movement Comments Spotting intermittent. D/C i s watery. Flowsheet Date 01/09/2024 Hanson Score Blood Edema Fundus Height Fundus Units Glucose Ketones Leukocytes Nitrite Labor Signs Protein Cervic Dilation Cervic Effacement Cervic Station 36 none 2+ trace Type Weight in lbs Pre/Post Dialysis Refused Weight 186.358458673080 BP Diastolic BP Location Tested BP Systolic [...] Weight in lbs Pre/Post Dialysis Refused Weight 183.557463773006 BP Diastolic BP Location Tested BP Systolic BP Type 70 119 Fetus Heart Rate Present A 135 Fetus Movement Comments Flowsheet Date 01/23/2024 Hanson Score Blood Edema Fundus Height Fundus Units Glucose Ketones Leukocytes Nitrite Labor Signs Protein Cervic Dilation Cervic Effacement Cervic Station 38 none trace trace Type Weight in lbs Pre/Post Dialysis Refused Weight 185.435173671076 BP Diastolic BP Location Tested BP Systolic [...] in lbs Pre/Post Dialysis Refused With clothes 172.354030049739 BP Diastolic BP Location Tested BP Systolic BP Type 74 R arm 120 sitting Fetus Heart Rate Present Fetus Movement Comments Flowsheet Date 03/26/2024 Hanson Score Blood Edema Fundus Height Fundus Units Glucose Ketones Leukocytes Nitrite Labor Signs Protein Cervic Dilation Cervic Effacement Cervic Station Type Weight in lbs Pre/Post Dialysis Refused Weight 171.626856024210 BP Diastolic BP Location Tested BP Systolic BP Type 60 100 Fetus Heart Rate Present Fetus Movement Comments Flowsheet Date 04/01/2024 Hanson Score Blood Edema Fundus Height Fundus Units Glucose Ketones Leukocytes Nitrite Labor Signs Protein Cervic Dilation Cervic Effacement Cervic Station Type Weight in lbs Pre/Post Dialysis Refused With clothes 172.322864065050 BP Diastolic BP Location Tested BP Systolic [...] Estim ated Date of Delivery false Thalassemia (Turkmen, Uzbek, Mediterranean, Or Background): MCV < 80 false Neural Tube Defect (Meningomyelocele, Spina Bifi da, Or Anencephaly) false Congenital Heart Defect false Down Syndrome false Oumar-Sachs (eg, Mu-Ism, Cajun, Syrian-Nauruan) f alse Krista Disease false Sickle Cell Disease Or Trait () false Hemophilia Or Other Blood Disorders false Muscular Dystrophy false Cystic Fibrosis false Yani's Chorea false Intellectual Disability/Autism false If Yes, [...] Sterilization Discharge Date Comments 4 Sponta neous [facility]-Ep idural 40 Lesa Garcia MD Discharge Information Feeding Method Contraceptive Method Maternal HG B and HCT Levels
--- OUTSIDE RECORDS SUMMARY | 2025-06-16 06:51 | XMS_ITS | Clinical Summary ---
Author Organization [facility] Address [address] [place] [address] Phone Care Team Providers Care Technology Internship Name Role Phone Unavailable Primary Care Provider [...]
[2025-06-16 06:52] VITALS: BMI 28.2
--- NOTE | 2025-06-16 07:13 | W.ED.ABDPA2 ---
HPI - Abdominal Pain General: Chief Complaint: Abdominal Pain Stated Complaint: abd pain Time Seen by Provider: 06/16/25 06:55 History of Present Illness: 25-year-old female presents emergency room persistent epigastric discomfort patient seen twice this [facility] with similar complaints. At the last visit she had a little bit of red blood cells in her urine and a CT was done which was negative urine culture was also negative. Liver functions renal functions were all normal as well. Patient relates several years ago she was supposed to have some endoscopy done but it was never done. She not had any bloody stools she notes never CT at sick her stomach and had loose stools. She denies any medic easy melena symptoms carcinosis no dysuria urgency or frequency. She does frequently get very nauseous. At her last visit she was given Rocephin and had discharged home with cephalexin pending results of her urine culture which I reviewed today was ultimately negative. Associated Symptoms: Reports diarrhea and nausea; Denies chills, coffee ground emesis, dysuria, fever(s), hematochezia, hematemesis and melena Related Data Home Medications ?Medication ?Instructions ?Recorded ?Confirmed simethicone 80 mg chewable tablet 80 mg PO DAILY PRN gas 06/16/25 06/16/25 (Gas Relief (simethicone)) Previous Rx's ?Medication ?Instructions ?Recorded lorazepam 1 mg tablet (Ativan) 1 mg sublingual Q8H PRN nausea and 06/09/25 vomiting #7 tabs olanzapine 5 mg disintegrating 5 mg PO .q12 PRN nausea and 06/09/25 tablet vomiting #4 tabs lorazepam 2 mg tablet (Ativan) 2 mg buccal Q6H PRN nausea and 06/11/25 vomiting #10 tabs olanzapine 10 mg disintegrating 10 mg PO Q8H PRN nausea and 06/11/25 tablet vomiting #10 tabs pantoprazole 40 mg tablet,delayed 40 mg PO BID 10 days #40 tabs 06/16/25 release (Protonix) Allergies Allergy/AdvReac Type Severity Reaction Status Date / Time No Known Allergies Allergy Verified 06/11/25 06:03 Review of Systems Const: Denies: fever(s) or chills Card: Denies: chest pain Resp: Denies: dyspnea GI: Reports: abdominal pain, nausea and diarrhea; Denies: hematemesis, coffee ground emesis, hematochezia or melena : Denies: dysuria, urinary frequency or urinary urgency Musc: Denies: neck pain or back pain Skin/Breast: Denies: rash PFSH ED PFSH: Medical History History of chlamydia IBS (irritable bowel syndrome) [place] History of ADHD no support for this diangosis Bipolar 2 disorder Low back pain Dysmenorrhea Depression ADD (attention deficit disorder) Anxiety IBS (irritable bowel syndrome) Family History Father Diabetes Hypercholesteremia Denies family history of Colon cancer Ovarian cancer Heart disease Breast cancer Hypertension Uterine cancer Thyroid disease Stroke Social History Smoking and tobacco/nicotine status: never used tobacco/nicotine Substance/Drug Use: current Substance/Drug use frequency: few times a month Physical Exam Const: COMMON NORMALS: no acute distress GENERAL APPEARANCE: cooperative and comfortable ORIENTATION/CONSCIOUSNESS: Yes awake, Yes oriented to person, Yes oriented to place and Yes oriented to time HENMT: COMMON NORMALS: normocephalic, atraumatic and hearing grossly normal bilaterally HEAD & SCALP: normocephalic and atraumatic Resp: COMMON NORMALS: normal respiratory effort, No retractions, No use of accessory muscles and clear to auscultation bilaterally AUSCULTATION: clear to auscultation bilaterally Cardio: COMMON NORMALS: regular rate, regular rhythm and No murmurs present (Cardio) RATE: regular rate RHYTHM: regular rhythm GI: COMMON NORMALS: Soft to palpation and No hepatosplenomegaly present AUSCULTATION: Yes normoactive bowel sounds PALPATION: Yes Soft to palpation, No Tenderness to palpation present (GI), No Guarding due to palpation present (GI) and Yes No hepatosplenomegaly present Extremity: COMMON NORMALS: normal to inspection, capillary refill normal, no clubbing, cyanosis or edema, no calf tenderness and no pedal edema Neuro: SENSORIUM/ORIENTATION: Yes oriented to person, Yes oriented to place and Yes oriented to time Skin: COMMON NORMALS: no rashes or lesions noted GENERAL SKIN EXAM: no rashes or lesions noted Course Vital Signs: Vital signs: Vital Signs Pulse Rate 56 L 06/16/25 08:56 Respiratory Rate 15 06/16/25 07:23 Blood Pressure 95/54 06/16/25 08:56 Pulse Oximetry 100 06/16/25 08:56 Oxygen Delivery Me thod Room Air 06/16/25 07:23 MDM - Abdominal Pain Medical Decision Making Improved GI cocktail she has not had any vomiting. This visit. Abdominal exam generally benign labs show chronic microcytic anemia that is unchanged. She did get relief with a GI cocktail we will start her on pantoprazole 40 twice daily for 10 days then 40 daily refer to general surgery for further evaluation possible EGD Medical Records I reviewed the patient's medical records. Lab Data I reviewed the patient's lab results. 06/16/25 07:07 06/16/25 07:07 Labs/Radiology: Laboratory Results WBC 7.52 10^3/uL (3.29-11.43) 06/16/25 07:07 RBC 4.65 10^6/uL (3.85-5.65) 06/16/25 07:07 Hgb 10.90 g/dL (11.27-16.99) L 06/16/25 07:07 Hct 35.7 % (36-47) L 06/16/25 07:07 MCV 76.8 fl (85-98) L 06/16/25 07:07 MCH 23.4 pg (27-33) L 06/16/25 07:07 MCHC 30.5 g/dL (30-55) 06/16/25 07:07 RDW 16.2 % (12.1-15.1) H 06/16/25 07:07 Plt Count 299 10^3/cmm (157-399) 06/16/25 07:07 MPV 11.6 fL (7.4-10.4) H 06/16/25 07:07 Neut % (Auto) 67.5 % 06/16/25 07:07 Lymph % (Auto) 22.9 % 06/16/25 07:07 Mineral % (Auto) 6.5 % 06/16/25 07:07 Eos % (Auto) 2.3 % 06/16/25 07:07 Baso % (Auto) 0.5 % 06/16/25 07:07 Neut # (Auto) 5.08 10^3/uL (1.8-7.7) 06/16/25 07:07 Lymph # (Auto) 1.7 10^3/uL (0.8-4.8) 06/16/25 07:07 Mineral # (Auto) 0.5 10^3/uL (0.2-0.9) 06/16/25 07:07 Eos # (Auto) 0.2 10^3/uL (0.0-0.8) 06/16/25 07:07 Baso # (Auto) 0.0 10^3/uL (0.0-0.1) 06/16/25 07:07 Nucleated RBC % (auto) 0 % 06/16/25 07:07 Nucleated RBCs # 0.0 /100WBC 06/16/25 07:07 Sodium 139 mmol/L (136-145) 06/16/25 07:07 Potassium 3.7 mmol/L (3.5-5.1) 06/16/25 07:07 Chloride 105 mmol/L (98-107) 06/16/25 07:07 Carbon Dioxide 20 mmol/L (22-29) L 06/16/25 07:07 Anion Gap 17.7 (5-19) 06/16/25 07:07 BUN 8 mg/dL (6-20) 06/16/25 07:07 Creatinine 0.5 mg/dL (0.5-0.9) 06/16/25 07:07 GFR Calculation 148.0 mL/min (90-130) H 06/16/25 07:07 Glucose 102 mg/dL (65-115) 06/16/25 07:07 Calculated Osmolality 287 mOsm/kg (285-295) 06/16/25 07:07 Calcium 9.2 mg/dL (8.5-10.5) 06/16/25 07:07 Total Bilirubin 0.5 mg/dL (0.15-1.2) 06/16/25 07:07 AST 25 U/L (0-32) 06/16/25 07:07 ALT 22 U/L (0-33) 06/16/25 07:07 Alkaline Phosphatase 87 U/L (35-105) 06/16/25 07:07 Total Protein 7.0 g/dL (6.6-8.7) 06/16/25 07:07 Albumin 4.4 g/dL (3.5-5.2) 06/16/25 07:07 Globulin 2.6 g/dL (1.3-4.6) 06/16/25 07:07 HCG, Qual Negative (Negative) 06/16/25 07:07 Urine Color Yellow (Yellow) 06/16/25 07:48 Urine Appearance Clear (CLEAR) 06/16/25 07:48 Urine pH 5.5 (5-7) 06/16/25 07:48 Ur Specific [place] 1.025 (1.005-1.030) 06/16/25 07:48 Urine Protein Negative (Negative) 06/16/25 07:48 Urine Glucose (UA) Negative (Normal) 06/16/25 07:48 Urine Ketones 1+ (Negative) H 06/16/25 07:48 Urine Blood Negative (Negative) 06/16/25 07:48 Urine Nitrate Negative (Negative) 06/16/25 07:48 Urine Bilirubin Negative (Negative) 06/16/25 07:48 Urine Urobilinogen 1.0 mg/dL (Negative) 06/16/25 07:48 Ur Leukocyte Esterase Negative (Negative) 06/16/25 07:48 Urine RBC 0-2 /hpf (0-2) 06/16/25 07:48 Urine WBC 0-5 /hpf (0-5) 06/16/25 07:48 Ur Squamous Epith Cells 0-5 /hpf (0-5) 06/16/25 07:48 Amorphous Sediment Not Reportable 06/16/25 07:48 Urine Bacteria None seen /hpf (NONE) 06/16/25 07:48 Hyaline Casts 0.40 /lpf 06/16/25 07:48 No radiology studies performed this visit Discharge Plan Discharge Patient Disposition: Home Clinical Impression: Dyspepsia Condition: Stable Prescriptions: New pantoprazole [Protonix] 40 mg tablet,delayed release (DR/EC) 40 mg PO BID 10 Days Qty: 40 0RF Rx Instructions: 1 p.o. twice daily x 10 days then 1 p.o. daily No Action lorazepam [Ativan] 1 mg tablet 1 mg sublingual Q8H PRN (Reason: nausea and vomiting) Qty: 7 0RF olanzapine 5 mg tablet,disintegrating 5 mg PO .q12 PRN (Reason: nausea and vomiting) Qty: 4 0RF olanzapine 10 mg tablet,disintegrating 10 mg PO Q8H PRN (Reason: nausea and vomiting) Qty: 10 0RF lorazepam [Ativan] 2 mg tablet 2 mg buccal Q6H PRN (Reason: nausea and vomiting) Qty: 10 0RF simethicone [Gas Relief (simethicone)] 80 mg Tablet,Chewable 80 mg PO DAILY PRN (Reason: gas ) Discharge Orders: Discharge ED (Routine); Ordered 06/16/25 Ordered By: Ervin Nolan Referrals: Kathy Dubois FNP [Primary Care Provider, Unknown] Discharge Diet: Usual diet Discharge Activity: Increase activity as tolerated Patient Instructions: Opioid Safety, Pain Management, Patient Portal & Tash Instructions Activity Restrictions/Additional Instructions: Thank you for choosing [facility] for your healthcare needs today. It is very important that you follow up as instructed or that you return to the Emergency Department should you have concerns or if your condition changes or worsens in any way. You were seen in the emergency room with complaint of persistent abdominal discomfort. Your laboratory tests did not show significant abnormality you are mildly anemic but this has been chronic and is unchanged. Recommend you start on pantoprazole 40 mg 1 pill twice a day for 10 days then 1 pill daily case management make arrangements for you to follow-up with surgery for consideration of EGD. (Scope of your stomach) Stand Alone Forms: Work/School Release Print Language: Bahraini Coding Level of Care Code ED Branch Service Representative for Dannielle Amaya
[2025-06-16 07:23] VITALS: BP 104/67; PULSE 55; RESP 15; O2SAT 98
[2025-06-16 07:26] LABS: Hematocrit 35.7 % (36-47); Hemoglobin 10.90 g/dL (11.27-16.99); Mean Corpuscular HGB Conc 30.5 g/dL (30-55); Mean Corpuscular Hemoglobin 23.4 pg (27-33); Mean Corpuscular Volume 76.8 fl (85-98); Nucleated Red Blood Cells % 0 %; Platelet Count 299 10^3/cmm (157-399); Red Blood Count 4.65 10^6/uL (3.85-5.65); White Blood Count 7.52 10^3/uL (3.29-11.43)
[2025-06-16 07:28] LABS: Alanine Aminotransferase 22 U/L (0-33); Albumin Level 4.4 g/dL (3.5-5.2); Alkaline Phosphatase 87 U/L (35-105); Anion Gap 17.7 (5-19); Aspartate Amino Transferase 25 U/L (0-32); Blood Urea Nitrogen 8 mg/dL (6-20); Calcium 9.2 mg/dL (8.5-10.5); Carbon Dioxide 20 mmol/L (22-29); Chloride 105 mmol/L (98-107); Creatinine Clr Calc Pharmacy 179.6444; Globulin 2.6 g/dL (1.3-4.6); Glucose 102 mg/dL (65-115); Osmolality Calculated 287 mOsm/kg (285-295); Potassium 3.7 mmol/L (3.5-5.1); Sodium 139 mmol/L (136-145); Total Protein 7.0 g/dL (6.6-8.7)
[2025-06-16 07:31] LABS: HCG, Serum Qual Negative (Negative)
--- NOTE | 2025-06-16 08:10 | PC.PHAR ---
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 Can she get meds to bed before leaving??
[2025-06-16] MEDS: lidocaine 2% viscous 15 ML, aluminum-mag hydrox-simethicon 30 ML, sucralfate oral liq 1 GM PO (08:14)
[2025-06-16 08:17] LABS: Glucose Urine UA Negative (Normal); Nitrate Urine Negative (Negative); Specific Gravity, Urine 1.025 (1.005-1.030)
[2025-06-16 08:19] LABS: Add Urine Microscopic? YES
[2025-06-16] MEDS: ondansetron 2 mg/ML SDV 2 mL 4 MG IVP (08:19)
[2025-06-16 08:37] VITALS: BP 95/54; PULSE 55; O2SAT 100
[2025-06-16 08:56] VITALS: BP 95/54; PULSE 56; O2SAT 100
--- NOTE | 2025-06-18 14:45 | PC.NURSE ---
General surgery referral sent.
== END 2025-06-16 08:59 | disposition home or self-care (01) ==
PROVIDERS: Emergency Provider Family Medicine; PCP Nurse Practitioner Family
DX: R10.13 Epigastric pain (principal)
CPT/HCPCS: 80053; 81001; 84703; 85025; 96374; 99284; J2405; J7030; J9999

== ENCOUNTER 2025-07-07 07:56 | Outpatient (CLI) | payer BC, MEDICAID, SELFPAY ==
--- NOTE | 2025-07-07 08:15 | US_ITS ---
WS: [id number] Gallbladder and right upper quadrant ultrasound, 07/07/2025 Clinical Data: abdominal pain Comparison: Right upper quadrant and gallbladder ultrasound, 10/31/2022 Findings: The gallbladder shows no sludge or stone. The wall measures 0.2 cm with no pericholecystic fluid. The common bile duct is 0.2 cm and there are no intrahepatic ductal abnormalities. Liver shows no cysts, masses or dilated intrahepatic ducts. There is slight hepatomegaly, 19.0 cm. The liver echotexture is uniform. The pancreas is not obscured by overlying bowel gas and no cyst, pseudocyst, or evidence of pancreatitis is noted. Right kidney measures 10.0 cm and no cyst, masses or hydronephrosis can be seen. The aorta and inferior vena cava show no vascular abnormalities. US/US gall bladder [id number] Impression: Minimal hepatomegaly.
== END 2025-07-07 07:57 | disposition home or self-care (01) ==
LOC: RAD 07:57
PROVIDERS: PCP Nurse Practitioner Family; Visit Provider Surgery
DX: R10.9 Unspecified abdominal pain (principal); R16.0 Hepatomegaly, not elsewhere classified
CPT/HCPCS: 76705

== ENCOUNTER 2025-07-18 07:23 | Outpatient (CLI) | payer BC, MEDICAID, SELFPAY ==
--- NOTE | 2025-07-18 08:00 | NM_ITS ---
WS: [id number] NUCLEAR MEDICINE HIDA SCAN WITH GALLBLADDER EJECTION FRACTION HISTORY: gallbladder problem COMPARISON: Gallbladder ultrasound 07/07/2025 TECHNIQUE: The patient was intravenously injected with 7.9 mCi of TC99m Mebrofenin. Immediate imaging over the right upper quadrant was followed by 5 minute image and additional images for a total of 60 minutes. Normal uptake of radiotracer throughout the liver. Activity identified in the gallbladder at 10 minutes and well distended by 60 minutes. Activity in the proximal small bowel was seen by 60 minutes. Good washout of the radiotracer from the liver by 60 minutes. The patient then drank 8 ounces of Ensure Plus. Ejection fraction at 60 minutes was 72%. Normal GB ejection fraction is 35-75%. Post fatty meal symptoms: None. NM/NM hepatobiliary w phar* [id number] IMPRESSION: 1. Normal HIDA scan. 2. Normal gallbladder ejection fraction.
== END 2025-07-18 07:24 | disposition home or self-care (01) ==
PROVIDERS: PCP Nurse Practitioner Family; Visit Provider Surgery
DX: K82.9 Disease of gallbladder, unspecified (principal)
CPT/HCPCS: 78227; A9537